=== PATIENT | male | born 1935 | race Caucasian/White ===

== ENCOUNTER 2017-04-17 09:54 | Inpatient (IN) | payer OTHER ==
[~2017-04-17] VITALS: Ht 157.5 cm; Wt 69.4 kg
[2017-04-17] MEDS ORDERED: NITROGLYCERIN 0.4 MG SL TAB SL ONE (10:30)
[2017-04-17] MEDS ORDERED: ASPirin 325 MG TAB PO ONE (10:30)
[2017-04-17 10:55] LABS: Basophils # (auto) 0.1 uL; Eosinophils # (auto) 0.2 uL; Eosinophils % (auto) 3.6 % (0.0-7.0); Hematocrit 38.3 % (41.0-53.0); Lymphocytes # (auto) 1.5 uL; Lymphocytes % (auto) 24.6 % (10.0-50.0); Mean Corpuscular Hemoglobin 32.9 pg (28.0-32.0); Mean Corpuscular Hgb Conc. 33.9 g/dL (32.0-36.0); Mean Corpuscular Volume 96.8 fL (80.0-100.0); Monocytes # (auto) 0.7 uL; Monocytes % (auto) 11.3 % (0.0-12.0); Neutrophils # (auto) 3.6 uL; Neutrophils % (auto) 59.5 % (37.0-80.0); Nucleated Red Blood Cells % 0.1 %; Platelet Count (auto) 158 10^3/uL (140-450); Red Blood Cells 3.96 10^6/uL (4.5-5.90); Red Cell Distribution Width 14.2 % (11.8-14.3)
[2017-04-17 11:11] LABS: Partial Thromboplastin Time 26.8 sec (22.64-33.71); Prothrombin Time 10.9 sec (9.37-12.3)
[2017-04-17 11:23] LABS: Alanine Aminotransferase 22 U/L (16-61); Albumin 3.4 g/dL (3.4-5.0); Alkaline Phosphatase 108 U/L (45-117); Anion Gap 7 (5-15); Aspartate Aminotransferase 21 U/L (15-37); BUN/Creatinine Ratio 22.4; Bilirubin, Total 0.5 mg/dL (0.2-1.0); Blood Urea Nitrogen 26 mg/dL (7-18); Calcium 8.3 mg/dL (8.5-10.1); Carbon Dioxide 26 mmol/L (21-32); Chloride 107 mmol/L (98-107); GFR African American 78 mL/min; GFR Non-African American 64 mL/min; Glucose 70 mg/dL (74-106); Potassium 4.1 mmol/L (3.5-5.1); Sodium 140 mmol/L (136-145); Total Protein 6.5 g/dL (6.4-8.2)
[2017-04-17 11:32] LABS: Urine Bacteria NONE SEEN /hpf (None Seen); Urine Blood Negative /uL (Negative); Urine Specific Gravity 1.023 (1.001-1.035); Urine WBC <1 /hpf (0 - 3)
[2017-04-17] MEDS ORDERED: ACETAMINOPHEN 500 MG TAB PO PRN (12:00)
[2017-04-17] MEDS ORDERED: TEMAZEPAM 15 MG CAP PO PRN (12:00)
[2017-04-17] MEDS ORDERED: LACTULOSE 20Gm/30ML SOLN PO PRN (12:00)
[2017-04-17] MEDS ORDERED: LORazepam 0.5 MG TAB PO PRN (12:00)
[2017-04-17] MEDS ORDERED: NITROGLYCERIN 0.4 MG SL TAB SL PRN (12:00)
[2017-04-17] MEDS ORDERED: HYDROcodone-ACET 5/325MG TAB PO PRN (12:00)
[2017-04-17] MEDS ORDERED: PROMETHAZINE HCL 25 MG/ML 1ML IV PRN (12:00)
[2017-04-17] MEDS ORDERED: MORPHINE SULF INJ 2 MG/ML SYRINGE 1ML IV PRN ×2 (12:15)
[2017-04-17] MEDS: SODIUM CHLORIDE 0.9% 1,000 ML IV SCH (12:24)
[2017-04-17] MEDS: NITROGLYCERIN 0.2MG/HR TOPICAL PATCH TD SCH (12:25)
[2017-04-17] MEDS: ENOXAPARIN SOD 40 MG/0.4 ML SYRINGE SC SCH (12:25)
[2017-04-17] MEDS: FAMOTIDINE 20 MG TAB PO SCH ×2 (12:25→21:58)
[2017-04-17 12:50] LABS: CRP High Sensitivity 0.38 mg/dL (< 0.3)
[2017-04-17] MEDS ORDERED: ENOXAPARIN SOD 80 MG/0.8ML SYRINGE SC ONE (13:15)
[2017-04-17] MEDS ORDERED: IOHEXOL 350 MG/ML 100ML IJ ONE (13:22)
[2017-04-17] MEDS ORDERED: RANOLAZINE ER 500 MG TAB PO ONE (14:00)
[2017-04-17 14:18] VITALS: BP 153/77
[2017-04-17] MEDS ORDERED: ATOR40TA52 PO (16:11)
[2017-04-17] MEDS ORDERED: LEVO25TA6 PO (16:11)
[2017-04-17] MEDS ORDERED: OMEP20CA74 PO (16:11)
[2017-04-17] MEDS ORDERED: RANO500T PO (16:11)
[2017-04-17] MEDS ORDERED: ASPI81TA27 PO (16:11)
[2017-04-17] MEDS ORDERED: TERA2CAP45 PO (16:11)
[2017-04-17] MEDS ORDERED: LATA0.0015 EACHEYE (16:11)
[2017-04-17] MEDS ORDERED: CAR125T PO (16:11)
[2017-04-17] MEDS ORDERED: NITR0.4S29 SL (16:12)
[2017-04-17] MEDS ORDERED: BUDE0.5S IN (16:12)
[2017-04-17 17:01] VITALS: BP 130/73
[2017-04-17 20:00] VITALS: BP 131/83
[2017-04-17] MEDS: RANOLAZINE ER 500 MG TAB PO SCH (21:58)
[2017-04-17] MEDS ORDERED: ATORVASTATIN 20 MG TAB PO SCH (22:00)
[2017-04-17 22:33] VITALS: BP 131/83
[2017-04-18] MEDS: SODIUM CHLORIDE 0.9% 1,000 ML IV SCH (01:29)
[2017-04-18 05:46] VITALS: BP 121/69
[2017-04-18 07:03] LABS: Albumin 3.1 g/dL (3.4-5.0); Bilirubin, Total 0.6 mg/dL (0.2-1.0); Calcium 8.2 mg/dL (8.5-10.1); Potassium 3.7 mmol/L (3.5-5.1); Total Protein 6.1 g/dL (6.4-8.2)
[2017-04-18 08:52] VITALS: BP 149/78
[2017-04-18] MEDS ORDERED: ASPirin 81 mg TAB PO SCH (10:00)
[2017-04-18] MEDS: FAMOTIDINE 20 MG TAB PO SCH (10:26)
[2017-04-18] MEDS: ENOXAPARIN SOD 40 MG/0.4 ML SYRINGE SC SCH (10:27)
[2017-04-18] MEDS: NITROGLYCERIN 0.2MG/HR TOPICAL PATCH TD SCH (10:29)
[2017-04-18] MEDS: RANOLAZINE ER 500 MG TAB PO SCH (10:39)
[2017-04-18 15:37] VITALS: BP 149/78
== END 2017-04-18 16:00 | disposition home or self-care (01) | DRG 309 ==
LOC: ER 09:54 → TELE 09:55 → TELE-WESTW 12:43
PROVIDERS: ADMIT Internal Medicine; ATTEND Internal Medicine
DX: R00.1 Bradycardia, unspecified (principal); I24.9 Acute ischemic heart disease, unspecified; E11.9 Type 2 diabetes mellitus without complications; J98.11 Atelectasis; R07.9 Chest pain, unspecified; J44.9 Chronic obstructive pulmonary disease, unspecified; I25.10 Atherosclerotic heart disease of native coronary artery without angina pectoris; I10 Essential (primary) hypertension; E78.5 Hyperlipidemia, unspecified; I70.0 Atherosclerosis of aorta; R91.1 Solitary pulmonary nodule; Z79.82 Long term (current) use of aspirin; Z79.899 Other long term (current) drug therapy; Z79.02 Long term (current) use of antithrombotics/antiplatelets; Z95.5 Presence of coronary angioplasty implant and graft; Z95.1 Presence of aortocoronary bypass graft; Z85.46 Personal history of malignant neoplasm of prostate
CPT/HCPCS: 36415; 71045; 71275; 80053; 80061; 81001; 82550; 83880; 84443; 84484; 85025; 85379; 85610; 85652; 85730; 86141; 93005; 93306

== ENCOUNTER 2024-03-25 09:27 | Inpatient (IN) | payer OTHER ==
[~2024-03-25] VITALS: Ht 157.5 cm; Wt 77.5 kg
[~2024-03-25 09:27] MED LIST: AMLO1TAB22 PO; APIX2.5T PO; ASPI-543 PO; ATOR40TA52 PO; BICA50TA42 PO; BRIM0.2S17 LEFTEYE; BUDE0.5S IN; CAR125T PO; CARB200T4 PO; EZET10TA22 PO; FERR325T20 PO; FLUT50SP NAS; FURO20TA3 PO; KETO2CRE4 TOP; LATA0.008 EACHEYE; LEVO25TA6 PO; LEVO75TA6 PO; LOS25T PO; MET25T PO; NITR0.4S29 SL; OMEP20CA74 PO; RANO500T PO; ROSU40TA47 PO; TERA2CAP79 PO
--- NOTE | 2024-03-25 10:23 | ED.PDOC ---
SOB-HPI HPI Comments Initial Vital Signs: Temp :99.6 BP:100/67 HR:142 RR:16 SpO2: 94 Past Medical History: Denies Past Surgical History: Denies Social History: Denies smoking, ETOH, or drug use. Medications: No medications. Allergies: NKDA HPI: Poor Historian. 88-year-old male brought in by ambulance from home for evaluation of I can not really tell you why I am here however patient states he has been having some chills that goes away and he takes Tylenol at home. He also states having decreased p.o. intake unknown reason. Denies any pain anywhere in his body. Patient has history of hemorrhoids and he stopped taking his blood thinners which has not know exactly the name of for few days. He is not clear whether he resumed it or not. Patient was found with hypoxemia at home was placed on supplemental oxygen. Past Medcial History: Past Surgical History: REVIEW OF SYSTEMS: CONSTITUTIONAL: Denies acute: fever, diaphoresis, HEAD: Denies acute: headache, photophobia Eyes: Denies acute: Double vision, vision loss, eye pain, eye discharge. EARS: Denies acute: tinnitus, hearing loss, ear discharge, ear pain, THROAT: Denies acute: sore throat, swelling, difficulty swallowing , pain with swallowing, change in voice. NECK: Denies acute: neck pain, neck swelling, stiff neck. HEART: Denies acute : chest pain, palpitations, LUNGS: Denies acute: SOB, wheezing, cough, hemoptysis ABDOMEN: Denies acute: abdominal pain, Nausea, Vomiting, diarrhea, melena , hematemesis, hematochezia SKIN: Denies acute: rash, redness, lesions, itchiness. EXTREMITIES: Denies acute: calf pain, numbness, tingling, weakness, denies pain in extremity. Denies acute: Low back pain. Neuro: Denies acute: focal neurological deficit, motor or sensory focal neurological deficit, tremors, seizure like activity, confusion, dizziness, change in mental status, loss of bowel or bladder function, cauda equina like symptoms. : Denies acute: dysuria, hematuria, flank pain, increase in urinary frequency. PSYCH: Denies acute: hallucination, suicidal ideation, homicidal ideation. PHYSICAL EXAM: General: no acute distress, awake and alert. Head: normocephalic, atraumatic. Neck: supple, trachea is midline, no swelling. Throat: Normal phonation. Eyes:, no erythema, no purulent discharge, no proptosis, no icterus. Heart: regular rate, regular rhythm, no significant murmur appreciated. Lungs: no apparent respiratory distress, Able to speak in full sentences. No wheezing, no rhonchi, no crackles. No stridors Clear to auscultation bilaterally. Abdomen: non tender to palpation, non distended, soft, no guarding, no rebound, + bowel sounds. Neuro: Awake, Alert, oriented to name, self, situation, follows commands GCS=15. Speech is normal. Skin: no petechia, no purpura, no cyanosis, non-pale, not jaundice. Lower extremities: --no - Pitting edema no deformity, no focal swelling, no calf TTP. Makes eye contact. moves all four extremities. Face: no apparent facial droop. ED COURSE: @11:46 am Chief Complaint: Shortness of Breath Time Seen by MD: 10:14 Primary Care Provider: ASHLEY Vergara notes: Nurses Notes, Allergies Information Source: Patient Mode of Arrival: EMS Past Medical History PAST MEDICAL HISTORY: CAD, COPD, HTN Surgical History: CABG, PTCA Family History Family History: Unknown Social History Smoker: Non-Smoker Alcohol: Denies ETOH Use Drugs: Denies Drug Use Lives In: Home Physical Exam General Appearance: Other (a) HEENT: Other (a) Neck: Other (a) Respiratory: Other (a) Cardiovascular: Other (a) Breast Exam: Other (a) Gastrointestinal: Other (a) Genitalia: Other (a) Pelvic: Other (a) Rectal: Other (a) Extremities: Other (a) Neurologic: Other (a) Cerebellar Function: Other (a) Reflexes: Other (a) Skin: Other (a) Lymphatic: Other (a) Was a procedure done? Was a procedure done?: No Differential Dx Differential Diagnosis: Other (DDx include ACS, unstable angina, anxiety, PE, pneumothroax, neoplasm, cardiac ischemia, COPD, asthma, CHF, pleural effusion, tobacco abuse, pneumonia, hypoxia, hypercapnia, anemia., infection/sepsis., pulmonary edema. Asthma, Cardiac tamponade, infection.) X-Ray, Labs, Meds, VS Vital Signs Date Time Temp Pulse Resp B/P (MAP) Pulse Ox O2 Delivery O2 Flow Rate FiO2 03/25/24 12:48 97.7 100 16 95/49 (64) 95 97.7 03/25/24 12:46 100 16 95 Nasal Cannula 4.0 03/25/24 09:47 99.6 142 16 100/67 (78) 94 03/25/24 09:31 131 Lab Test 03/25/24 13:12 03/25/24 11:56 03/25/24 11:54 03/25/24 10:43 Range/Units Troponin I High Sensitivity 6 6 6 </=54 ng/L Thyroid Stimulating Hormone (TSH) 0.79 0.55-4.78 uIU/mL Influenza Type A Antigen Negative Negative Influenza Type B Antigen Negative Negative SARS-CoV-2 Antigen (Rapid) Negative NEGATIVE White Blood Count 13.8 H 4.4-10.8 10^3/uL Red Blood Count 3.43 L 4.5-5.90 10^6/uL Hemoglobin 11.0 L 13.5-17.5 g/dL Hematocrit 32.7 L 41.0-53.0 % Mean Corpuscular Volume 95.4 80.0-100.0 fL Mean Corpuscular Hemoglobin 32.2 H 28.0-32.0 pg Mean Corpuscular Hemoglobin Concent 33.7 32.0-36.0 g/dL Red Cell Distribution Width 15.2 H 11.8-14.3 % Platelet Count 271 140-450 10^3/uL Mean Platelet Volume 8.6 6.9-10.8 fL Neutrophils (%) (Auto) 83.7 H 37.0-80.0 % Lymphocytes (%) (Auto) 4.7 L 10.0-50.0 % Monocytes (%) (Auto) 11.1 0.0-12.0 % Eosinophils (%) (Auto) 0.3 0.0-7.0 % Basophils (%) (Auto) 0.2 0.0-2.0 % Neutrophils # (Auto) 11.5 H 1.6-8.6 10 ^3/uL Lymphocytes # (Auto) 0.7 0.4-5.4 10 ^3/uL Monocytes # (Auto) 1.5 H 0-1.3 10 ^3/uL Eosinophils # (Auto) 0 0-0.8 10 ^3/uL Basophils # (Auto) 0 0-0.2 10 ^3/uL Nucleated Red Blood Cells 0.0 % Sodium Level 139 136-145 mmol/L Potassium Level 3.8 3.5-5.1 mmol/L Chloride Level 107 98-107 mmol/L Carbon Dioxide Level 27 20-31 mmol/L Anion Gap 5 5-15 Blood Urea Nitrogen 20 9-23 mg/dL Creatinine 1.33 H 0.700-1.30 mg/dL Glomerular Filtration Rate Calc 51 >90 mL/min BUN/Creatinine Ratio 15.0 10.0-20.0 Serum Glucose 104 74-106 mg/dL Lactic Acid Level 1.2 0.4-2.0 mmol/L Calcium Level 8.3 L 8.7-10.4 mg/dL Magnesium Level 2.0 1.6-2.6 mg/dL Total Bilirubin 0.5 0.2-1.0 mg/dL Aspartate Amino Transferase (AST) 262 H 13-40 U/L Alanine Aminotransferase (ALT) 196 H 7-40 U/L Alkaline Phosphatase 93 46-116 U/L B-Type Natriuretic Peptide 288.25 0-100 pg/mL Total Protein 5.4 L 5.7-8.2 g/dL Albumin 3.1 L 3.2-4.8 g/dL Microbiology Date/Time Source Procedure Growth Status 03/25/24 12:15 Blood Blood Culture - Final NO GROWTH AFTER 5 DAYS OF INCUBATION. Complete 03/25/24 11:54 Blood Blood Culture - Final NO GROWTH AFTER 5 DAYS OF INCUBATION. Complete [place] [id number] Ph: [phone] DIAGNOSTIC IMAGING Diagnostic Imaging Report : [id number] Signed PATIENT: ZANDER UMANZOR PACCT: [id number] UNIT: [id number] : 1935 LOC: ER ROOM / BED: / AGE / SEX: 88 / M ADM STATUS: REG ER SERVICE 1022 ORDERING PHYSICIAN: BOOM HART DO PROCEDURE(s): CXRP - CHEST PORTABLE REASON: chills, hypoxemia ORDER NUMBER(s): [id number], ACCESSION NUMBER(s): [id number] EXAM: XY CHEST PORTABLE Indication: chills, hypoxemia Technique: Single frontal view of the chest was obtained Comparison: None FINDINGS: Lines and Tubes: None Lungs: Multifocal left lung opacities. Pleura: Small left effusion. No pneumothorax. Cardiomediastinal contours: Unremarkable. Atherosclerotic vascular calcifications of the thoracic aorta are noted. Bones: No acute osseous abnormality. IMPRESSION: Multifocal left lung opacities. Small left pleural effusion. ATED BY: VIANEY ANNA MD DICTATED DATE/TIME: 03/25/241054 SIGNED BY: VIANEY ANNA MD SIGNED DATE/TIME: 03/25/241054 CC: Time of 1ST Reevaluation: 11:16 Reevaluation 1ST: Unchanged Patient Education/Counseling: Diagnosis, Treatment Family Education/Counseling: No Family Present Comments Patient presented with 88-year-old male brought in by ambulance from home for evaluation of I can not really tell you why I am here however patient states he has been having some chills that goes away and he takes Tylenol at home. Patient was found with the above mentioned diagnosis. the following medications were ordered: METOPROL 5MG, NS1L, FUROSEMIDE 20MG the following tests were ordered: LABS, CXR, UA Patient ED course and VS have been stabilized. Patient has been reassessed in the ED and remained in a stable condition. Pertinent incidental findings were discussed with the patient and/or family. Patient/family voices understanding and is agreeable with plan. Patient has been observed in the ED adequate length of time to insure improvement/stability. Escalation of care considered: Consideration of escalation to observation or admission Patient was ADMITTED to the medicine team for further evaluation and treatment of their presentation. All the reports of any imaging studies that were ordered by myself were reviewed by myself. Departure 1 Departure Time of Disposition: 11:14 Impression: Primary Impression: Multifocal pneumonia Additional Impressions: Pleural effusion Elevated LFTs Disposition: ADMITTED INPATIENT Admit to: Tele Condition: Guarded Additional Instructions: e-Prescriptions Doxycycline Monohydrate (Doxycycline Monohydrate) 100 Mg Cap 1 CAP PO BID, #20 CAP Prov: SHANE FULTON MD 03/30/24 Methylprednisolone (Medrol Dosepak) 4 Mg Attila 4 MG PO UD, #21 TAB UAD Prov: SHANE FULTON MD 03/30/24 Discharged With: Self Critical Care Note Critical Care Time?: No Stability Stability form required: No Heart Score Heart Score: Heart Score Response (Comments) Value History Slightly Suspicious 0 EKG Normal 0 Age >65 2 Risk Factors >3 or Hx ASHD 2 Troponin Normal limit 0 Total 4 I personally scribed for TANNERBOOM OLEA DO ([email or web address]) on 03/25/24 at 10:23. Electronically submitted by Erika Anguiano ([email or web address]). I personally scribed for BOOM HART J DO ([email or web address]) on 03/25/24 at 10:24. Electronically submitted by Erika Anguiano ([email or web address]). I personally scribed for TANNERBI OLEAE J DO ([email or web address]) on 03/25/24 at 10:27. Electronically submitted by Erika Anguiano ([email or web address]). I personally scribed for BOOM HART J DO ([email or web address]) on 03/25/24 at 10:59. Electronically submitted by Erika Anguiano ([email or web address]). I personally scribed for BOOM HART J DO ([email or web address]) on 03/25/24 at 11:45. Elec tronically submitted by Erika Anguiano ([email or web address]). I personally scribed for BI HARTE J DO ([email or web address]) on 03/25/24 at 22:34. Electronically submitted by Erika Anguiano ([email or web address]). BI HARTE J DO Mar 25, 2024 10:23
--- NOTE | 2024-03-25 10:56 | DVH ---
EXAM: XY CHEST PORTABLE Indication: chills, hypoxemia Technique: Single frontal view of the chest was obtained Comparison: None FINDINGS: Lines and Tubes: None Lungs: Multifocal left lung opacities. Pleura: Small left effusion. No pneumothorax. Cardiomediastinal contours: Unremarkable. Atherosclerotic vascular calcifications of the thoracic ao rta are noted. Bones: No acute osseous abnormality. IMPRESSION: Multifocal left lung opacities. Small left pleural effusion.
[2024-03-25 11:34] LABS: Alkaline Phosphatase 93 U/L (46-116); Anion Gap 5 (5-15); Blood Urea Nitrogen 20 mg/dL (9-23); Carbon Dioxide 27 mmol/L (20-31); Glucose 104 mg/dL (74-106); Potassium 3.8 mmol/L (3.5-5.1); Sodium 139 mmol/L (136-145)
[2024-03-25 11:35] LABS: Bilirubin, Total 0.5 mg/dL (0.2-1.0)
[2024-03-25 11:39] LABS: Alanine Aminotransferase 196 U/L (7-40); Albumin 3.1 g/dL (3.2-4.8); Aspartate Aminotransferase 262 U/L (13-40); Calcium 8.3 mg/dL (8.7-10.4); Chloride 107 mmol/L (98-107); Total Protein 5.4 g/dL (5.7-8.2)
[2024-03-25 11:48] LABS: Basophils # (auto) 0 10 ^3/uL (0-0.2); Basophils % (auto) 0.2 % (0.0-2.0); Eosinophils # (auto) 0 10 ^3/uL (0-0.8); Eosinophils % (auto) 0.3 % (0.0-7.0); Hematocrit 32.7 % (41.0-53.0); Lymphocytes # (auto) 0.7 10 ^3/uL (0.4-5.4); Lymphocytes % (auto) 4.7 % (10.0-50.0); Mean Corpuscular Hemoglobin 32.2 pg (28.0-32.0); Mean Corpuscular Hgb Conc. 33.7 g/dL (32.0-36.0); Mean Corpuscular Volume 95.4 fL (80.0-100.0); Monocytes # (auto) 1.5 10 ^3/uL (0-1.3); Monocytes % (auto) 11.1 % (0.0-12.0); Neutrophils # (auto) 11.5 10 ^3/uL (1.6-8.6); Neutrophils % (auto) 83.7 % (37.0-80.0); Platelet Count (auto) 271 10^3/uL (140-450); Red Blood Cells 3.43 10^6/uL (4.5-5.90); Red Cell Distribution Width 15.2 % (11.8-14.3); White Blood Cell 13.8 10^3/uL (4.4-10.8)
[2024-03-25] MEDS: PIPERACILLIN-TAZOB 3.375GM 100 ML IV ONE (12:35)
[2024-03-25] MEDS: SODIUM CHLORIDE 0.9% 1,000 ML IV ONE ×2 (12:45→20:21)
[2024-03-25 13:25] LABS: COVID19 ANTIGEN SOFIA FIA NEGATIVE (NEGATIVE)
[2024-03-25 13:27] LABS: Rapid Influenza A Negative (Negative); Rapid Influenza B Negative (Negative)
[2024-03-25] MEDS ORDERED: ACETAMINOPHEN 325 MG TAB PO PRN (16:00)
[2024-03-25] MEDS ORDERED: LEVOTHYROXINE SODIUM 25 MCG TAB PO ONE (17:00)
[2024-03-25] MEDS: IPRATROPIUM BROM 0.5 MG/2.5ML INH SOL NEB SCH (18:02)
[2024-03-25] MEDS: ALBUTEROL SULF 2.5 MG/0.5ML(0.5%) NEB SOLN NEB SCH ×2 (18:02→20:00)
[2024-03-25 18:07] LABS: INR 1.35 (0.9-1.15)
--- NOTE | 2024-03-25 18:56 | DVHHPRES ---
History of Present Illness Resident Creating Document: VALENTIN VALLE RESIDENT Reason for Visit: acute hypoxic respiratory failure History of Present Illness 88-year-old male patient with past medical history of coronary artery disease status post CABG, COPD, hypertension, hypothyroidism, obesity, atrial fibrillation, BPH, nicotine dependency 40 years ago,, who was brought to the emergency department with a chief complaint of productive cough (bright red blood streaks) and shortness of breaths . The patient reports these symptoms have been going on for awhile, he reports he has to sleep on a 45 degree position to avoid the shortness of breath, and he gets tired easily when he walk in his house, he also mentioned bilateral lower extremities swelling episodes happen frequently. (Per daughter) he was treated on [facility] recently, medical records from that facility were ordered. Patient was examined at bedside, he is still complaining of productive cough and shortness of breaths. On admission vital signs showed elevated temperature, heart rate, low blood pressure and increased white blood cell counts with a possible source of infection being the lungs as recent chest x-rays showed Multifocal left lung opacities and Small left pleural effusion. Laboratory showed transaminitis,(per paramedics) patient had a episode of atrial fibrillation with RVR on the way to the hospital. Recent creatinine levels slightly elevated with a GFR of 51. Patient was started on empiric antibiotic for community-acquired pneumonia, CT angiogram chest was ordered to rule out pulmonary embolism, patient was started on med neb and prednisone and medical records were requested from [facility]. Cardiovascular: AFIB, CAD, CHF, HTN Pulmonary: COPD, Pneumonia GI: GERD Past Surgical History: Total hip replacement Smoke: Quit ALCOHOL: none Drugs: None Domestic Violence: Neg Review of Systems Review of Systems Review of systems Constitutional: No: Fever, Chills, Sweats, Weakness, Malaise, Other Eyes: No: Pain, Vision change, Conjunctivae inflammation, Eyelid inflammation, Other, Redness ENT: No: Ear pain, Ear discharge, Nose pain, Nose discharge, Nose congestion, Mouth pain, Mouth swelling, Throat pain, Throat swelling, Other Respiratory: Cough present, Shortness of breath, hemoptysis Saqib Wheezing,Other Cardiovascular: No: Chest Pain, Palpitations, Orthopnea, Paroxysmal Noc. Dyspnea, Edema, Lt Headedness, Other Gastrointestinal: No: Nausea, Vomiting, Abdominal Pain, Diarrhea, Constipation, Melena, Hematochezia, Other Musculoskeletal: No: other, neck pain, shoulder pain, arm pain, back pain, hand pain, leg pain, foot pain Neurological:; No: Weakness, Numbness, Incoordination, Change in speech, Confusion, Seizures Allergies: Coded Allergies: NO KNOWN ALLERGIES (Unverified , 04/17/17) Medications Current Medications Medications Dose Ordered Sig/Renan Route Start Time Stop Time Status Last Admin Dose Admin Acetaminophen 325 mg Q4HP PRN PO 03/25/24 16:00 Ceftriaxone Sodium 50 ml @ 100 mls/hr DAILY@09 IV 03/26/24 09:00 Azithromycin 250 ml @ 125 mls/hr DAILY IV 03/26/24 10:00 Prednisone 30 mg DAILY PO 03/26/24 10:00 Ipratropium [place] 0.5 mg Q6HWA [facility] 03/25/24 18:00 03/25/24 18:02 0.5 MG Albuterol 2.5 mg Q6HWA [facility] 03/25/24 18:00 03/25/24 18:02 2.5 MG Levothyroxine Sodium 25 mcg QAM@0600 PO 03/26/24 06:00 Enoxaparin Sodium 40 mg DAILY SC 03/26/24 10:00 Exam Vital Signs Vital Signs Date Time Temp Pulse Resp B/P (MAP) Pulse Ox O2 Delivery O2 Flow Rate FiO2 03/25/24 12:48 97.7 100 16 95/49 (64) 95 97.7 03/25/24 12:46 Nasal Cannula 4.0 Exam Examination General Appearance: Alert, Oriented X3, Cooperative, No acute distress HEENT: EOMI Respiratory: Some crackles bilaterally, Normal air movement Cardiovascular: Irregular rate and rhythm Normal S1, Normal S2 Abdominal: Normal bowel sounds Extremities: No cyanosis, No edema, Normal pulses, No tenderness/swelling Skin: No rashes, No breakdown Neuro: Normal speech, Strength at 5/5 X4 ext, Normal tone, Sensation intact, Cranial nerves 3-12 NL, Reflexes 2+ Psych/Mental Status: Mental status NL, Mood NL Labs/Xrays Labs Test 03/25/24 17:06 03/25/24 13:12 03/25/24 11:56 03/25/24 10:43 Range/Units Prothrombin Time 14.0 H 9.3-11.8 sec Prothrombin Time INR 1.35 H 0.9-1.15 Troponin I High Sensitivity 6 </=54 ng/L Thyroid Stimulating Hormone (TSH) 0.79 0.55-4.78 uIU/mL Influenza Type A Antigen Negative Negative Influenza Type B Antigen Negative Negative SARS-CoV-2 Antigen (Rapid) Negative NEGATIVE White Blood Count 13.8 H 4.4-10.8 10^3/uL Red Blood Count 3.43 L 4.5-5.90 10^6/uL Hemoglobin 11.0 L 13.5-17.5 g/dL Hematocrit 32.7 L 41.0-53.0 % Mean Corpuscular Volume 95.4 80.0-100.0 fL Mean Corpuscular Hemoglobin 32.2 H 28.0-32.0 pg Mean Corpuscular Hemoglobin Concent 33.7 32.0-36.0 g/dL Red Cell Distribution Width 15.2 H 11.8-14.3 % Platelet Count 271 140-450 10^3/uL Mean Platelet Volume 8.6 6.9-10.8 fL Neutrophils (%) (Auto) 83.7 H 37.0-80.0 % Lymphocytes (%) (Auto) 4.7 L 10.0-50.0 % Monocytes (%) (Auto) 11.1 0.0-12.0 % Eosinophils (%) (Auto) 0.3 0.0-7.0 % Basophils (%) (Auto) 0.2 0.0-2.0 % Neutrophils # (Auto) 11.5 H 1.6-8.6 10 ^3/uL Lymphocytes # (Auto) 0.7 0.4-5.4 10 ^3/uL Monocytes # (Auto) 1.5 H 0-1.3 10 ^3/uL Eosinophils # (Auto) 0 0-0.8 10 ^3/uL Basophils # (Auto) 0 0-0.2 10 ^3/uL Nucleated Red Blood Cells 0.0 % Sodium Level 139 136-145 mmol/L Potassium Level 3.8 3.5-5.1 mmol/L Chloride Level 107 98-107 mmol/L Carbon Dioxide Level 27 20-31 mmol/L Anion Gap 5 5-15 Blood Urea Nitrogen 20 9-23 mg/dL Creatinine 1.33 H 0.700-1.30 mg/dL Glomerular Filtration Rate Calc 51 >90 mL/min BUN/Creatinine Ratio 15.0 10.0-20.0 Serum Glucose 104 74-106 mg/dL Lactic Acid Level 1.2 0.4-2.0 mmol/L Calcium Level 8.3 L 8.7-10.4 mg/dL Magnesium Level 2.0 1.6-2.6 mg/dL Total Bilirubin 0.5 0.2-1.0 mg/dL Aspartate Amino Transferase (AST) 262 H 13-40 U/L Alanine Aminotransferase (ALT) 196 H 7-40 U/L Alkaline Phosphatase 93 46-116 U/L B-Type Natriuretic Peptide 288.25 0-100 pg/mL Total Protein 5.4 L 5.7-8.2 g/dL Albumin 3.1 L 3.2-4.8 g/dL Assessment/Plan Assessment/Plan #Acute hypoxemic respiratory failure likely multifactorial due to systolic/diastolic heart failure exacerbation, COPD exacerbation, multifocal pneumonia, pulmonary embolism -obtain medical records from previous facility -patient admitted to telemetry. 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 Case discussed with Dr. Hernandez Goals of care discussed with the patient for 32 minutes Code status: Full code Plan discussed with: Patient, Daughter My Orders Orders - VALENTIN VALLE RESIDENT Procedure Category Date Status Time Admit ADMIT 03/25/24 Transmitted 15:50 Code Status CODE 03/25/24 Transmitted 15:50 Oxygen Per Hour RT 03/25/24 Transmitted 15:50 Acetaminophen Tablet PHA 03/25/24 In Process (Tylenol Tablet) 16:00 Complete Blood Count LAB 03/26/24 Verified 04:00 Comprehensive LAB 03/26/24 Verified Metabolic Panel 04:00 Npo (Nothing By DIET 03/25/24 Transmitted Mouth) Diet Dinner Echo 2d Mode Cardiac US 03/25/24 Logged DOP 15:50 Oxygen By Nasal RT 03/25/24 Transmitted Cannula 15:50 Stat Ekg For Chest CORY 03/25/24 In Process Pain 15:50 Notify Of Changes CORY 03/25/24 In Process From Base 15:50 Auditing Manager For CORY 03/25/24 In Process 24 Hours 15:50 Emergency Dysrhythmia CORY 03/25/24 In Process Protocol 15:50 Rhythm Strips Once CORY 03/25/24 In Process Every Shift 15:50 Sodium Chloride 0.9% PHA 03/25/24 In Process 16:00 Urine Sodium LAB 03/25/24 Logged 16:01 Osmolality Urine LAB 03/25/24 Logged 16:01 Respiratory Culture BABAK 03/25/24 Logged W/ Gs 16:01 Strict I & O CORY 03/25/24 In Process 16:01 Urinalysis LAB 03/25/24 Logged 16:06 Abdomen Complete US 03/25/24 Logged Sonogram 16:[address] 03/25/24 Logged Contrast 16:47 Ceftriaxone 1gm/50ml PHA 03/26/24 In Process D5w (Rocephin) 09:00 Azithromycin 500mg/ PHA 03/26/24 In Process 250ml (Zithromax 50 10:00 Azithromycin 500mg/ PHA 03/25/24 In Process 250ml (Zithromax 50 17:00 Prednisone Tablet PHA 03/26/24 In Process 10:00 Ipratropium Medneb PHA 03/25/24 In Process (Atrovent Medneb) 18:00 Albuterol Medneb PHA 03/25/24 In Process (Ventolin Medneb) 18:00 Levothyroxine Tablet PHA 03/26/24 In Process (Synthroid Tablet) 06:00 Enoxaparin Sodium PHA 03/26/24 In Process (Lovenox) 10:00 Date of Service: Mar 25, 2024 Billing Provider: ALICIA MURPHY MD Common Visit Codes: [id number] INP/OBS CARE (HIGH) VALENTIN VALLE RESIDENT Mar 25, 2024 18:56 ALICIA MURPHY MD Mar 29, 2024 20:44
[2024-03-25 19:00] VITALS: BP 95/49; PULSE 100; RESP 18; TEMP 97.7; O2SAT 95
--- NOTE | 2024-03-25 19:12 | DVH ---
INDICATION: TRANSAMINITIS,CKD TECHNIQUE: Multiple real-time sonographic images of the abdomen were obtained. COMPARISON: None FINDINGS: The liver is heterogeneous in echogenicity. The liver measures 14cm. No intrahepatic bilia ry ductal dilatation is noted. The gallbladder wall measures 0.3 cm and is unremarkable. Questionable gallstones within a contract ed gallbladder. Negative sonographic pennington's sign. The common duct measures 0.6 cm and is unremark able. No pericholecystic fluid is noted. The right kidney measures 9.6 cm. No hydronephrosis. The left kidney measures 9.7 cm. No hydronephr osis. The spleen measures 4 cm, within normal limits. The echogenicity is within normal limits. The pancreas is not well visualized due to obscuration from bowel gas. The visualized portions of the IVC and aorta are grossly unremarkable. IMPRESSION: Questionable cholelithiasis within a contracted gallbladder. No sonographic evidence of acute cholecy stitis. Hepatic steatosis versus medical liver disease.
[2024-03-25 20:00] VITALS: PULSE 135; RESP 30; O2SAT 98
[2024-03-25] MEDS: FUROSEMIDE 20 MG/2 ML VIAL IV ONE (20:10)
[2024-03-25] MEDS: predniSONE 20 MG TAB PO ONE (20:10)
[2024-03-25] MEDS: cefTRIAXone 1GM/50ML D5W 50 ML IV ONE (20:16)
[2024-03-25] MEDS: AZITHROMYCIN 500MG/ 250ML 250 ML IV ONE (20:35)
--- NOTE | 2024-03-25 20:47 | ECG ---
[facility] Test Date: 2024-03-25 Test Time: 20:45:52 Pat Name: ZANDER UMANZOR Department: er Room: [address] [place] [address] Gender: M Environmental Field Team Member: [email or web address] : 1935 Requested By: EITAN BUNCH Order Number: [id number] Reading MD: Measurements Intervals [place] Rate: 142 P: 0 NM: 0 QRS: 27 QRSD: 82 T: 77 QT: 304 QTc: 467 Interpretive Statements Atrial fibrillation with rapid V-rate Low voltage, extremity leads Anteroseptal infarct, old Please click the below link to view image of tracing.
[2024-03-25] MEDS ORDERED: VANCOMYCIN PER PHARMACY 0 MG IV SCH (21:15)
[2024-03-25] MEDS ORDERED: IOHEXOL 350 MG/ML 100ML IJ ONE (22:07)
[2024-03-25] MEDS: ACETAMINOPHEN 325 MG TAB PO PRN (22:09)
[2024-03-25 22:49] LABS: Urine Bacteria None Seen /hpf (None Seen)
[2024-03-25] MEDS: METOPROLOL TARTRATE 1MG/1ML-5ML VIAL IV ONE (23:04)
[2024-03-25] MEDS: MAGNESIUM SULFATE 1GM/100ML 100 ML IV ONE (23:05)
[2024-03-25] MEDS: DIGOXIN (250MCG/ML) 2 ML AMPULE IV ONE (23:05)
[2024-03-25 23:11] LABS: Urine Blood TRACE /uL (Negative); Urine Clarity Clear (Clear); Urine Color Yellow (Yellow); Urine Mucus FEW (None Seen); Urine Protein, UAD TRACE (Negative); Urine Specific Gravity 1.022 (1.001-1.035); Urine Squamous Epithelial Cell FEW /hpf (<5); Urine Urobilinogen Normal (Negative); Urine WBC 2 /hpf (0 - 3); Urine pH 5.5 (5.0-9.0)
[2024-03-25] MEDS: POTASSIUM EFFERVESENT TAB 25 MEQ PO ONE (23:40)
[2024-03-26] VITALS (11 sets, daily range): BP systolic 103–113; BP diastolic 62; PULSE 78–105; RESP 16–22; TEMP 97.1–97.4; O2SAT 84–99
[2024-03-26] MEDS: CEFEPIME 2GM/50ML NS 50 ML IV ONE (00:31)
[2024-03-26] MEDS: VANCOMYCIN 1GM/250mL NS or D5W KIT IV SCH (02:05)
[2024-03-26 05:47] LABS: Basophils # (auto) 0 10 ^3/uL (0-0.2); Basophils % (auto) 0.1 % (0.0-2.0); Eosinophils # (auto) 0 10 ^3/uL (0-0.8); Hematocrit 34.2 % (41.0-53.0); Hemoglobin 11.4 g/dL (13.5-17.5); Lymphocytes # (auto) 0.6 10 ^3/uL (0.4-5.4); Lymphocytes % (auto) 4.1 % (10.0-50.0); Mean Corpuscular Hemoglobin 32.2 pg (28.0-32.0); Mean Corpuscular Hgb Conc. 33.3 g/dL (32.0-36.0); Mean Corpuscular Volume 96.6 fL (80.0-100.0); Monocytes # (auto) 0.3 10 ^3/uL (0-1.3); Monocytes % (auto) 2.3 % (0.0-12.0); Neutrophils # (auto) 13.4 10 ^3/uL (1.6-8.6); Neutrophils % (auto) 93.5 % (37.0-80.0); Nucleated Red Blood Cells % 0.1 %; Platelet Count (auto) 270 10^3/uL (140-450); Red Blood Cells 3.55 10^6/uL (4.5-5.90); Red Cell Distribution Width 15.4 % (11.8-14.3); White Blood Cell 14.4 10^3/uL (4.4-10.8)
[2024-03-26] MEDS: LEVOTHYROXINE SODIUM 25 MCG TAB PO SCH (06:08)
[2024-03-26 06:38] LABS: Albumin 3.2 g/dL (3.2-4.8); Alkaline Phosphatase 109 U/L (46-116); Anion Gap 10 (5-15); BUN/Creatinine Ratio 14.9 (10.0-20.0); Bilirubin, Total 0.4 mg/dL (0.2-1.0); Blood Urea Nitrogen 18 mg/dL (9-23); Carbon Dioxide 20 mmol/L (20-31); Potassium 4.5 mmol/L (3.5-5.1); Sodium 139 mmol/L (136-145); Total Protein 5.8 g/dL (5.7-8.2)
[2024-03-26 06:43] LABS: Alanine Aminotransferase 324 U/L (7-40); Aspartate Aminotransferase 420 U/L (13-40); Calcium 8.3 mg/dL (8.7-10.4); Chloride 109 mmol/L (98-107); Glucose 129 mg/dL (74-106)
[2024-03-26] MEDS ORDERED: cefTRIAXone 1GM/50ML D5W 50 ML IV SCH (09:00)
--- NOTE | 2024-03-26 09:41 | DVHINCON2 ---
Date Seen: Mar 26, 2024 Referring Physician MD Lucio resident Reason for Consultation Afib RVR/ CHF exacerbation History of Present Illness This is an 88-year-old male patient who presents to the emergency room with chief complaint of decreased appetite, generalized weakness, and shortness of breath on and off for one week. The patient reports that his called EMS and he was brought to the emergency room for further evaluation. Initial twelve lead electrocardiogram reveals atrial fibrillation with rapid ventricular response. The patient denies any chest pain or palpitations. Initial and serial troponin levels have been negative. Initial BNP level of 288.25pg/mL. Significant past medical history includes severe coronary artery disease status post triple-vessel CABG in 1992, multiple PTCAs x3 POLY (on ASA), atrial fibrillation (on Eliquis), hypertension, hyperlipidemia, COPD without home O2, thyroid disease, TIA x3, Wilhelm's palsy, prostate cancer status post radiation, hard of hearing, and obesity. 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 Past Medical History Past medical history reviewed. No other significant than mentioned above. Past Surgical History Triple-vessel CABG in 1992 Bilateral hip replacement Multiple bladder surgeries Bilateral cataract removal Left carpal tunnel surgery Skin cancer removal on forehead Family History: Patient reports no known family medical history. Family History Family history reviewed. Social History Patient has a 16 pack-year history, quit smoking in 1976 Patient denies any illicit drug use Patient denies any alcohol use Allergies: Coded Allergies: NO KNOWN ALLERGIES (Unverified , 04/17/17) Home Meds Reported Medications Budesonide (Inhalation) (Budesonide) 0.5 Mg/2 Ml Viviana, 0.5 MG IN BID 04/17/17 Nitroglycerin (NTROSTAT SUBLINGUAL) 0.4 Mg Sl, 0.4 MG SL PRN *MAY REPEAT EVERY 5 MINUTES X 3 TOTAL IF NO RELIEF, INITIATE ANALGESIC THERAPY. NOTIFY PHYSICIAN *Do not crush. 04/17/17 Latanoprost (LATANOPROST) 0.005 % Delaney, 1 DROP EACHEYE BID, #2.5 ML 3 Refills 04/17/17 Terazosin Hcl (Terazosin Hcl) 2 Mg Cap, 2 MG PO HS for 30 Days, MG 04/17/17 Atorvastatin Calcium (ATORVASTATIN CALCIUM) 40 Mg Tab, 1 TAB PO QPM, #90 TAB 3 Refills 04/17/17 Carvedilol (Coreg) 12.5 Mg Tab, 1 TAB PO BID, #180 TAB 1 Refill 04/17/17 Ranolazine (Ranexa) 500 Mg Tab, 500 MG PO, TAB 04/17/17 Omeprazole (PRILOSEC) 20 Mg Cap, 1 CAP PO DAILY, #90 CAP 1 Refill 04/17/17 Levothyroxine Sodium (Levothyroxine Sodium) 25 Mcg Tab, 1 TAB PO DAILY, #30 TAB 5 Refills 04/17/17 Aspirin (Aspir-Low) 81 Mg Tab, 81 MG PO DAILY for 30 Days, MG 04/17/17 Home Meds Home medications reviewed. Current Medications Current Medications Medications (Trade) Dose Ordered Sig/Renan Route PRN Reason Start Time Stop Time Status Last Admin Acetaminophen (Tylenol Tablet) 325 mg Q4HP PRN PO MILD PAIN (1-3 PAIN SCALE) 03/25/24 16:00 Enoxaparin Sodium (Lovenox) 30 mg DAILY SC 03/26/24 10:00 03/25/24 16:52 DC Ceftriaxone Sodium 50 ml @ 100 mls/hr DAILY@09 IV 03/26/24 09:00 03/25/24 21:11 DC Azithromycin 250 ml @ 125 mls/hr DAILY IV 03/26/24 10:00 03/25/24 21:11 DC Prednisone 30 mg DAILY PO 03/26/24 10:00 Ipratropium [place] (Atrovent Medneb) 0.5 mg Q6HWA NEB 03/25/24 18:00 03/26/24 05:59 Albuterol (Ventolin Medneb) 2.5 mg Q6HWA NEB 03/25/24 18:00 03/25/24 18:41 DC 03/25/24 18:02 Levothyroxine Sodium (Synthroid Tablet) 25 mcg QAM@0600 PO 03/26/24 06:00 03/26/24 06:08 Enoxaparin Sodium (Lovenox) 40 mg DAILY SC 03/26/24 10:00 Albuterol (Ventolin Medneb) 2.5 mg Q2HPRN NEB 03/25/24 18:45 03/26/24 05:59 Vancomycin HCl 0 ml @ 0 mls/hr UD IV 03/25/24 21:15 Cefepime HCl 50 ml @ 12.5 mls/hr DAILY IV 03/26/24 10:00 Acetaminophen (Tylenol Tablet) 650 mg PRN PRN PO PAIN SCALE 1-3 OR TEMP>100.4 03/25/24 21:30 03/25/24 23:21 Digoxin (Lanoxin Tablet) 0.125 mg DAILY PO 03/26/24 10:00 Vancomycin HCl 250 ml @ 250 mls/hr Q1H IV 03/25/24 22:15 03/26/24 00:14 DC 03/26/24 04:30 Review of Systems Constitutional: Generalized weakness, decreased appetite Ears, Nose, & Throat: No symptom reported Eyes: No symptom reported Neurological: No symptoms reported Pulmonary/Respiratory: Shortness of breath Cardiovascular: No symptom reported Gastrointestinal: No symptom reported Genitourinary: No symptom reported Musculoskeletal: No symptom reported Skin: No symptom reported Psychiatric: No symptom reported Endocrine: No symptom reported Hematologic/Lymphatic: No symptom reported Vital Signs Vital Signs Date Time Temp Pulse Resp B/P (MAP) Pulse Ox O2 Delivery O2 Flow Rate FiO2 03/26/24 07:00 98 22 93/58 (70) 94 03/26/24 05:59 Mask 7.0 03/26/24 05:59 60 03/26/24 01:00 97.6 97.6 Physical Exam General Appearance: Cooperative. Obese Pulmonary/Respiratory: Coarse throughout Cardiovascular/Chest: Irregular rate and rhythm. Peripheral Pulses: 2+ Radial (R). 2+ Radial (L). 2+ Pedal (R). 2+ Pedal (L) Abdominal Exam: Normal bowel sounds. Ankle Exam: Negative ankle edema Lower extremities: Negative lower extremity edema Neuro/Mental Status: A/OX4, coherent. Thoughts/Psych: Normal thought pattern. Appropriate mood and affect. Good judgment and insight. Appearance: No acute distress. Skin Exam: Normal inspection. Normal color. Warm and dry. Labs/Diagnostic Data Labs Test 03/26/24 05:15 03/25/24 22:40 03/25/24 17:06 03/25/24 13:12 Range/Units White Blood Count 14.4 H 4.4-10.8 10^3/uL Red Blood Count 3.55 L 4.5-5.90 10^6/uL Hemoglobin 11.4 L 13.5-17.5 g/dL Hematocrit 34.2 L 41.0-53.0 % Mean Corpuscular Volume 96.6 80.0-100.0 fL Mean Corpuscular Hemoglobin 32.2 H 28.0-32.0 pg Mean Corpuscular Hemoglobin Concent 33.3 32.0-36.0 g/dL Red Cell Distribution Width 15.4 H 11.8-14.3 % Platelet Count 270 140-450 10^3/uL Mean Platelet Volume 8.5 6.9-10.8 fL Neutrophils (%) (Auto) 93.5 H 37.0-80.0 % Lymphocytes (%) (Auto) 4.1 L 10.0-50.0 % Monocytes (%) (Auto) 2.3 0.0-12.0 % Eosinophils (%) (Auto) 0.0 0.0-7.0 % Basophils (%) (Auto) 0.1 0.0-2.0 % Neutrophils # (Auto) 13.4 H 1.6-8.6 10 ^3/uL Lymphocytes # (Auto) 0.6 0.4-5.4 10 ^3/uL Monocytes # (Auto) 0.3 0-1.3 10 ^3/uL Eosinophils # (Auto) 0 0-0.8 10 ^3/uL Basophils # (Auto) 0 0-0.2 10 ^3/uL Nucleated Red Blood Cells 0.1 % Sodium Level 139 136-145 mmol/L Potassium Level 4.5 3.5-5.1 mmol/L Chloride Level 109 H 98-107 mmol/L Carbon Dioxide Level 20 20-31 mmol/L Anion Gap 10 5-15 Blood Urea Nitrogen 18 9-23 mg/dL Creatinine 1.21 0.700-1.30 mg/dL Glomerular Filtration Rate Calc 58 >90 mL/min BUN/Creatinine Ratio 14.9 10.0-20.0 Serum Glucose 129 H 74-106 mg/dL Calcium Level 8.3 L 8.7-10.4 mg/dL Total Bilirubin 0.4 0.2-1.0 mg/dL Aspartate Amino Transferase (AST) 420 H 13-40 U/L Alanine Aminotransferase (ALT) 324 H 7-40 U/L Alkaline Phosphatase 109 46-116 U/L Total Protein 5.8 5.7-8.2 g/dL Albumin 3.2 3.2-4.8 g/dL Urine Color Yellow Yellow Urine Clarity Clear Clear Urine pH 5.5 5.0-9.0 Urine Specific [place] 1.022 1.001-1.035 Urine Protein Trace H Negative Urine Ketones Negative Negative Urine Blood Trace H Negative /uL Urine Nitrite Negative Negative Urine Bilirubin Negative Negative Urine Urobilinogen Normal Negative mg/dL Urine Leukocyte Esterase 2+ Negative /uL Urine RBC 1 0 - 3 /hpf Urine WBC 2 0 - 3 /hpf Urine Squamous Epithelial Cells Few <5 /hpf Urine Bacteria None seen None Seen /hpf Urine Mucus Few None Seen Urine Osmolality 458 mOsm/kg Urine Sodium 92 40-220 mmol/L Urine Glucose Normal Normal mg/dL Prothrombin Time 14.0 H 9.3-11.8 sec Prothrombin Time INR 1.35 H 0.9-1.15 Troponin I High Sensitivity 6 </=54 ng/L Thyroid Stimulating Hormone (TSH) 0.79 0.55-4.78 uIU/mL Test 03/25/24 11:56 03/25/24 10:43 Range/Units Influenza Type A Antigen Negative Negative Influenza Type B Antigen Negative Negative SARS-CoV-2 Antigen (Rapid) Negative NEGATIVE Lactic Acid Level 1.2 0.4-2.0 mmol/L Magnesium Level 2.0 1.6-2.6 mg/dL B-Type Natriuretic Peptide 288.25 0-100 pg/mL Assessment Atrial fibrillation with rapid ventricular response (on Eliquis) Severe coronary artery disease status post triple-vessel CABG Multiple PTCAs x3 POLY (on ASA) Hypertension Hyperlipidemia Rule out structural heart disease Pneumonia COPD Thyroid disease Transaminitis History of Wlihelm's palsy Hard of hearing Morbidly obese Plan/Recommendation We will continue with the following plan/recommendations (Dr. Romero): * Transthoracic echocardiogram to evaluate cardiac function * [id number] VASc score: 6 points, HAS-BLED score: 2 points * Therapeutic Lovenox while inpatient, transition back to Eliquis when appropriate * Beta-michelle for rate control if tolerated by BP * Avoid antiarrhythmic agent at this time given unknown duration of AFib * Single antiplatelet therapy and lipid-lowering agent * Monitor and replete electrolytes as needed, keep potassium greater than four and magnesium greater than two * Antibiotics per primary care team Seen and examined at bedside with . Thank you for allowing us to care for this patient. Please call with any questions or concerns. Critical care time spent: 42 minutes This medical document was created using an electronic medical record system with voice recognition software and computerized dictation system. Although this document has been carefully reviewed, there might still be some phonetic and typographical errors. Occasional wrong-word or ``sound-alike substitutions may have occurred due to the inherent limitations of voice recognition software. These areas are purely typographical due to imperfections of the software programs and do not reflect any compromise in the patient's medical care. Please read the chart carefully and recognize, using context, where these substitutions have occurred. Plan discussed with: Patient Date of Service: Mar 26, 2024 Billing Provider: LIBERTAD WHITMAN Cardiology Common Codes: [id number] INP/OBS CARE (High) Cardiology Consultation Codes: [id number] CONSULT <45MIN LIBERTAD WHITMAN Mar 26, 2024 09:41
[2024-03-26] MEDS ORDERED: ENOXAPARIN SOD 40 MG/0.4 ML SYRINGE SC SCH (10:00)
[2024-03-26] MEDS ORDERED: ENOXAPARIN SOD 30 MG/0.3 ML SYRINGE SC SCH (10:00)
[2024-03-26] MEDS ORDERED: AZITHROMYCIN 500MG/ 250ML 250 ML IV SCH (10:00)
[2024-03-26 10:33] LABS: Triglycerides 67 mg/dL (< 150)
[2024-03-26 10:34] LABS: LDL Cholesterol 22 mg/dL (< 100)
[2024-03-26 10:35] LABS: Cholesterol < 50.0 mg/dL (< 200)
[2024-03-26 10:58] LABS: HDL Cholesterol 15 mg/dL (40-59)
[2024-03-26] MEDS: CEFEPIME 2GM/50ML NS 50 ML IV SCH (11:06)
[2024-03-26] MEDS: predniSONE 20 MG TAB PO SCH (11:07)
[2024-03-26] MEDS: DIGOXIN 0.125 MG TAB PO SCH (11:07)
[2024-03-26] MEDS: METOPROLOL TARTRATE 25 MG TAB PO SCH (11:08)
[2024-03-26] MEDS: ENOXAPARIN SOD 40 MG/0.4 ML SYRINGE SC ONE (11:08)
[2024-03-26] MEDS: ASPirin 81 mg TAB PO SCH (11:09)
[2024-03-26] MEDS: ENOXAPARIN SOD 80 MG/0.8ML SYRINGE SC ONE (15:48)
--- NOTE | 2024-03-26 21:21 | DVHSR ---
APPROVED REPORT EXAM: Two-dimensional and M-mode echocardiogram with Doppler and color Doppler. Blood Pressure: 98/47 mmHg INDICATION chf RISK FACTORS Height: 5'2, Weight: 180 DIMENSIONS LVDd3.5 (3.8-5.7cm)LA (2D)3.7 (1.9-4.0cm)Aortic Root2.8 (2.0-3.7cm) LVDs2.6 (2.5-4.0cm)LA (MM) (1.9-4.0cm)Aortic Cusp Exc0.8 (1.5-2.0cm) EF (%) 50.0 (55-70%)Rt. Atrium2.9 (1.9-4.0cm)Asc. Aorta cm IVSd1.3 (0.7-1.1cm)RV (D) (1.8-2.4cm) PWd1.3 (0.7-1.1cm) Mitral Valve MitralMitral Stenosis E wave1.09m/sMV Mean GR.2mmHg A wave0.43m/sMV Peak GR.90mmHg E/A ratio2.52D MVAcm2 DECEL [id number] 1/2 [place] Aortic Valve Aortic ValveAortic Stenosis V11.19m/Tiera Mean GR.6mmHg V21.76m/Tiera Peak GR.12mmHg LVOT Diameter1.9 (1.8-2.4cm)Doppler AVA1.92cm2 Pulmonic Valve V21.13m/s Tricuspid Valve TR Velocity2.28m/s [id number] LEFT VENTRICLE The left ventricle is normal size. There is mild concentric left ventricular hypertrophy. The left ventricle is normal in function, LVEF is 55-60%. Grade 2 diastolic dysfunction. Grossly normal wall motion. RIGHT VENTRICLE The right ventricle is normal size. The right ventricular systolic function is normal. ATRIA The left atrial size is normal. The right atrium size is normal. MITRAL VALVE The mitral valve is grossly normal. Mitral regurgitation is trace. PULMONIC VALVE The pulmonic valve is not well visualized. TRICUSPID VALVE The tricuspid valve is not well visualized. There is trace tricuspid regurgitation. AORTIC VALVE The aortic valve is not well visualized. There is trace to mild aortic regurgitation. GREAT VESSELS The aortic root is normal size. PERICARDIAL EFFUSION No evidence of pericardial effusion. Conclusion The left ventricle is normal size. There is mild concentric left ventricular hypertrophy. The left ve ntricle is normal in function, LVEF is 55-60%. Grade 2 diastolic dysfunction. Grossly normal wall mot ion. The right ventricle is normal size. The right ventricular systolic function is normal. The left and right atrial size is normal. No significant valvular abnormalities. No evidence of pericardial effusion.
[2024-03-26] MEDS: ATORVASTATIN 20 MG TAB PO SCH (21:43)
--- NOTE | 2024-03-26 21:52 | DVHPNRES ---
Progress Note Date Seen: Mar 26, 2024 Resident Creating Document: SHRUTHI PAZ RESIDENT Medical Necessity Reason Pt with a Central, PICC or Fol: No Subjective Review of Systems Patient seen and examined at bedside. Currently on 4 L of oxygen through nasal cannula, Currently AFib with controlled rate on telemetry No new symptoms Objective vital signs Vital Sign Date Time Temp Pulse Resp B/P (MAP) Pulse Ox O2 Delivery O2 Flow Rate FiO2 03/26/24 18:20 85 20 99 03/26/24 18:10 Nasal Cannula* 4 36 03/26/24 17:38 03/26/24 17:00 97.4 97.4 medications Current Medications Medications Dose Ordered Sig/Renan Route Start Time Stop Time Status Last Admin Dose Admin Acetaminophen 325 mg Q4HP PRN PO 03/25/24 16:00 Prednisone 30 mg DAILY PO 03/26/24 10:00 03/26/24 11:07 30 MG Ipratropium [place] 0.5 mg Q6HWA NEB 03/25/24 18:00 03/26/24 18:10 0.5 MG Levothyroxine Sodium 25 mcg QAM@0600 PO 03/26/24 06:00 03/26/24 06:08 25 MCG Vancomycin HCl 0 ml @ 0 mls/hr UD IV 03/25/24 21:15 Cefepime HCl 50 ml @ 12.5 mls/hr DAILY IV 03/26/24 10:00 03/26/24 11:06 12.5 MLS/HR Metoprolol Tartrate 12.5 mg BID PO 03/26/24 10:00 03/26/24 11:08 12.5 MG Aspirin 81 mg DAILY PO 03/26/24 10:00 03/26/24 11:09 81 MG Atorvastatin Calcium 40 mg HS PO 03/26/24 22:00 Enoxaparin Sodium 80 mg Q12H SC 03/27/24 02:00 Albuterol 2.5 mg Q4HPRN PRN NEB 03/26/24 20:15 Examination Examination General Appearance: Alert, Oriented X3, Cooperative, No acute distress HEENT: EOMI Respiratory: Scattered crackles bilateral lungs Cardiovascular: Regular rate, Normal S1, Normal S2 Abdominal: Normal bowel sounds Extremities: No cyanosis, No edema, Normal pulses, No tenderness/swelling Skin: No rashes, No breakdown Neuro: Normal speech and tone laboratory and microbiology Laboratory Tests 03/26/24 05:15 Test 03/26/24 05:15 Range/Units Serum Glucose 129 H 74-106 mg/dL Microbiology Date/Time Source Procedure Growth Status 03/25/24 12:15 Blood Blood Culture - Preliminary NO GROWTH AFTER 24 HOURS OF INCUBATION. Resulted Labs and/or images reviewed: Labs reviewed by me, Image(s) reviewed by me Problem List/Assessment/Plan Problem List/Assessment/Plan Assessment #Acute hypoxic resp failure due to systolic/diastolic heart failure exacerbation, COPD exacerbation, multifocal pneumonia -currently on 4l o2 through nasal canula -neb with ipratropium and albuterol #Sepsis due to pneumonia -IV fluids -IV antibiotics -panculture #Right sided pleural effusion>>left -pulm consulted for thoracentesis #?COPD exacerbation -currently on 4l o2 through nasal canula -neb with ipratropium and albuterol -prednisone #Community acquired pneumonia, gram positive/negative -IV antibiotics -sputum culture -CT angiogram #Atrial fibrillation with rapid ventricular response (on Eliquis) -currently on therapeutic lovenox -Monitor CMP -Transthoracic echocardiogram to evaluate cardiac function [id number] VASc score: 6 points, HAS-BLED score: 2 points Beta-michelle for rate control if tolerated by BP Avoid antiarrhythmic agent at this time given unknown duration of AFib #Severe coronary artery disease status post triple-vessel CABG #Multiple PTCAs x3 POLY (on ASA) -continue aspirin and statin #Hypertension -currently low normal BP #Hyperlipidemia -continue statins #hypothyroidism continue home Meds #DVT prophylaxis -currently on therapeutic Lovenox Family at bedside updated about the patient condition Discussed goals of care for 20 minutes: Code status, FULL CODE Case discussion with Dr Loza Plan discussed with: Patient, Other (RN) My Orders My Orders Orders - SHRUTHI PAZ RESIDENT Procedure Category Date Status Time Transfer Orders XFER 03/26/24 Transmitted 10:56 *Consult CONS 03/26/24 Transmitted / 15:08 Cardiac DIET 03/26/24 Transmitted Diet-2gna,Lofat,Lochol Dinner Addendum Addendum Addendum I was physically present for the [place] portions of the service provided to patient by THE RESIDENT. I have reviewed the documentation, discussed the case with resident and agree with the resident's documentation except as noted. Also the patient's clinical case was discussed with the patient's nurse. This medical document was created using an electronic medical record system with computerized dictation system. Although this document has been carefully reviewed, there might still be some phonetic and typographical errors. These areas are purely typographical due to imperfections of the software programs, and do not reflect any compromise in the patient's medical care. Late signature. Date of Service: Mar 26, 2024 Billing Provider: GABRIEL LOZA MD Common Visit Codes: [id number] INP/OBS CARE(HIGH) Secondary Visit Codes: [id number] CARE PLAN 30 MINUTES (20 minutes) SHRUTHI PAZ RESIDENT Mar 26, 2024 21:52 GABRIEL LOZA MD Mar 27, 2024 19:34
--- NOTE | 2024-03-26 23:15 | DVH ---
CTA Chest with intravenous contrast INDICATION: RULE OUT PE Comparison Study: None available at time of dictation. TECHNIQUE: Multidetector spiral CTA of the chest was performed of the chest with intravenous contrast . PULMONARY ANGIOGRAPHY PROTOCOL was utilized using a bolus-tracking technique centered on the main p ulmonary artery. Axial, coronal and sagittal multiplanar and MIP reformats were performed. Radiation Dose : 1. Chest: CTDI volume is 25 mGy. Dose-length product is 1961 mGy*cm The dose indicators for CT are the volume Computed Tomography (CT) Dose Index (CTDIvol) and the Dose Length Product (DLP), and are measured in units of mGy and mGy-cm, respectively. These indicators are not patient dose, but values generated from the CT scanner acquisition factors. The report includes radiation exposure data for exposures received during this examination. Findings: Pulmonary artery: No evidence of pulmonary embolism seen to the segmental arteries. Lower neck: Within normal limits. Lungs: Large right-sided atelectasis. Heart/Vascular Structures: Mild calcification of the coronary vessels.. Lymph Nodes: No adenopathy Pleura: Large right-sided pleural effusion with adjacent compressive atelectasis.. Musculoskeletal: Within normal limits. Body wall: Within normal limits. Upper abdomen: Cholelithiasis. Subcentimeter left renal hypodensities. Limited evaluation of the abd ominal aorta however there appears to be potential infrarenal aneurysm. IMPRESSION: No pulmonary embolism. Limited evaluation of the abdominal aorta demonstrates potential aneurysm. Recommend further evaluat ion with CTA abdomen. Large right-sided pleural effusion with adjacent large atelectasis.
--- NOTE | 2024-03-26 23:50 | DVHINCON2 ---
Date of service: Mar 26, [address] Gomez Reason for Consultation Right pleural effusion, COPD History of Present Illness 80-year-old man history of CAD status post CABG, COPD, hypertension, hypothyroidism, obesity with a BMI of 31.7 , BPH, nicotine dependence who was brought into the emergency department due to productive cough and shortness of breath. Also complaint of hemoptysis. Patient was initiated on antibiotics for pneumonia. CT of the chest was ordered to rule out pulmonary embolism. Received bronchodilators and steroids. Pulmonary consultation is called for COPD and pleural effusion. Review of systems: 14 point review of systems is negative unless otherwise noted above. Past medical history: Atrial fibrillation, CAD, CHF, hypertension, COPD, GERD, Past surgical history: Total hip replacement Medications: Reviewed Allergies: No known drug allergies. Family history: No family history of premature CAD. No family history of lung disease Social history: Ex-smoker. No alcohol or illicit drug use. Lives with family. Family History: FH: myocardial infarction FATHER Family member MOTHER FATHER Glaucoma Allergies: Coded Allergies: NO KNOWN ALLERGIES (Unverified , 04/17/17) Home Meds Reported Medications Carbamazepine (Carbamazepine) 200 Mg Tab, 1 TAB PO BID 03/26/24 Bicalutamide (Bicalutamide) 50 Mg Tab, 1 TAB PO DAILY 03/26/24 Fluticasone Propionate (Nasal) (Fluticasone Propionate) 50 Mcg/Act Spr, 1 SPRAY NATALIA DAILY 03/26/24 Metoprolol Tartrate (Lopressor) 25 Mg Tb, 0.5 TAB PO DAILY 03/26/24 Terazosin Hcl (Terazosin Hcl) 2 Mg Cap, 1 CAP PO 03/26/24 Ketoconazole (Ketoconazole) 2 % Cre, 1 TOP DAILY 03/26/24 Losartan Potassium (Losartan Potassium) 25 Mg Tab, 1 TAB PO DAILY 03/26/24 Apixaban Base (ELIQUIS) 2.5 Mg Tab, 1 TAB PO BID 03/26/24 Brimonidine Tartrate (Brimonidine Tartrate) 0.2 % Delaney, 1 DROP LEFTEYE BID 03/26/24 Rosuvastatin Calcium (Rosuvastatin Calcium) 40 Mg Tab, 1 TAB PO 03/26/24 Ferrous Sulfate (Ferosul) 325 Mg Tab, 1 TAB PO 03/26/24 Levothyroxine Sodium (Levothyroxine Sodium) 75 Mcg Tab, 1 TAB PO DAILY 03/26/24 Budesonide (Inhalation) (Budesonide) 0.5 Mg/2 Ml Viviana, 0.5 MG IN BID 04/17/17 Nitroglycerin (NTROSTAT SUBLINGUAL) 0.4 Mg Sl, 0.4 MG SL PRN *MAY REPEAT EVERY 5 MINUTES X 3 TOTAL IF NO RELIEF, INITIATE ANALGESIC THERAPY. NOTIFY PHYSICIAN *Do not crush. 04/17/17 Latanoprost (LATANOPROST) 0.005 % Delaney, 1 DROP EACHEYE BID, #2.5 ML 3 Refills 04/17/17 Current Medications Current Medications Medications (Trade) Dose Ordered Sig/Renan Route PRN Reason Start Time Stop Time Status Last Admin Enoxaparin Sodium (Lovenox) 30 mg DAILY SC 03/26/24 10:00 03/25/24 16:52 DC Ceftriaxone Sodium 50 ml @ 100 mls/hr DAILY@09 IV 03/26/24 09:00 03/25/24 21:11 DC Azithromycin 250 ml @ 125 mls/hr DAILY IV 03/26/24 10:00 03/25/24 21:11 DC Prednisone 30 mg DAILY PO 03/26/24 10:00 03/26/24 21:37 DC 03/26/24 11:07 Levothyroxine Sodium (Synthroid Tablet) 25 mcg QAM@0600 PO 03/26/24 06:00 03/26/24 06:08 Enoxaparin Sodium (Lovenox) 40 mg DAILY SC 03/26/24 10:00 03/26/24 09:57 DC Cefepime HCl 50 ml @ 12.5 mls/hr DAILY IV 03/26/24 10:00 03/26/24 11:06 Digoxin (Lanoxin Tablet) 0.125 mg DAILY PO 03/26/24 10:00 03/26/24 15:23 DC 03/26/24 11:07 Enoxaparin Sodium (Lovenox) 40 mg DAILY SC 03/27/24 10:00 03/26/24 15:22 DC Metoprolol Tartrate (Lopressor Tablet) 12.5 mg BID PO 03/26/24 10:00 03/26/24 21:46 Aspirin 81 mg DAILY PO 03/26/24 10:00 03/26/24 11:09 Atorvastatin Calcium (Lipitor) 40 mg HS PO 03/26/24 22:00 03/26/24 21:43 Enoxaparin Sodium (Lovenox) 80 mg Q12H SC 03/27/24 02:00 Albuterol (Ventolin Medneb) 2.5 mg Q4HPRN PRN NEB SHORTNESS OF BREATH 03/26/24 20:15 Azithromycin 250 ml @ 125 mls/hr DAILY@2200 IV 03/27/24 22:00 Prednisone 40 mg DAILY PO 03/27/24 10:00 Vital Signs Vital Signs Date Time Temp Pulse Resp B/P (MAP) Pulse Ox O2 Delivery O2 Flow Rate FiO2 03/26/24 21:46 91 113/62 03/26/24 21:00 97.1 18 96 97.1 03/26/24 18:10 Nasal Cannula* 4 36 Physical Exam Gen.: Patient lying in bed in no apparent distress. On supplemental oxygen. Head: Normocephalic, atraumatic Eyes: EOMI/PERRLA. Ears: Normal hearing. Normal anatomy. Neck/trachea: Trachea midline, supple. Nose: Normal external anatomy. Mouth: Moist mucous membranes. Chest: Decreased air entry bilaterally. No wheezing or rhonchi. Dullness to percussion in right lower lung marsh. Cardio vascular: Positive S1, positive S2. Regular rate and rhythm. Abdomen: Positive bowel sounds in all 4 quadrants. Soft, non-tender, non- distended. : Deferred. Rectal: Deferred Skin: Warm, dry. Extremities: 2+ radial pulses bilaterally. No lower extremity edema. Neuro: Awake, alert, oriented x3. No gross motor or sensory deficits. Cranial nerves II through XII intact. Gait not assessed. Labs/Diagnostic Data Labs Test 03/26/24 05:15 03/25/24 22:40 03/25/24 17:06 03/25/24 13:12 Range/Units White Blood Count 14.4 H 4.4-10.8 10^3/uL Red Blood Count 3.55 L 4.5-5.90 10^6/uL Hemoglobin 11.4 L 13.5-17.5 g/dL Hematocrit 34.2 L 41.0-53.0 % Mean Corpuscular Volume 96.6 80.0-100.0 fL Mean Corpuscular Hemoglobin 32.2 H 28.0-32.0 pg Mean Corpuscular Hemoglobin Concent 33.3 32.0-36.0 g/dL Red Cell Distribution Width 15.4 H 11.8-14.3 % Platelet Count 270 140-450 10^3/uL Mean Platelet Volume 8.5 6.9-10.8 fL Neutrophils (%) (Auto) 93.5 H 37.0-80.0 % Lymphocytes (%) (Auto) 4.1 L 10.0-50.0 % Monocytes (%) (Auto) 2.3 0.0-12.0 % Eosinophils (%) (Auto) 0.0 0.0-7.0 % Basophils (%) (Auto) 0.1 0.0-2.0 % Neutrophils # (Auto) 13.4 H 1.6-8.6 10 ^3/uL Lymphocytes # (Auto) 0.6 0.4-5.4 10 ^3/uL Monocytes # (Auto) 0.3 0-1.3 10 ^3/uL Eosinophils # (Auto) 0 0-0.8 10 ^3/uL Basophils # (Auto) 0 0-0.2 10 ^3/uL Nucleated Red Blood Cells 0.1 % Sodium Level 139 136-145 mmol/L Potassium Level 4.5 3.5-5.1 mmol/L Chloride Level 109 H 98-107 mmol/L Carbon Dioxide Level 20 20-31 mmol/L Anion Gap 10 5-15 Blood Urea Nitrogen 18 9-23 mg/dL Creatinine 1.21 0.700-1.30 mg/dL Glomerular Filtration Rate Calc 58 >90 mL/min BUN/Creatinine Ratio 14.9 10.0-20.0 Serum Glucose 129 H 74-106 mg/dL Hemoglobin A1c 5.7 <5.7 % A1C Calcium Level 8.3 L 8.7-10.4 mg/dL Total Bilirubin 0.4 0.2-1.0 mg/dL Aspartate Amino Transferase (AST) 420 H 13-40 U/L Alanine Aminotransferase (ALT) 324 H 7-40 U/L Alkaline Phosphatase 109 46-116 U/L Total Protein 5.8 5.7-8.2 g/dL Albumin 3.2 3.2-4.8 g/dL Triglycerides Level 67 < 150 mg/dL Cholesterol Level < 50.0 < 200 mg/dL LDL Cholesterol 22 < 100 mg/dL HDL Cholesterol 15 L 40-59 mg/dL Urine Color Yellow Yellow Urine Clarity Clear Clear Urine pH 5.5 5.0-9.0 Urine Specific [place] 1.022 1.001-1.035 Urine Protein Trace H Negative Urine Ketones Negative Negative Urine Blood Trace H Negative /uL Urine Nitrite Negative Negative Urine Bilirubin Negative Negative Urine Urobilinogen Normal Negative mg/dL Urine Leukocyte Esterase 2+ Negative /uL Urine RBC 1 0 - 3 /hpf Urine WBC 2 0 - 3 /hpf Urine Squamous Epithelial Cells Few <5 /hpf Urine Bacteria None seen None Seen /hpf Urine Mucus Few None Seen Urine Osmolality 458 mOsm/kg Urine Sodium 92 40-220 mmol/L Urine Glucose Normal Normal mg/dL Prothrombin Time 14.0 H 9.3-11.8 sec Prothrombin Time INR 1.35 H 0.9-1.15 Troponin I High Sensitivity 6 </=54 ng/L Thyroid Stimulating Hormone (TSH) 0.79 0.55-4.78 uIU/mL Test 03/25/24 11:56 03/25/24 10:43 Range/Units Influenza Type A Antigen Negative Negative Influenza Type B Antigen Negative Negative SARS-CoV-2 Antigen (Rapid) Negative NEGATIVE Lactic Acid Level 1.2 0.4-2.0 mmol/L Magnesium Level 2.0 1.6-2.6 mg/dL B-Type Natriuretic Peptide 288.25 0-100 pg/mL Microbiology Date/Time Source Procedure Growth Status 03/25/24 12:15 Blood Blood Culture - Preliminary NO GROWTH AFTER 24 HOURS OF INCUBATION. Resulted Assessment Impression: Acute hypoxic respiratory failure Systolic last diastolic heart failure exacerbation Acute exacerbation of COPD Multifocal pneumonia Pulmonary embolism Acute on chronic kidney injury Atrial fibrillation with RVR Obesity with a BMI of 31.7 Plan: Supplemental oxygen Keep O2 saturation above 92%. Continue antibiotics Follow up cultures Continue bronchodilators Follow up CTA of the chest. Diuresis euvolemia. Monitor ins and outs. Monitor renal function. Monitor electrolytes. Supplement as necessary. Follow up Cardiology recommendations. Plan for limited chest US to evaluate if pleural effusion amenable for thoracentesis. Obtain consent for right thoracentesis. DVT prophylaxis Prognosis: Poor given multiple comorbidities. Rest of plan per hospitalist and other consultants. Thank you Dr. Valdes for allowing me to participate in this patient's care. Further recommendations will depend on patient's clinical course. Please do not hesitate to contact me if you have any questions or concerns. This medical document was created using an electronic medical record system with Final[employer] dictation system. Although this document has been carefully reviewed, there may still be some phonetic and typographical errors. These areas are purely typographical due to imperfections of the software programs, and do not reflect any compromise in the patient's medical care. Plan discussed with: Patient, Other (RN, MD) ANGELA THURSTON MD Mar 26, 2024 23:50
[2024-03-27] VITALS (15 sets, daily range): BP systolic 105–129; BP diastolic 55–72; PULSE 69–91; RESP 17–20; TEMP 97–98.3; O2SAT 90–97
[2024-03-27] MEDS: ENOXAPARIN SOD 80 MG/0.8ML SYRINGE SC SCH (02:00)
[2024-03-27] MEDS: AZITHROMYCIN 500MG/ 250ML 250 ML IV ONE (04:14)
--- NOTE | 2024-03-27 06:09 | DVH ---
CHEST RADIOGRAPH Indication: shortness of breath Technique: Single frontal view of the chest was obtained Comparison: XY CHEST PORTABLE on DOS: 03/25/24 IMPRESSION: The heart is prominent size with median sternotomy wires. Left lung appears relatively clear. Airspa ce opacity in the right lower lung has increased in density with possible small right pleural effusio n.
[2024-03-27 06:54] LABS: Basophils # (auto) 0 10 ^3/uL (0-0.2); Basophils % (auto) 0.2 % (0.0-2.0); Eosinophils # (auto) 0 10 ^3/uL (0-0.8); Hematocrit 34.9 % (41.0-53.0); Hemoglobin 11.9 g/dL (13.5-17.5); Lymphocytes # (auto) 0.9 10 ^3/uL (0.4-5.4); Lymphocytes % (auto) 5.7 % (10.0-50.0); Mean Corpuscular Hemoglobin 32.2 pg (28.0-32.0); Mean Corpuscular Hgb Conc. 34.2 g/dL (32.0-36.0); Mean Corpuscular Volume 94.3 fL (80.0-100.0); Monocytes # (auto) 0.5 10 ^3/uL (0-1.3); Monocytes % (auto) 3.2 % (0.0-12.0); Neutrophils # (auto) 13.8 10 ^3/uL (1.6-8.6); Neutrophils % (auto) 90.9 % (37.0-80.0); Platelet Count (auto) 348 10^3/uL (140-450); Red Cell Distribution Width 15.4 % (11.8-14.3); White Blood Cell 15.1 10^3/uL (4.4-10.8)
[2024-03-27 07:34] LABS: Alkaline Phosphatase 107 U/L (46-116); Anion Gap 7 (5-15); BUN/Creatinine Ratio 23.1 (10.0-20.0); Carbon Dioxide 25 mmol/L (20-31); Magnesium 2.5 mg/dL (1.6-2.6); Potassium 4.2 mmol/L (3.5-5.1); Sodium 140 mmol/L (136-145)
[2024-03-27 07:36] LABS: Alanine Aminotransferase 263 U/L (7-40); Albumin 3.1 g/dL (3.2-4.8); Aspartate Aminotransferase 275 U/L (13-40); Bilirubin, Total 0.4 mg/dL (0.2-1.0); Blood Urea Nitrogen 31 mg/dL (9-23); Calcium 8.6 mg/dL (8.7-10.4); Chloride 108 mmol/L (98-107); Glucose 169 mg/dL (74-106); Total Protein 5.7 g/dL (5.7-8.2)
[2024-03-27] MEDS ORDERED: ENOXAPARIN SOD 40 MG/0.4 ML SYRINGE SC SCH (10:00)
[2024-03-27] MEDS: predniSONE 20 MG TAB PO SCH (10:21)
--- NOTE | 2024-03-27 13:06 | DVH ---
EXAM: US BILAT LOW EXT ART DUPLEX HISTORY: dec pedal pulses COMPARISON: None TECHNIQUE: Real-time grayscale and color Doppler images of the bilateral lower extremities were obta ined with spectral waveform analysis. Findings: Arterial peak systolic velocities reported in units of centimeters per second (cm/sec): Right side: Common femoral - 97.2 Profunda femoris - 56.3 Proximal SFA - 50.1 Mid SFA - 56.1 Distal SFA - 57.0 Popliteal - 26.1 Posterior tibial - 40.6 Dorsalis pedis - 36.5 Triphasic waveforms except fot the posterior tibial and dorsalis pedis arteries which are monophasic. Left side: Common femoral - 176.8 Profunda femoris - 47.2 Proximal SFA - 77.6 Mid SFA - 43.5 Distal SFA - 74.6 Popliteal - 48.2 Posterior tibial - 91.1 Dorsalis pedis - 55.6 Triphasic waveforms except fot the posterior tibial and dorsalis pedis arteries which are monophasic. IMPRESSION: No evidence of hemodynamically significant stenosis throughout the bilateral lower extremity arterial systems.
[2024-03-27] MEDS ORDERED: IOHEXOL 350 MG/ML 100ML IJ ONE (13:16)
--- NOTE | 2024-03-27 14:08 | DVHPNRES ---
Progress Note Date Seen: Mar 27, 2024 Resident Creating Document: PAUL SHARIF RESIDENT Medical Necessity Reason Pt with a Central, PICC or Fol: No Subjective Review of Systems 88-year-old male patient with past medical history of coronary artery disease status post CABG, COPD, hypertension, hypothyroidism, obesity, atrial fibrillation, BPH, nicotine dependency 40 years ago,, who was brought to the emergency department with a chief complaint of productive cough (bright red blood streaks) and shortness of breaths . The patient reports these symptoms have been going on for awhile, he reports he has to sleep on a 45 degree position to avoid the shortness of breath, and he gets tired easily when he walk in his house, he also mentioned bilateral lower extremities swelling episodes happen frequently. (Per daughter) he was treated on [facility] recently, medical records from that facility were ordered. Patient was examined at bedside, he is still complaining of productive cough and shortness of breaths. On admission vital signs showed elevated temperature, heart rate, low blood pressure and increased white blood cell counts with a possible source of infection being the lungs as recent chest x-rays showed Multifocal left lung opacities and Small left pleural effusion. Laboratory showed transaminitis,(per paramedics) patient had a episode of atrial fibrillation with RVR on the way to the hospital. Recent creatinine levels slightly elevated with a GFR of 51. Patient was started on empiric antibiotic for community-acquired pneumonia, CT angiogram chest was ordered to rule out pulmonary embolism, patient was started on med neb and prednisone and medical records were requested from [facility] facility. Patient seen and examined at bedside today: AO x4. Notes dyspnea and shortness of breaths. Scheduled to undergo thoracentesis of the large right pleural effusion today on 03/27/2024. Echocardiogram shows mild concentric left ventricular hypertrophy, LVEF 55-60%. Grade 2 diastolic dysfunction. Objective vital signs Vital Sign Date Time Temp Pulse Resp B/P (MAP) Pulse Ox O2 Delivery O2 Flow Rate FiO2 03/27/24 13:23 84 20 03/27/24 13:22 94 03/27/24 13:00 97.4 113/55 (74) 97.4 03/27/24 08:20 Nasal Cannula* 4 36 Total Intake and Output 03/26/24 03/26/24 03/27/24 15:00 23:00 07:00 Intake Total 50 ml 0 ml 200 ml Output Total 0 ml Balance 50 ml 0 ml 200 ml medications Current Medications Medications Dose Ordered Sig/Renan Route Start Time Stop Time Status Last Admin Dose Admin Acetaminophen 325 mg Q4HP PRN PO 03/25/24 16:00 Ipratropium [place] 0.5 mg Q6HWA NEB 03/25/24 18:00 03/27/24 13:21 0.5 MG Levothyroxine Sodium 25 mcg QAM@0600 PO 03/26/24 06:00 03/27/24 05:12 25 MCG Vancomycin HCl 0 ml @ 0 mls/hr UD IV 03/25/24 21:15 Cefepime HCl 50 ml @ 12.5 mls/hr DAILY IV 03/26/24 10:00 03/27/24 10:17 12.5 MLS/HR Metoprolol Tartrate 12.5 mg BID PO 03/26/24 10:00 03/27/24 10:33 12.5 MG Aspirin 81 mg DAILY PO 03/26/24 10:00 03/27/24 10:22 81 MG Atorvastatin Calcium 40 mg HS PO 03/26/24 22:00 03/26/24 21:43 40 MG Enoxaparin Sodium 80 mg Q12H SC 03/27/24 02:00 Albuterol 2.5 mg Q4HPRN PRN NEB 03/26/24 20:15 Azithromycin 250 ml @ 125 mls/hr DAILY@2200 IV 03/27/24 22:00 Prednisone 40 mg DAILY PO 03/27/24 10:00 03/27/24 10:21 40 MG Examination General Appearance: Cooperative. Well developed. Well nourished. NAD Head Exam: Normal inspection Neck Exam: Normal inspection. Non-tender. Normal alignment Pulmonary/Respiratory: Chest non-tender. bilateral breath sounds, no crackles, wheezing. Cardiovascular/Chest: Regular rate and rhythm. No murmurs. No JVD. Peripheral Pulses: 2+ Radial (R). 2+ Radial (L). 1+ Pedal (R). 1+ Pedal (L) Abdominal Exam: Normal bowel sounds. Distended but soft abdomen, no visible veins, Nontender. No hepatospenomegaly. No masses Ankle Exam: Negative ankle edema Lower extremities: Negative lower extremity edema Neuro/Mental Status: A&O x4. Coherent. Thoughts/Psych: Normal thought pattern. Appropriate mood and affect. Good judgement and insight Skin Exam: Normal inspection. Normal color. Warm. Dry laboratory and microbiology Laboratory Tests 03/27/24 06:34 Test 03/27/24 06:34 Range/Units Serum Glucose 169 H 74-106 mg/dL Microbiology Date/Time Source Procedure Growth Status 03/25/24 12:15 Blood Blood Culture - Preliminary NO GROWTH AFTER 48 HOURS OF INCUBATION. Resulted Labs and/or images reviewed: Labs reviewed by me, Image(s) reviewed by me Problem List/Assessment/Plan Problem List/Assessment/Plan #Acute hypoxic resp failure due to systolic/diastolic heart failure exacerbation, COPD exacerbation, multifocal pneumonia -currently on 4l o2 through nasal canula -neb with ipratropium and albuterol #Sepsis due to pneumonia -IV fluids -IV antibiotics -panculture #Right sided pleural effusion>>left -pulm consulted for thoracentesis - scheduled to undergo thoracentesis today on 03/27/2024 #?COPD exacerbation -currently on 4l o2 through nasal canula -neb with ipratropium and albuterol -prednisone #Community acquired pneumonia, gram positive/negative -IV antibiotics -sputum culture -CT angiogram: No pulmonary embolism. 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 Recommend further evaluation with CT abdomen. Large right-sided pleural effusion with adjacent large atelectasis. - ordered CT angiography abdomen #Atrial fibrillation with rapid ventricular response (on Eliquis) -currently on therapeutic Lovenox -Monitor CMP -Transthoracic echocardiogram to evaluate cardiac function [id number] VASc score: 6 points, HAS-BLED score: 2 points Beta-michelle for rate control if tolerated by BP Avoid antiarrhythmic agent at this time given unknown duration of AFib HENOK, likely hemodynamically mediated/VMN - monitor #Severe coronary artery disease status post triple-vessel CABG #Multiple PTCAs x3 POLY (on ASA) -continue aspirin and statin #Hypertension -currently low normal BP #Hyperlipidemia -continue statins #hypothyroidism continue home Meds #DVT prophylaxis -currently on therapeutic Lovenox Family at bedside updated about the patient condition Case discussion with Dr Loza Plan discussed with: Patient, Other (RN) My Orders My Orders Orders - PAUL SHARIF RESIDENT Procedure Category Date Status Time Bilat Low Ext Art US 03/27/24 Resulted Duplex 11:[address] 03/27/24 Logged 11:35 Addendum Addendum Addendum I was physically present for the al[place] portions of the service provided to patient by THE RESIDENT. I have reviewed the documentation, discussed the case with resident and agree with the resident's documentation except as noted. Also the patient's clinical case was discussed with the patient's nurse. This medical document was created using an electronic medical record system with computerized dictation system. Although this document has been carefully reviewed, there might still be some phonetic and typographical errors. These areas are purely typographical due to imperfections of the software programs, and do not reflect any compromise in the patient's medical care. Late signature. Date of Service: Mar 27, 2024 Billing Provider: GABRIEL LOZA MD Common Visit Codes: [id number] INP/OBS CARE(HIGH) PAUL SHARIF RESIDENT Mar 27, 2024 14:07 GABRIEL LOZA MD Mar 27, 2024 19:37
--- NOTE | 2024-03-27 14:39 | DVHPN2 ---
Consult Progress Note Date Seen: Mar 27, 2024 Subjective Review of Systems: CVS:Normal, RESPIRATORY:Abnormal Other Systems: C/o mild SOB Objective vital signs Vital Sign Date Time Temp Pulse Resp B/P (MAP) Pulse Ox O2 Delivery O2 Flow Rate FiO2 03/27/24 13:23 84 20 03/27/24 13:22 94 03/27/24 13:00 97.4 113/55 (74) 97.4 03/27/24 08:20 Nasal Cannula* 4 36 Total Intake and Output 03/26/24 03/26/24 03/27/24 15:00 23:00 07:00 Intake Total 50 ml 0 ml 200 ml Output Total 0 ml Balance 50 ml 0 ml 200 ml medications Current Medications Medications Dose Ordered Sig/Renan Route Start Time Stop Time Status Last Admin Dose Admin Acetaminophen 325 mg Q4HP PRN PO 03/25/24 16:00 Ipratropium [place] 0.5 mg Q6HWA NEB 03/25/24 18:00 03/27/24 13:21 0.5 MG Levothyroxine Sodium 25 mcg QAM@0600 PO 03/26/24 06:00 03/27/24 05:12 25 MCG Vancomycin HCl 0 ml @ 0 mls/hr UD IV 03/25/24 21:15 Cefepime HCl 50 ml @ 12.5 mls/hr DAILY IV 03/26/24 10:00 03/27/24 10:17 12.5 MLS/HR Metoprolol Tartrate 12.5 mg BID PO 03/26/24 10:00 03/27/24 10:33 12.5 MG Aspirin 81 mg DAILY PO 03/26/24 10:00 03/27/24 10:22 81 MG Atorvastatin Calcium 40 mg HS PO 03/26/24 22:00 03/26/24 21:43 40 MG Enoxaparin Sodium 80 mg Q12H SC 03/27/24 02:00 Albuterol 2.5 mg Q4HPRN PRN NEB 03/26/24 20:15 Azithromycin 250 ml @ 125 mls/hr DAILY@2200 IV 03/27/24 22:00 Prednisone 40 mg DAILY PO 03/27/24 10:00 03/27/24 10:21 40 MG Examination: LUNGS:Abnormal (O2 via NC, diminished bilaterally), CVS:Normal (A- fib controlled rate), NEURO:Normal laboratory and microbiology Laboratory Tests 03/27/24 06:34 Test 03/27/24 06:34 Range/Units Serum Glucose 169 H 74-106 mg/dL Problem List/Assessment/Plan Problem List/Assessment/Plan Sepsis with multifocal PNA Atrial fibrillation with rapid ventricular response (on Eliquis), now controlled rate Severe coronary artery disease status post triple-vessel CABG & multiple PTCAs x3 POLY (on ASA) Chronic compensated HFpEF 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 Pickard) * Transthoracic echocardiogram revealed EF 55-60% with grade II diastolic dysfunction * Rate control, metoprolol BID. Up-titrate as tolerated * Therapeutic Lovenox while inpatient, transition back to Eliquis when appropriate * [id number] VASc score: 6 points, HAS-BLED score: 2 points * Avoid antiarrhythmic agent at this time given unknown duration of AFib * Single-antiplatelet therapy and lipid-lowering agent * Monitor and replete electrolytes as needed, K>4 and Mg>2 * Outpatient infrarenal AAA surveillance * Antibiotics per primary care team Seen and examined at bedside with . There is no further cardiac workup indicated at this time. Kindly call if in need to re-consult. Thank you for allowing us to care for this patient. This medical document was created using an electronic medical record system with voice recognition software and computerized dictation system. Although this document has been carefully reviewed, there might still be some phonetic and typographical errors. Occasional wrong-word or ``sound-alike substitutions may have occurred due to the inherent limitations of voice recognition software. These areas are purely typographical due to imperfections of the software programs and do not reflect any compromise in the patient's medical care. Please read the chart carefully and recognize, using context, where these substitutions have occurred. Plan discussed with: Patient, Spouse, Other Date of Service: Mar 27, 2024 Billing Provider: ANDRY PICKARD MD Cardiology Common Codes: [id number] HOSP CARE(PINO Langston [facility] Mar 27, 2024 14:39
--- NOTE | 2024-03-27 14:53 | DVH ---
Exam: CT ANGIO AORTIC ABDOMINAL History: possible abdominal aortic aneurysm Comparison Study: None available TECHNIQUE: A digital it sales executive image was obtained. During the uneventful, intravenous administration of c ontrast material, multislice data acquisition was obtained through the abdomen and pelvis. The data s et was subsequently reconstructed into axial images. Images reviewed on a wrist examination is an exa mination of axial and multiplanar reformations using a variety of window levels and settings. 3D MIP images are available for review. RADIATION DOSE: DLP 764.95 mGy.cm; CTDI vol 17.14 mGy. Findings: Lungs: Moderate right pleural effusion with near complete atelectasis of the right lower lobe. Trace left pleural effusion. Heart: No pericardial effusion. Cardiomegaly. Liver: Unremarkable. Gallbladder: Unremarkable. Spleen: Unremarkable Pancreas: Unremarkable Adrenals: Unremarkable Kidneys: Unremarkable GI tract: Diverticulosis without evidence of acute diverticulitis. : Unremarkable. Vasculature: Moderate aortoiliac atherosclerosis. No abdominal aortic aneurysm. Ectatic infrarenal ab dominal aorta measuring 2.9 cm in diameter. Lymphadenopathy: Absent Peritoneum: No ascites Musculoskeletal: Mild multilevel degenerative changes of the thoracolumbar spine. Bilateral total hip arthroplasties. Soft tissues: Unremarkable Impression: 1. No acute abdominopelvic abnormalities. 2. No abdominal aortic aneurysm. 3. Ectatic infrarenal abdominal aorta measuring 2.9 cm in diameter. 4. Diverticulosis without evidence of acute diverticulitis. 5. Moderate right pleural effusion with near complete atelectasis of the right lower lobe. 6. Trace left pleural effusion.
--- NOTE | 2024-03-27 18:41 | DVHNC2 ---
Procedure - Ultrasound-guided right thoracentesis procedure note: Physician: Dr Cuate Mckeon Time out time: 1824 Patient medications and allergies reviewed. The risks and benefits of the procedure and the sedation options and risk were discussed with the patient's healthcare proxy. All questions were answered and informed consent was obtained. Patient identification and proposed procedure were verified prior to the procedure by the physician, and a nurse in the patient's room. The heart rate, respiratory rate, oxygen saturations, blood pressure, adequacy of pulmonary ventilation, and response to care were monitored throughout the procedure. The physical status of the patient was reassessed after the procedure. Date: Consent: Consent was obtained from patient's healthcare proxy prior to procedure. Indication, risks, and benefits were explained at length. Procedure summary: A time out was performed and a chest x-ray was reviewed prior to procedure. The appropriate site was confirmed and marked. My hands were washed immediately prior to the procedure, I wore a surgical cap, mask with protective eyewear, sterile gown and sterile gloves throughout the procedure. The patient was prepped and draped in a sterile manner using chlorhexidine scrub after the appropriate level was percussed and confirmed by ultrasound. 1% lidocaine was used to anesthetize the skin, subcutaneous tissue, superior aspect of the rib periosteum and parietal pleura. A finder needle was then introduced over the superior aspect of the rib to locate the pleural fluid; nohelia fluid was aspirated. 5 [place] Thoracentesis needle was then introduced through the skin incision into the pleural space using negative aspiration pressure. The thoracentesis catheter was then threaded without difficulty. 1000 mL's of colored fluid were removed without difficulty. The catheter was then removed. No immediate complications were noted during the procedure. A postprocedure chest x-ray is pending at the time of this note. The pleural fluid will be sent for cultures and cytology. Estimated blood loss is less than 5 mL's. CPT: 21307 ANGELA MCKEON MD Mar 27, 2024 18:40
--- NOTE | 2024-03-27 19:05 | DVH ---
EXAM: XY CHEST XRAY 1 VIEW TECHNIQUE: Single frontal chest radiograph CLINICAL HISTORY: s/p right thoracentesis r/o pneumothorax COMPARISON: XY CHEST PORTABLE on DOS: 03/27/24, XY CHEST PORTABLE on DOS: 03/25/24 Findings/Impression: Frontal chest radiograph demonstrates no acute osseous or superficial soft tissue abnormalities. The trachea is midline. Cardiomegaly. Bibasilar atelectasis and small right pleural effusion. No definite pneumothorax.
[2024-03-27] MEDS: VANCOMYCIN 750MG VIAL 750 MG in D5W 5% 100 ML IV ONE (19:32)
[2024-03-27] MEDS: AZITHROMYCIN 500MG/ 250ML 250 ML IV SCH (21:45)
[2024-03-27 21:51] LABS: Body Fluid Polymorphonuclear 20 % (0-25); Body Fluid Red Blood Cells 2502 CUMM (0-2000); Body Fluid White Blood Cells 647 CUMM (0-200)
--- NOTE | 2024-03-27 23:33 | DVHPN2 ---
Progress Note - Dictate Date Seen: Mar 27, 2024 Medical Necessity Reason Pt with a Central, PICC or Fol: No Subjective Patient seen and examined at bedside. Remains on supplemental oxygen Overnight events reviewed. vital signs Vital Sign Date Time Temp Pulse Resp B/P (MAP) Pulse Ox O2 Delivery O2 Flow Rate FiO2 03/27/24 21:44 91 129/64 03/27/24 21:00 98.3 18 92 98.3 03/27/24 17:40 Nasal Cannula* 4 36 Total Intake and Output 03/26/24 03/26/24 03/27/24 15:00 23:00 07:00 Intake Total 50 ml 0 ml 200 ml Output Total 0 ml Balance 50 ml 0 ml 200 ml medications Current Medications Medications Dose Ordered Sig/Renan Route Start Time Stop Time Status Last Admin Dose Admin Acetaminophen 325 mg Q4HP PRN PO 03/25/24 16:00 Ipratropium [place] 0.5 mg Q6HWA NEB 03/25/24 18:00 03/27/24 20:56 0.5 MG Levothyroxine Sodium 25 mcg QAM@0600 PO 03/26/24 06:00 03/27/24 05:12 25 MCG Vancomycin HCl 0 ml @ 0 mls/hr UD IV 03/25/24 21:15 Cefepime HCl 50 ml @ 12.5 mls/hr DAILY IV 03/26/24 10:00 03/27/24 10:17 12.5 MLS/HR Metoprolol Tartrate 12.5 mg BID PO 03/26/24 10:00 03/27/24 21:44 12.5 MG Aspirin 81 mg DAILY PO 03/26/24 10:00 03/27/24 10:22 81 MG Atorvastatin Calcium 40 mg HS PO 03/26/24 22:00 03/27/24 21:43 40 MG Enoxaparin Sodium 80 mg Q12H SC 03/27/24 02:00 Albuterol 2.5 mg Q4HPRN PRN NEB 03/26/24 20:15 Azithromycin 250 ml @ 125 mls/hr DAILY@2200 IV 03/27/24 22:00 03/27/24 21:45 125 MLS/HR Prednisone 40 mg DAILY PO 03/27/24 10:00 03/27/24 10:21 40 MG objective Gen.: Patient lying in bed in no apparent distress. On supplemental oxygen. Head: Normocephalic, atraumatic. Eyes: EOMI/PERRLA. Ears: Normal hearing. Normal anatomy. Neck/trachea: Trachea midline, supple. Nose: Normal external anatomy. Mouth: Moist mucous membranes. Chest: Decreased air entry bilaterally. No wheezing or rhonchi. Cardiovascular: Positive S1, positive S2. Regular rate and rhythm. Abdomen: Positive bowel sounds in all 4 quadrants. Soft, non-tender, non- distended. : Deferred. Rectal: Deferred. Skin: Warm, dry. Intact. Extremities: 2+ radial pulses bilaterally. No lower extremity edema. Neuro: Awake, alert, oriented x3. No gross motor or sensory deficits. Cranial nerves II through XII intact. Gait not assessed. laboratory and microbiology Laboratory Tests 03/27/24 06:34 Test 03/27/24 06:34 Range/Units Serum Glucose 169 H 74-106 mg/dL Assessment/Plan Impression: Acute hypoxic respiratory failure Systolic/diastolic heart failure exacerbation Acute exacerbation of COPD Multifocal pneumonia Pulmonary embolism Acute on chronic kidney injury Atrial fibrillation with RVR Obesity with a BMI of 31.7 Events: Remains on supplemental oxygen, 4 LPM NC Taper O2 as tolerated S/p right thoracentesis w/ 1 liter fluid removed from right pleural space. See separate procedure note for details. Will obtain post procedure CXR. Continue bronchodilators Continue steroids Continue antibiotics Incentive spirometry Continue diuretics Monitor renal function Monitor ins and outs Labs and imaging reviewed. Rest of plan as noted below. Plan: Supplemental oxygen Keep O2 saturation above 92%. Continue antibiotics Follow up cultures Continue bronchodilators CTA of the chest showed no e/o pulmonary embolism. Diurese to euvolemia. Monitor ins and outs. Monitor renal function. Monitor electrolytes. Supplement as necessary. Cardiology recommendations appreciated. S/p right thoracentesis w/ 1 liter fluid removed from right pleural space. DVT prophylaxis Prognosis: Poor given multiple comorbidities. Rest of plan per hospitalist and other consultants. Thank you Dr. Valdes for allowing me to participate in this patient's care. Further recommendations will depend on patient's clinical course. Please do not hesitate to contact me if you have any questions or concerns. This medical document was created using an electronic medical record system with [employer] system. Although this document has been carefully reviewed, there may still be some phonetic and typographical errors. These areas are purely typographical due to imperfections of the software programs, and do not reflect any compromise in the patient's medical care. Plan discussed with: Patient, Other (KIYA Limon) ANGELA THURSTON MD Mar 27, 2024 23:33
[2024-03-28] VITALS (17 sets, daily range): BP systolic 103–146; BP diastolic 58–80; PULSE 60–91; RESP 16–22; TEMP 96.5–98.2; O2SAT 91–99
[2024-03-28 07:25] LABS: Anion Gap 9 (5-15); Carbon Dioxide 23 mmol/L (20-31); Potassium 4.6 mmol/L (3.5-5.1); Sodium 141 mmol/L (136-145)
[2024-03-28 07:31] LABS: BUN/Creatinine Ratio 29.4 (10.0-20.0)
[2024-03-28 07:35] LABS: Blood Urea Nitrogen 37 mg/dL (9-23); Calcium 8.5 mg/dL (8.7-10.4); Chloride 109 mmol/L (98-107); Glucose 116 mg/dL (74-106)
[2024-03-28 07:41] LABS: Basophils # (auto) 0 10 ^3/uL (0-0.2); Basophils % (auto) 0.3 % (0.0-2.0); Eosinophils # (auto) 0 10 ^3/uL (0-0.8); Hematocrit 35.9 % (41.0-53.0); Lymphocytes # (auto) 1.1 10 ^3/uL (0.4-5.4); Lymphocytes % (auto) 7.4 % (10.0-50.0); Mean Corpuscular Hemoglobin 32.2 pg (28.0-32.0); Mean Corpuscular Hgb Conc. 33.6 g/dL (32.0-36.0); Mean Corpuscular Volume 96.1 fL (80.0-100.0); Monocytes # (auto) 0.5 10 ^3/uL (0-1.3); Monocytes % (auto) 3.5 % (0.0-12.0); Neutrophils # (auto) 13.5 10 ^3/uL (1.6-8.6); Neutrophils % (auto) 88.8 % (37.0-80.0); Nucleated Red Blood Cells % 0.1 %; Platelet Count (auto) 343 10^3/uL (140-450); Red Blood Cells 3.73 10^6/uL (4.5-5.90); Red Cell Distribution Width 15.4 % (11.8-14.3); White Blood Cell 15.2 10^3/uL (4.4-10.8)
[2024-03-28 09:23] LABS: Hepatitis B Core Total AB Negative (Negative)
--- NOTE | 2024-03-28 10:10 | DVHPN2 ---
Subjective He says he is feeling better after he had a thoracentesis yesterday He is still on 3 L nasal cannula He complains of generalized weakness Changes from previous H/P or p: Changes Objective Vitals Vital Signs Date Time Temp Pulse Resp B/P (MAP) Pulse Ox O2 Delivery O2 Flow Rate FiO2 03/28/24 08:36 97.3 82 16 111/63 (79) 98 97.3 03/28/24 06:25 Nasal Cannula* 3 32 Intake/Output Intake and Output 03/28/24 07:00 Intake Total 790 ml Output Total 600 ml Balance 190 ml Intake Oral 240 ml IV Total 550 ml Output Urine Total 600 ml # Voids 2 # Bowel Movements 1 General Appearance: Alert, Oriented X3, mild distress Lungs: Other (Bilateral rhonchi at the bases) Cardiovascular: Regular rate, Normal S1, Normal S2 Abdomen: Normal bowel sounds, Soft, No tenderness Extremities: No edema Medications Current Medications Medications Dose Ordered Sig/Renan Route Start Time Stop Time Status Last Admin Dose Admin Acetaminophen 325 mg Q4HP PRN PO 03/25/24 16:00 Ipratropium [place] 0.5 mg Q6HWA NEB 03/25/24 18:00 03/28/24 06:25 0.5 MG Levothyroxine Sodium 25 mcg QAM@0600 PO 03/26/24 06:00 03/28/24 05:25 25 MCG Vancomycin HCl 0 ml @ 0 mls/hr UD IV 03/25/24 21:15 Cefepime HCl 50 ml @ 12.5 mls/hr DAILY IV 03/26/24 10:00 03/27/24 10:17 12.5 MLS/HR Metoprolol Tartrate 12.5 mg BID PO 03/26/24 10:00 03/27/24 21:44 12.5 MG Aspirin 81 mg DAILY PO 03/26/24 10:00 03/27/24 10:22 81 MG Atorvastatin Calcium 40 mg HS PO 03/26/24 22:00 03/27/24 21:43 40 MG Enoxaparin Sodium 80 mg Q12H SC 03/27/24 02:00 03/28/24 01:59 80 MG Albuterol 2.5 mg Q4HPRN PRN NEB 03/26/24 20:15 Azithromycin 250 ml @ 125 mls/hr DAILY@2200 IV 03/27/24 22:00 03/27/24 21:45 125 MLS/HR Prednisone 40 mg DAILY PO 03/27/24 10:00 03/27/24 10:21 40 MG Laboratory Results Laboratory Tests 03/28/24 06:01 Chemistry Test 03/28/24 06:01 Calcium Level 8.5 mg/dL (8.7-10.4) L Urinalysis Test 03/25/24 22:40 Urine Color Yellow (Yellow) Urine Clarity Clear (Clear) Urine pH 5.5 (5.0-9.0) Urine Specific [place] 1.022 (1.001-1.035) Urine Protein Trace (Negative) H Urine Ketones Negative (Negative) Urine Blood Trace /uL (Negative) H Urine Nitrite Negative (Negative) Urine Bilirubin Negative (Negative) Urine Urobilinogen Normal mg/dL (Negative) Urine Leukocyte Esterase 2+ /uL (Negative) Urine RBC 1 /hpf (0 - 3) Urine WBC 2 /hpf (0 - 3) Urine Squamous Epithelial Cells Few /hpf (<5) Urine Bacteria None seen /hpf (None Seen) Urine Mucus Few (None Seen) Urine Osmolality 458 mOsm/kg Urine Sodium 92 mmol/L (40-220) Urine Glucose Normal mg/dL (Normal) Microbiology Microbiology Date/Time Source Procedure Growth Status 03/25/24 12:15 Blood Blood Culture - Preliminary NO GROWTH AFTER 48 HOURS OF INCUBATION. Resulted Assessment/Plan Assessment/Plan Acute hypoxic respiratory failure Multifocal pneumonia Right pleural effusion status post thoracentesis Atrial fibrillation with rapid ventricular response Coronary artery disease History of CABG Diastolic heart failure, chronic compensated COPD Mixed hyperlipidemia Transaminitis History of Wilhelm's palsy Hard of hearing Morbid obesity Infrarenal AAA measuring 2.9 cm Hypothyroidism Plan Continue IV antibiotics with cefepime and Zithromax Continue vancomycin Lovenox Prednisone Metoprolol Levothyroxine Aspirin Oxygen as needed Med neb treatments as needed Order physical therapy and out of bed as tolerated Tapered down the oxygen as needed to get him ready to go home soon The rest of the management will depend on the hospital course Full code Plan discussed with: Patient Date of Service: Mar 28, 2024 Billing Provider: SHANE FULTON MD Common Visit Codes: NOT BILLABLE SHANE FULTON MD Mar 28, 2024 10:10
[2024-03-28 12:41] LABS: Hepatitis A Total Antibody Positive (Negative); Hepatitis B Surface Antibody Negative (Negative); Hepatitis B Surface Antigen Negative (Negative); Hepatitis C Antibody Negative (Negative)
[2024-03-28] MEDS: VANCOMYCIN 500mg/100mL PREMIX or KIT IV ONE (17:43)
[2024-03-28] MEDS: ALBUTEROL SULF 2.5 MG/0.5ML(0.5%) NEB SOLN NEB PRN (18:58)
--- NOTE | 2024-03-28 23:11 | DVHPN2 ---
Progress Note - Dictate Date Seen: Mar 28, 2024 Medical Necessity Reason Pt with a Central, PICC or Fol: No Subjective Patient seen and examined at bedside. Remains on supplemental oxygen Overnight events reviewed. vital signs Vital Sign Date Time Temp Pulse Resp B/P (MAP) Pulse Ox O2 Delivery O2 Flow Rate FiO2 03/28/24 22:31 81 18 94 03/28/24 21:20 115/72 03/28/24 21:00 96.5 96.5 03/28/24 19:10 4.0 36 03/28/24 18:58 Nasal Cannula* Total Intake and Output 03/27/24 03/27/24 03/28/24 15:00 23:00 07:00 Intake Total 250 ml 175 ml 365 ml Output Total 600 ml Balance 250 ml -425 ml 365 ml medications Current Medications Medications Dose Ordered Sig/Renan Route Start Time Stop Time Status Last Admin Dose Admin Acetaminophen 325 mg Q4HP PRN PO 03/25/24 16:00 Ipratropium [place] 0.5 mg Q6HWA NEB 03/25/24 18:00 03/28/24 22:31 0.5 MG Levothyroxine Sodium 25 mcg QAM@0600 PO 03/26/24 06:00 03/28/24 05:25 25 MCG Vancomycin HCl 0 ml @ 0 mls/hr UD IV 03/25/24 21:15 Cefepime HCl 50 ml @ 12.5 mls/hr DAILY IV 03/26/24 10:00 03/28/24 10:42 12.5 MLS/HR Metoprolol Tartrate 12.5 mg BID PO 03/26/24 10:00 03/28/24 21:20 12.5 MG Aspirin 81 mg DAILY PO 03/26/24 10:00 03/28/24 10:37 81 MG Atorvastatin Calcium 40 mg HS PO 03/26/24 22:00 03/28/24 21:20 40 MG Enoxaparin Sodium 80 mg Q12H SC 03/27/24 02:00 03/28/24 15:35 80 MG Albuterol 2.5 mg Q4HPRN PRN NEB 03/26/24 20:15 03/28/24 22:31 2.5 MG Azithromycin 250 ml @ 125 mls/hr DAILY@2200 IV 03/27/24 22:00 03/28/24 21:28 125 MLS/HR Prednisone 40 mg DAILY PO 03/27/24 10:00 03/28/24 10:37 40 MG objective Gen.: Patient lying in bed in no apparent distress. On supplemental oxygen. Head: Normocephalic, atraumatic. Eyes: EOMI/PERRLA. Ears: Normal hearing. Normal anatomy. Neck/trachea: Trachea midline, supple. Nose: Normal external anatomy. Mouth: Moist mucous membranes. Chest: Decreased air entry bilaterally. No wheezing or rhonchi. Cardiovascular: Positive S1, positive S2. Regular rate and rhythm. Abdomen: Positive bowel sounds in all 4 quadrants. Soft, non-tender, non- distended. : Deferred. Rectal: Deferred. Skin: Warm, dry. Intact. Extremities: 2+ radial pulses bilaterally. No lower extremity edema. Neuro: Awake, alert, oriented x3. No gross motor or sensory deficits. Cranial nerves II through XII intact. Gait not assessed. laboratory and microbiology Laboratory Tests 03/28/24 06:01 Test 03/28/24 06:01 Range/Units Serum Glucose 116 H 74-106 mg/dL Assessment/Plan Impression: Acute hypoxic respiratory failure Systolic/diastolic heart failure exacerbation Acute exacerbation of COPD Multifocal pneumonia Pulmonary embolism Acute on chronic kidney injury Atrial fibrillation with RVR Obesity with a BMI of 31.7 Events: Remains on supplemental oxygen, 3 LPM NC Taper O2 as tolerated Improving O2 requirements Continue bronchodilators Continue steroids - PO prednisone Continue antibiotics Incentive spirometry Patient is out of bed to chair. Labs and imaging reviewed. Rest of plan as noted below. Plan: Supplemental oxygen Keep O2 saturation above 92%. 03/27/24 - S/p right thoracentesis w/ 1 liter fluid removed from right pleural space. See separate procedure note for details. Continue antibiotics Follow up cultures Continue bronchodilators CTA of the chest showed no e/o pulmonary embolism. Maintain euvolemia Monitor ins and outs. Monitor renal function. Monitor electrolytes. Supplement as necessary. Cardiology recommendations appreciated. DVT prophylaxis Prognosis: Poor given multiple comorbidities. Rest of plan per hospitalist and other consultants. Thank you Dr. Valdes for allowing me to participate in this patient's care. Further recommendations will depend on patient's clinical course. Please do not hesitate to contact me if you have any questions or concerns. This medical document was created using an electronic medical record system with Dragon computerized dictation system. Although this document has been carefully reviewed, there may still be some phonetic and typographical errors. These areas are purely typographical due to imperfections of the software programs, and do not reflect any compromise in the patient's medical care. Plan discussed with: Patient, Other (KIYA Limon) ANGELA THURSTON MD Mar 28, 2024 23:11
[2024-03-29] VITALS (15 sets, daily range): BP systolic 115–146; BP diastolic 62–89; PULSE 63–94; RESP 18–24; TEMP 97.1–98.4; O2SAT 90–99
[2024-03-29 09:09] LABS: Basophils # (auto) 0.1 10 ^3/uL (0-0.2); Basophils % (auto) 0.8 % (0.0-2.0); Eosinophils # (auto) 0 10 ^3/uL (0-0.8); Eosinophils % (auto) 0.1 % (0.0-7.0); Hematocrit 36.8 % (41.0-53.0); Hemoglobin 12.4 g/dL (13.5-17.5); Lymphocytes # (auto) 1.3 10 ^3/uL (0.4-5.4); Lymphocytes % (auto) 9.7 % (10.0-50.0); Mean Corpuscular Hemoglobin 32.2 pg (28.0-32.0); Mean Corpuscular Hgb Conc. 33.7 g/dL (32.0-36.0); Mean Corpuscular Volume 95.7 fL (80.0-100.0); Monocytes # (auto) 0.8 10 ^3/uL (0-1.3); Neutrophils # (auto) 10.7 10 ^3/uL (1.6-8.6); Neutrophils % (auto) 83.4 % (37.0-80.0); Nucleated Red Blood Cells % 0.1 %; Platelet Count (auto) 347 10^3/uL (140-450); Red Blood Cells 3.85 10^6/uL (4.5-5.90); Red Cell Distribution Width 15.6 % (11.8-14.3); White Blood Cell 12.9 10^3/uL (4.4-10.8)
[2024-03-29 09:28] LABS: Anion Gap 9 (5-15); BUN/Creatinine Ratio 21.7 (10.0-20.0); Calcium 9.1 mg/dL (8.7-10.4); Carbon Dioxide 23 mmol/L (20-31); Sodium 142 mmol/L (136-145)
[2024-03-29 09:29] LABS: Magnesium 2.6 mg/dL (1.6-2.6)
[2024-03-29 09:30] LABS: Albumin 3.3 g/dL (3.2-4.8); Bilirubin, Total 0.5 mg/dL (0.2-1.0)
--- NOTE | 2024-03-29 09:33 | DVHPN2 ---
Subjective Still on 3 liters O2 c/o weakness Changes from previous H/P or p: Changes Objective Vitals Vital Signs Date Time Temp Pulse Resp B/P (MAP) Pulse Ox O2 Delivery O2 Flow Rate FiO2 03/29/24 06:35 69 18 97 03/29/24 06:29 Nasal Cannula 3.0 03/29/24 06:29 32 03/29/24 05:00 97.6 146/89 (108) 97.6 Intake/Output Intake and Output 03/29/24 07:00 Intake Total 1215 ml Balance 1215 ml Intake Oral 940 ml IV Total 275 ml # Voids 1 # Bowel Movements 1 General Appearance: Alert, Oriented X3, mild distress Lungs: Other (Bilateral rhonchi at the bases) Cardiovascular: Regular rate, Normal S1, Normal S2 Abdomen: Normal bowel sounds, Soft, No tenderness Extremities: No edema Medications Current Medications Medications Dose Ordered Sig/Renan Route Start Time Stop Time Status Last Admin Dose Admin Acetaminophen 325 mg Q4HP PRN PO 03/25/24 16:00 Ipratropium [place] 0.5 mg Q6HWA NEB 03/25/24 18:00 03/29/24 06:29 0.5 MG Levothyroxine Sodium 25 mcg QAM@0600 PO 03/26/24 06:00 03/29/24 05:19 25 MCG Vancomycin HCl 0 ml @ 0 mls/hr UD IV 03/25/24 21:15 Cefepime HCl 50 ml @ 12.5 mls/hr DAILY IV 03/26/24 10:00 03/28/24 10:42 12.5 MLS/HR Metoprolol Tartrate 12.5 mg BID PO 03/26/24 10:00 03/28/24 21:20 12.5 MG Aspirin 81 mg DAILY PO 03/26/24 10:00 03/28/24 10:37 81 MG Atorvastatin Calcium 40 mg HS PO 03/26/24 22:00 03/28/24 21:20 40 MG Enoxaparin Sodium 80 mg Q12H SC 03/27/24 02:00 03/29/24 02:13 80 MG Albuterol 2.5 mg Q4HPRN PRN NEB 03/26/24 20:15 03/28/24 22:31 2.5 MG Azithromycin 250 ml @ 125 mls/hr DAILY@2200 IV 03/27/24 22:00 03/28/24 21:28 125 MLS/HR Prednisone 40 mg DAILY PO 03/27/24 10:00 03/28/24 10:37 40 MG Laboratory Results Laboratory Tests 03/29/24 08:19 Chemistry Test 03/29/24 08:19 Albumin Pending Calcium Level Pending Magnesium Level Pending Total Protein Pending LFT Test 03/29/24 08:19 Alanine Aminotransferase (ALT) Pending Alkaline Phosphatase Pending Aspartate Amino Transferase (AST) Pending Total Bilirubin Pending Urinalysis Test 03/25/24 22:40 Urine Color Yellow (Yellow) Urine Clarity Clear (Clear) Urine pH 5.5 (5.0-9.0) Urine Specific [place] 1.022 (1.001-1.035) Urine Protein Trace (Negative) H Urine Ketones Negative (Negative) Urine Blood Trace /uL (Negative) H Urine Nitrite Negative (Negative) Urine Bilirubin Negative (Negative) Urine Urobilinogen Normal mg/dL (Negative) Urine Leukocyte Esterase 2+ /uL (Negative) Urine RBC 1 /hpf (0 - 3) Urine WBC 2 /hpf (0 - 3) Urine Squamous Epithelial Cells Few /hpf (<5) Urine Bacteria None seen /hpf (None Seen) Urine Mucus Few (None Seen) Urine Osmolality 458 mOsm/kg Urine Sodium 92 mmol/L (40-220) Urine Glucose Normal mg/dL (Normal) Microbiology Microbiology Date/Time Source Procedure Growth Status 03/27/24 18:42 Pleural Fluid Gram Stain - Final Resulted 03/27/24 18:42 Pleural Fluid Body Fluid Culture - Preliminary Resulted 03/27/24 16:28 Nose MRSA Screen - Final Complete 03/25/24 12:15 Blood Blood Culture - Preliminary NO GROWTH AFTER 72 HOURS OF INCUBATION. Resulted Assessment/Plan Assessment/Plan Acute hypoxic respiratory failure Multifocal pneumonia Right pleural effusion status post thoracentesis Atrial fibrillation with rapid ventricular response Coronary artery disease History of CABG Diastolic heart failure, chronic compensated COPD Mixed hyperlipidemia Transaminitis History of Wilhelm's palsy Hard of hearing Morbid obesity Infrarenal AAA measuring 2.9 cm Hypothyroidism Plan 03/28/24: Continue IV antibiotics with cefepime and Zithromax Continue vancomycin Lovenox Prednisone Metoprolol Levothyroxine Aspirin Oxygen as needed Med neb treatments as needed Order physical therapy and out of bed as tolerated Tapered down the oxygen as needed to get him ready to go home soon The rest of the management will depend on the hospital course Full code 03/29/24: Physical therapy IV antibiotics Steroids Lovenox Aspirin Taper O2 down as tolerated Plan discussed with: Patient My Orders Orders - SHANE FULTON MD Procedure Category Date Status Time Pt Request For Service PT 03/28/24 Logged 10:02 Comprehensive LAB 03/29/24 In Process Metabolic Panel 04:00 Magnesium LAB 03/29/24 In Process 04:00 Date of Service: Mar 29, 2024 Billing Provider: SHANE FULTON MD Common Visit Codes: NOT BILLABLE SHANE FULTON MD Mar 29, 2024 09:33
[2024-03-29 09:43] LABS: Alanine Aminotransferase 313 U/L (7-40); Alkaline Phosphatase 119 U/L (46-116); Aspartate Aminotransferase 238 U/L (13-40); Blood Urea Nitrogen 25 mg/dL (9-23); Chloride 110 mmol/L (98-107); Glucose 107 mg/dL (74-106)
[2024-03-29] MEDS: VANCOMYCIN 750MG VIAL 750 MG in D5W 5% 100 ML IV ONE (12:15)
[2024-03-29 19:06] LABS: Protein, Body Fluid 2.7 g/dL (.)
--- NOTE | 2024-03-29 23:47 | DVHPN2 ---
Progress Note - Dictate Date Seen: Mar 29, 2024 Medical Necessity Reason Pt with a Central, PICC or Fol: No Subjective Patient seen and examined at bedside. Remains on supplemental oxygen Overnight events reviewed. vital signs Vital Sign Date Time Temp Pulse Resp B/P (MAP) Pulse Ox O2 Delivery O2 Flow Rate FiO2 03/29/24 22:21 75 126/73 03/29/24 21:00 98.1 20 95 98.1 03/29/24 20:00 Nasal Cannula* 3 32 Total Intake and Output 03/28/24 03/28/24 03/29/24 15:00 23:00 07:00 Intake Total 240 ml 875 ml 100 ml Balance 240 ml 875 ml 100 ml medications Current Medications Medications Dose Ordered Sig/Renan Route Start Time Stop Time Status Last Admin Dose Admin Acetaminophen 325 mg Q4HP PRN PO 03/25/24 16:00 Ipratropium [place] 0.5 mg Q6HWA NEB 03/25/24 18:00 03/29/24 19:16 0.5 MG Levothyroxine Sodium 25 mcg QAM@0600 PO 03/26/24 06:00 03/29/24 05:19 25 MCG Vancomycin HCl 0 ml @ 0 mls/hr UD IV 03/25/24 21:15 Cefepime HCl 50 ml @ 12.5 mls/hr DAILY IV 03/26/24 10:00 03/29/24 10:13 12.5 MLS/HR Metoprolol Tartrate 12.5 mg BID PO 03/26/24 10:00 03/29/24 21:21 12.5 MG Aspirin 81 mg DAILY PO 03/26/24 10:00 03/29/24 10:12 81 MG Atorvastatin Calcium 40 mg HS PO 03/26/24 22:00 03/29/24 21:21 40 MG Enoxaparin Sodium 80 mg Q12H SC 03/27/24 02:00 03/29/24 21:20 80 MG Albuterol 2.5 mg Q4HPRN PRN NEB 03/26/24 20:15 03/29/24 19:16 2.5 MG Azithromycin 250 ml @ 125 mls/hr DAILY@2200 IV 03/27/24 22:00 03/29/24 21:22 125 MLS/HR Prednisone 40 mg DAILY PO 03/27/24 10:00 03/29/24 10:12 40 MG objective Gen.: Patient lying in bed in no apparent distress. On supplemental oxygen. Head: Normocephalic, atraumatic. Eyes: EOMI/PERRLA. Ears: Normal hearing. Normal anatomy. Neck/trachea: Trachea midline, supple. Nose: Normal external anatomy. Mouth: Moist mucous membranes. Chest: Decreased air entry bilaterally. No wheezing or rhonchi. Cardiovascular: Positive S1, positive S2. Regular rate and rhythm. Abdomen: Positive bowel sounds in all 4 quadrants. Soft, non-tender, non- distended. : Deferred. Rectal: Deferred. Skin: Warm, dry. Intact. Extremities: 2+ radial pulses bilaterally. No lower extremity edema. Neuro: Awake, alert, oriented x3. No gross motor or sensory deficits. Cranial nerves II through XII intact. Gait not assessed. laboratory and microbiology Laboratory Tests 03/29/24 08:19 Test 03/29/24 08:19 Range/Units Serum Glucose 107 H 74-106 mg/dL Assessment/Plan Impression: Acute hypoxic respiratory failure Systolic/diastolic heart failure exacerbation Acute exacerbation of COPD Multifocal pneumonia Pulmonary embolism Acute on chronic kidney injury Atrial fibrillation with RVR Obesity with a BMI of 31.7 Events: Remains on supplemental oxygen, 2 LPM NC Taper O2 as tolerated Improving O2 requirements Continue bronchodilators Continue steroids - PO prednisone Continue antibiotics Incentive spirometry Therapeutic Lovenox Labs and imaging reviewed. Rest of plan as noted below. Plan: Supplemental oxygen Keep O2 saturation above 92%. 03/27/24 - S/p right thoracentesis w/ 1 liter fluid removed from right pleural space. See separate procedure note for details. Continue antibiotics Follow up cultures Continue bronchodilators CTA of the chest showed no e/o pulmonary embolism. Maintain euvolemia Monitor ins and outs. Monitor renal function. Monitor electrolytes. Supplement as necessary. Cardiology recommendations appreciated. DVT prophylaxis Prognosis: Poor given multiple comorbidities. Rest of plan per hospitalist and other consultants. Thank you Dr. Valdes for allowing me to participate in this patient's care. Further recommendations will depend on patient's clinical course. Please do not hesitate to contact me if you have any questions or concerns. This medical document was created using an electronic medical record system with [employer] system. Although this document has been carefully reviewed, there may still be some phonetic and typographical errors. These areas are purely typographical due to imperfections of the software programs, and do not reflect any compromise in the patient's medical care. Plan discussed with: Patient, Other (KIYA Malik) ANGELA THURSTON MD Mar 29, 2024 23:47
[2024-03-30] VITALS (9 sets, daily range): BP systolic 120–140; BP diastolic 63–87; PULSE 58–92; RESP 18–20; TEMP 97.4–97.9; O2SAT 92–100
[2024-03-30 07:46] LABS: Anion Gap 7 (5-15); Calcium 8.9 mg/dL (8.7-10.4); Carbon Dioxide 26 mmol/L (20-31); Potassium 4.3 mmol/L (3.5-5.1); Sodium 141 mmol/L (136-145)
[2024-03-30 07:48] LABS: Chloride 108 mmol/L (98-107)
[2024-03-30 07:52] LABS: BUN/Creatinine Ratio 27.5 (10.0-20.0); Glucose 100 mg/dL (74-106)
[2024-03-30 08:02] LABS: Blood Urea Nitrogen 30 mg/dL (9-23)
--- NOTE | 2024-03-30 09:24 | ECG ---
[facility] Test Date: 2024-03-25 Test Time: 09:31:44 Pat Name: ZANDER UMANZOR Department: er Room: [facility]8T A Gender: M Nurse Transition: arlette : 1935 Requested By: BOOM HART Order Number: [id number] Reading MD: Kleber Griffin Measurements Intervals [place] Rate: 131 P: 0 ME: 0 QRS: -82 QRSD: 78 T: 85 QT: 368 QTc: 544 Interpretive Statements Atrial fibrillation Left anterior fascicular block Anteroseptal infarct, age indeterminate Prolonged QT interval Electronically Signed On 03-31-2024 9:41:03 PST by Kleber Griffin Please click the below link to view image of tracing.
[2024-03-30] MEDS ORDERED: METH4PAK PO ×2 (11:39)
[2024-03-30] MEDS ORDERED: DOXY1CAP57 PO ×2 (11:39)
--- NOTE | 2024-03-30 11:43 | DVHDS2 ---
Discharge Summary Date of Admission Mar 25, 2024 at 15:50 Date of Discharge: Mar 30, 2024 Labs/Diagnostic Data: Laboratory Results Test 03/30/24 06:37 03/29/24 08:19 03/27/24 18:42 03/27/24 06:34 Sodium Level 141 mmol/L (136-145) Potassium Level 4.3 mmol/L (3.5-5.1) Chloride Level 108 mmol/L (98-107) Carbon Dioxide Level 26 mmol/L (20-31) Anion Gap 7 (5-15) Blood Urea Nitrogen 30 mg/dL (9-23) Creatinine 1.09 mg/dL (0.700-1.30) Glomerular Filtration Rate Calc 65 mL/min (>90) BUN/Creatinine Ratio 27.5 (10.0-20.0) Serum Glucose 100 mg/dL (74-106) Calcium Level 8.9 mg/dL (8.7-10.4) Random Vancomycin Level 14.2 ug/mL (5-10) White Blood Count 12.9 10^3/uL (4.4-10.8) Red Blood Count 3.85 10^6/uL (4.5-5.90) Hemoglobin 12.4 g/dL (13.5-17.5) Hematocrit 36.8 % (41.0-53.0) Mean Corpuscular Volume 95.7 fL (80.0-100.0) Mean Corpuscular Hemoglobin 32.2 pg (28.0-32.0) Mean Corpuscular Hemoglobin Concent 33.7 g/dL (32.0-36.0) Red Cell Distribution Width 15.6 % (11.8-14.3) Platelet Count 347 10^3/uL (140-450) Mean Platelet Volume 9.1 fL (6.9-10.8) Neutrophils (%) (Auto) 83.4 % (37.0-80.0) Lymphocytes (%) (Auto) 9.7 % (10.0-50.0) Monocytes (%) (Auto) 6.0 % (0.0-12.0) Eosinophils (%) (Auto) 0.1 % (0.0-7.0) Basophils (%) (Auto) 0.8 % (0.0-2.0) Neutrophils # (Auto) 10.7 10 ^3/uL (1.6-8.6) Lymphocytes # (Auto) 1.3 10 ^3/uL (0.4-5.4) Monocytes # (Auto) 0.8 10 ^3/uL (0-1.3) Eosinophils # (Auto) 0 10 ^3/uL (0-0.8) Basophils # (Auto) 0.1 10 ^3/uL (0-0.2) Nucleated Red Blood Cells 0.1 % Magnesium Level 2.6 mg/dL (1.6-2.6) Total Bilirubin 0.5 mg/dL (0.2-1.0) Aspartate Amino Transferase (AST) 238 U/L (13-40) Alanine Aminotransferase (ALT) 313 U/L (7-40) Alkaline Phosphatase 119 U/L (46-116) Total Protein 6.0 g/dL (5.7-8.2) Albumin 3.3 g/dL (3.2-4.8) Body Fluid Source Pleural fluid Body Fluid pH 8.0 Body Fluid WBC (Manual) 647 CUMM (0-200) Body Fluid RBC (Manual) 2502 CUMM (0-2000) Body Fluid Mononuclear Cells 80 % Body Fluid Polymorphonuclear Cells 20 % (0-25) Body Fluid Glucose 146 mg/dL (.) Body Fluid Total Protein 2.7 g/dL (.) Body Fluid Lactate Dehydrogenase 284 IU/L (.) Hepatitis A Antibody Total Positive (Negative) Hepatitis B Surface Antigen Negative (Negative) Hepatitis B Surface Antibody Negative (Negative) Hepatitis B Core Total Antibody Negative (Negative) Hepatitis C Antibody Negative (Negative) Test 03/26/24 05:15 03/25/24 22:40 03/25/24 17:06 03/25/24 13:12 Hemoglobin A1c 5.7 % A1C (<5.7) Triglycerides Level 67 mg/dL (< 150) Cholesterol Level < 50.0 mg/dL (< 200) LDL Cholesterol 22 mg/dL (< 100) HDL Cholesterol 15 mg/dL (40-59) Urine Color Yellow (Yellow) Urine Clarity Clear (Clear) Urine pH 5.5 (5.0-9.0) Urine Specific [place] 1.022 (1.001-1.035) Urine Protein Trace (Negative) Urine Ketones Negative (Negative) Urine Blood Trace /uL (Negative) Urine Nitrite Negative (Negative) Urine Bilirubin Negative (Negative) Urine Urobilinogen Normal mg/dL (Negative) Urine Leukocyte Esterase 2+ /uL (Negative) Urine RBC 1 /hpf (0 - 3) Urine WBC 2 /hpf (0 - 3) Urine Squamous Epithelial Cells Few /hpf (<5) Urine Bacteria None seen /hpf (None Seen) Urine Mucus Few (None Seen) Urine Osmolality 458 mOsm/kg Urine Sodium 92 mmol/L (40-220) Urine Glucose Normal mg/dL (Normal) Prothrombin Time 14.0 sec (9.3-11.8) Prothrombin Time INR 1.35 (0.9-1.15) Troponin I High Sensitivity 6 ng/L (</=54) Thyroid Stimulating Hormone (TSH) 0.79 uIU/mL (0.55-4.78) Test 03/25/24 11:56 03/25/24 10:43 Influenza Type A Antigen Negative (Negative) Influenza Type B Antigen Negative (Negative) SARS-CoV-2 Antigen (Rapid) Negative (NEGATIVE) Lactic Acid Level 1.2 mmol/L (0.4-2.0) B-Type Natriuretic Peptide 288.25 pg/mL (0-100) Other Laboratory Tests 03/30/24 06:37 03/29/24 08:19 Brief Hx & Hospital Course: Final diagnoses: Acute hypoxic respiratory failure Multifocal pneumonia Right pleural effusion status post thoracentesis Atrial fibrillation with rapid ventricular response Coronary artery disease History of CABG Diastolic heart failure, chronic compensated COPD Mixed hyperlipidemia Transaminitis History of Wilhelm's palsy Hard of hearing Morbid obesity Infrarenal AAA measuring 2.9 cm Hypothyroidism 88-year-old male who was admitted for acute upper respiratory failure with pneumonia and right pleural effusion He was given IV antibiotics Pleural effusion was drained with a thoracentesis He was hypoxic initially but with the treatment he improved Oxygen saturation today is good on room air He is asymptomatic Physical therapy saw him and ambulated well He can be discharged home today on p.o. doxycycline for 10 days and a steroid tapered dose and to resume home medications and follow up with his PCP as soon as possible Condition at Discharge: Stable Final Diagnosis/Problems List Acute hypoxic respiratory failure Multifocal pneumonia Right pleural effusion status post thoracentesis Atrial fibrillation with rapid ventricular response Coronary artery disease History of CABG Diastolic heart failure, chronic compensated COPD Mixed hyperlipidemia Transaminitis History of Wilhelm's palsy Hard of hearing Morbid obesity Infrarenal AAA measuring 2.9 cm Hypothyroidism Discharge Disposition: Home SNF Discharge Will this Physician continue t: No Discharge Instruct/Medications Diet: Consistent carbohydrate, Cardiac 2g Na,low cholest Activity: No Restrictions, As Tolerated Follow Up/Referral: PCP soon as possible Medications: Medrol Dosepak Doxycycline for 10 days Resume home medications Discharge Statement: "Patient was advised to return to the ER or call 911 if any headaches, dizziness, shortness of breath, chest pain, abdominal pain, bleeding, fevers, or worsening of medical condition. Patient was counseled about treatment plan, medications, possible side effects, patientverbalized understanding. All questions were answered to the best of my ability. This discharge took greater then 30 minutes in planning, reviewing documentation, counseling the patient, and discussing with other team members." ASSESSMENT ASSESSMENT Assessment Acute hypoxic respiratory failure Multifocal pneumonia Right pleural effusion status post thoracentesis Atrial fibrillation with rapid ventricular response Coronary artery disease History of CABG Diastolic heart failure, chronic compensated COPD Mixed hyperlipidemia Transaminitis History of Wilhelm's palsy Hard of hearing Morbid obesity Infrarenal AAA measuring 2.9 cm Hypothyroidism Date of Service: Mar 30, 2024 Billing Provider: SHANE FULTON MD Common Visit Codes: NOT BILLABLE SHANE FULTON MD Mar 30, 2024 11:43
[2024-03-30] MEDS: VANCOMYCIN 750MG VIAL 750 MG in D5W 5% 100 ML IV SCH (14:20)
--- NOTE | 2024-03-30 15:11 | ECG ---
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
--- NOTE | 2024-03-30 22:14 | DVHPN2 ---
Progress Note - Dictate Date Seen: Mar 30, 2024 Medical Necessity Reason Pt with a Central, PICC or Fol: No Subjective Patient seen and examined at bedside. Remains on supplemental oxygen Overnight events reviewed. vital signs Vital Sign Date Time Temp Pulse Resp B/P (MAP) Pulse Ox O2 Delivery O2 Flow Rate FiO2 03/30/24 11:52 97.4 87 18 140/87 (104) 93 97.4 03/30/24 11:38 Room Air 0.0 03/30/24 11:38 21 Total Intake and Output 03/29/24 03/29/24 03/30/24 15:00 23:00 07:00 Intake Total 650 ml 600 ml 845 ml Output Total 450 ml Balance 650 ml 600 ml 395 ml objective Gen.: Patient lying in bed in no apparent distress. On supplemental oxygen. Head: Normocephalic, atraumatic. Eyes: EOMI/PERRLA. Ears: Normal hearing. Normal anatomy. Neck/trachea: Trachea midline, supple. Nose: Normal external anatomy. Mouth: Moist mucous membranes. Chest: Decreased air entry bilaterally. No wheezing or rhonchi. Cardiovascular: Positive S1, positive S2. Regular rate and rhythm. Abdomen: Positive bowel sounds in all 4 quadrants. Soft, non-tender, non- distended. : Deferred. Rectal: Deferred. Skin: Warm, dry. Intact. Extremities: 2+ radial pulses bilaterally. No lower extremity edema. Neuro: Awake, alert, oriented x3. No gross motor or sensory deficits. Cranial nerves II through XII intact. Gait not assessed. laboratory and microbiology Laboratory Tests 03/30/24 06:37 03/29/24 08:19 Test 03/30/24 06:37 Range/Units Serum Glucose 100 74-106 mg/dL Assessment/Plan Impression: Acute hypoxic respiratory failure Systolic/diastolic heart failure exacerbation Acute exacerbation of COPD Multifocal pneumonia Pulmonary embolism Acute on chronic kidney injury Atrial fibrillation with RVR Obesity with a BMI of 31.7 Events: Remains on supplemental oxygen, 2 LPM NC Taper O2 as tolerated Improving O2 requirements Continue bronchodilators Continue steroids - PO prednisone Continue antibiotics Incentive spirometry Therapeutic Lovenox Patient is stable for discharge from the pulmonary standpoint. Follow up in 1-2 weeks in Pulmonary Clinic to assess for recurrence of pleural effusion. Labs and imaging reviewed. Rest of plan as noted below. Plan: Supplemental oxygen Keep O2 saturation above 92%. 03/27/24 - S/p right thoracentesis w/ 1 liter fluid removed from right pleural space. See separate procedure note for details. Continue antibiotics Follow up cultures Continue bronchodilators CTA of the chest showed no e/o pulmonary embolism. Maintain euvolemia Monitor ins and outs. Monitor renal function. Monitor electrolytes. Supplement as necessary. Cardiology recommendations appreciated. DVT prophylaxis Prognosis: Poor given multiple comorbidities. Rest of plan per hospitalist and other consultants. Thank you Dr. Valdes for allowing me to participate in this patient's care. Further recommendations will depend on patient's clinical course. Please do not hesitate to contact me if you have any questions or concerns. This medical document was created using an electronic medical record system with [employer] dictation system. Although this document has been carefully reviewed, there may still be some phonetic and typographical errors. These areas are purely typographical due to imperfections of the software programs, and do not reflect any compromise in the patient's medical care. Plan discussed with: Patient, Other (RN) ANGELA THURSTON MD Mar 30, 2024 22:14
== END 2024-03-30 14:45 | disposition home or self-care (01) | DRG 871 ==
LOC: EDBD 09:27 → ER 09:49 → TELE 15:50 → TELE-WESTW 03-26 16:56
PROVIDERS: ATTEND Internal Medicine Geriatric Medicine
PROC: 0W993ZZ Drainage of Right Pleural Cavity, Percutaneous Approach (ICD-10-PCS; principal; 2024-03-27)
DX: A41.50 Gram-negative sepsis, unspecified (principal); I26.99 Other pulmonary embolism without acute cor pulmonale; J96.01 Acute respiratory failure with hypoxia; I50.43 Acute on chronic combined systolic (congestive) and diastolic (congestive) heart failure; J18.9 Pneumonia, unspecified organism; J44.0 Chronic obstructive pulmonary disease with (acute) lower respiratory infection; J44.1 Chronic obstructive pulmonary disease with (acute) exacerbation; R04.2 Hemoptysis; I13.0 Hypertensive heart and chronic kidney disease with heart failure and stage 1 through stage 4 chronic kidney disease, or unspecified chronic kidney disease; Z20.822 Contact with and (suspected) exposure to COVID-19; I25.10 Atherosclerotic heart disease of native coronary artery without angina pectoris; I48.91 Unspecified atrial fibrillation; N40.0 Benign prostatic hyperplasia without lower urinary tract symptoms; Z96.643 Presence of artificial hip joint, bilateral; R74.01 Elevation of levels of liver transaminase levels; E03.9 Hypothyroidism, unspecified; F17.200 Nicotine dependence, unspecified, uncomplicated; E66.01 Morbid (severe) obesity due to excess calories; N18.9 Chronic kidney disease, unspecified; K21.9 Gastro-esophageal reflux disease without esophagitis; E78.2 Mixed hyperlipidemia; I71.43 Infrarenal abdominal aortic aneurysm, without rupture; Z95.1 Presence of aortocoronary bypass graft; Z68.31 Body mass index [BMI] 31.0-31.9, adult; Z85.828 Personal history of other malignant neoplasm of skin; Z79.01 Long term (current) use of anticoagulants; Z82.49 Family history of ischemic heart disease and other diseases of the circulatory system
CPT/HCPCS: 32555; 36415; 71045; 71275; 74175; 76700; 80048; 80053; 80061; 80202; 81001; 83036; 83605; 83735; 83880; 83935; 83986; 84300; 84443; 84484; 85025; 85610; 86704; 86706; 86708; 86803; 86850; 86900; 86901; 87040; 87070; 87077; 87081; 87205; 87340; 87426; 87804; 89051; 93005; 93306; 93925; 94640; 97110; 97116; 97163; 97530; G0378; J0692; J2543; J7060

== ENCOUNTER 2024-03-31 14:22 | Inpatient (IN) | payer OTHER ==
[~2024-03-31] VITALS: Ht 167.6 cm; Wt 74.3 kg
[~2024-03-31 14:22] MED LIST changes: +DOXY1CAP57 PO; +METH4PAK PO
--- NOTE | 2024-03-31 14:45 | ED.PDOC ---
Musculoskeletal HPI Comments 88 Y M BIBA with PMHX of HTN, DM, COPD, and HLD presents to the ED with CC of lower extremity. Patient states, that he is experiencing spontaneous right leg pain since yesterday night and is unable to bear weight since leaving the hospital on (03/30/24). Patient was D/C from [facility] with DX Afib/Pneumonia. Patient denies tobacco usage, ETOH consumption, or illicit drug use. Patient denies chest pain, nausea, vomiting, or diarrhea. Chief Complaint: Lower Extremity Time Seen by MD: 14:40 Primary Care Provider: ASHLEY Reviewed Notes: Nurses Notes, Wall Scraper Notes, Medications, Allergies Allergies: Coded Allergies: NO KNOWN ALLERGIES (Unverified , 04/17/17) Home Meds Active Scripts Doxycycline Monohydrate (Doxycycline Monohydrate) 100 Mg Cap, 1 CAP PO BID, #20 CAP Prov:SHANE FULTON MD 03/30/24 Methylprednisolone (Medrol Dosepak) 4 Mg Attila, 4 MG PO UD, #21 TAB UAD Prov:SHANE FULTON MD 03/30/24 Reported Medications Ezetimibe (Zetia) 10 Mg Tab, 1 TAB PO DAILY for 90 Days, #90 03/28/24 Furosemide (Furosemide) 20 Mg Tab, 1 TAB PO 3XW for 84 Days, #36 TAKE 1 TABLET BY MOUTH 3 TIMES A WEEK. 03/28/24 Amlodipine Besylate (Amlodipine Besylate) 5 Mg Tab, 1 TAB PO DAILY for 90 Days, #90 03/28/24 Carbamazepine (Carbamazepine) 200 Mg Tab, 1 TAB PO BID for 30 Days, #60 03/26/24 Bicalutamide (Bicalutamide) 50 Mg Tab, 1 TAB PO DAILY for 90 Days, #90 03/26/24 Fluticasone Propionate (Nasal) (Fluticasone Propionate) 50 Mcg/Act Spr, 1 SPRAY NATALIA DAILY for 60 Days, #16 03/26/24 Metoprolol Tartrate (Lopressor) 25 Mg Tb, 0.5 TAB PO DAILY for 90 Days, #45 03/26/24 Terazosin Hcl (Terazosin Hcl) 2 Mg Cap, 1 CAP PO HS for 90 Days, #90 03/26/24 Ketoconazole (Ketoconazole) 2 % Cre, 1 TOP DAILY for 30 Days, #30 03/26/24 Losartan Potassium (Losartan Potassium) 25 Mg Tab, 1 TAB PO DAILY for 90 Days, #90 03/26/24 Apixaban Base (ELIQUIS) 2.5 Mg Tab, 1 TAB PO BID for 30 Days, #60 03/26/24 Brimonidine Tartrate (Brimonidine Tartrate) 0.2 % Delaney, 1 DROP LEFTEYE BID for 75 Days, #10 03/26/24 Rosuvastatin Calcium (Rosuvastatin Calcium) 40 Mg Tab, 1 TAB PO HS for 90 Days, #90 03/26/24 Ferrous Sulfate (Ferosul) 325 Mg Tab, 1 TAB PO 3XW for 91 Days, #39 TAKE 1 TABLET BY MOUTH 3 TIMES A WEEK. 03/26/24 Levothyroxine Sodium (Levothyroxine Sodium) 75 Mcg Tab, 1 TAB PO DAILY for 90 Days, #90 03/26/24 Budesonide (Inhalation) (Budesonide) 0.5 Mg/2 Ml Viviana, 0.5 MG IN BID 04/17/17 Nitroglycerin (NTROSTAT SUBLINGUAL) 0.4 Mg Sl, 0.4 MG SL PRN for 30 Days, #100 *MAY REPEAT EVERY 5 MINUTES X 3 TOTAL IF NO RELIEF, INITIATE ANALGESIC THERAPY. NOTIFY PHYSICIAN *Do not crush. 04/17/17 Latanoprost (LATANOPROST) 0.005 % Delaney, 1 DROP EACHEYE BID for 68 Days, #9 04/17/17 Information Source: Patient, Emergency Med Personnel Mode of Arrival: EMS Location: Right Extremity Location: Leg Timing: Hours Prehospital treatment: None Severity: Mild Able to Move Extremity: No Bear Weight: No Pain: Mild Mechanism: None Onset of Symptoms: Spontaneous Symptoms: Pain DVT Risk Factors: NONE Associated signs and symptoms: None Past Medical History PAST MEDICAL HISTORY: CAD, Cancer (PROSTATE), COPD, High Lipids, HTN Surgical History: CABG, PTCA Family History Family History: Unknown Social History Smoker: Non-Smoker Alcohol: Denies ETOH Use Drugs: Denies Drug Use Lives In: Home Constitutional: denies: chills, diaphoresis, fatigue, fever, malaise, sweats, weakness, others EENTM: denies: blurred vision, double vision, ear bleeding, ear discharge, ear drainage, ear pain, ear ringing, eye pain, eye redness, hearing loss, mouth pain, mouth swelling, nasal discharge, nose bleeding, nose congestion, nose pain, photophobia, tearing, throat pain, throat swelling, voice changes, others Respiratory: denies: cough, hemoptysis, orthopnea, SOB at rest, shortness of breath, SOB with excertion, stridor, wheezing, others Cardiovascular: denies: chest pain, dizzy spells, diaphoresis, Dyspnea on exertion, edema, irregular heart beat, left arm pain, lightheadedness, palpitations, PND, syncope, others Gastrointestinal: denies: abdomen distended, abdominal pain, blood streaked bowels, constipated, diarrhea, dysphagia, difficulty swallowing, hematemesis, melena, nausea, poor appetite, poor fluid intake, rectal bleeding, rectal pain, vomiting, others Genitourinary: denies: burning, dysuria, flank pain, frequency, hematuria, incontinence, penile discharge, penile sore, pain, testicle pain, testicle swelling, urgency, others Neurological: denies: dizziness, fainting, headache, left sided numbness, left sided weakness, numbness, paresthesia, pre-existing deficit, right sided numbness, right sided weakness, seizure, speech problems, tingling, tremors, weakness, others Musculoskeletal: reports: others (RIGHT LEG PAIN); denies: back pain, gout, joint pain, joint swelling, muscle pain, muscle stiffness, neck pain Integumetry: denies: bruises, change in color, change in hair/nails, dryness, laceration, lesions, lumps, rash, wounds, others Allergic/Immunocompromised: denies: Difficulty Healing, Frequent Infections, Hives, Itching, others Hematologic/Lymphatic: denies: anemia, blood clots, easy bleeding, easy bruising, swollen glands, others Endocrine: denies: excessive hunger, excessive sweating, excessive thirst, excessive urination, flushing, intolerance to cold, intolerance to heat, unexplained weight gain, unexplained weight loss, others Psychiatric: denies: anxiety, bipolar disorder, depression, hopeless, panic disorder, schizophrenia, sleepless, suicidal, others All Other Systems: Reviewed and Negative Physical Exam General Appearance: Mild Distress HEENT: Normal ENT Inspection, Pharynx Normal, TMs Normal Neck: Full Range of Motion, Non-Tender, Normal, Normal Inspection Respiratory: Chest Non-Tender, Lungs Clear, No Accessory Muscle Use, No Respiratory Distress, Normal Breath Sounds Cardiovascular: No Edema, No JVD, No Murmur, No Gallop, Normal Peripheral Pulses, Regular Rate/Rhythm Breast Exam: Deferred Gastrointestinal: No Organomegaly, Non Tender, No Pulsatile Mass, Normal Bowel Sounds, Soft Genitalia: Deferred Pelvic: Deferred Rectal: Deferred Extremities: No calf tenderness, Normal capillary refill, Normal inspection, Normal range of motion, Non-tender, No pedal edema Musculoskeletal : Location: Right Extremity Location: Leg (Tenderness to the right anterior femur area) Apperance: Normal Neurologic: Alert, metalsmith II-XII nml as Tested, No Motor Deficits, Normal Affect, Normal Mood, No Sensory Deficits Cerebellar Function: Normal Reflexes: Normal Skin: Dry, Normal Color, Warm Lymphatic: No Adenopathy Was a procedure done? Was a procedure done?: No Differential Diagnosis EXT Differential Diagnosis: Cellulitis X-Ray, Labs, Meds, VS Vital Signs Date Time Temp Pulse Resp B/P (MAP) Pulse Ox O2 Delivery O2 Flow Rate FiO2 03/31/24 17:02 98.1 99 17 161/99 (119) 99 98.1 03/31/24 14:33 97.2 86 16 143/77 (99) 98 Lab Test 03/31/24 15:44 Range/Units White Blood Count 13.7 H 4.4-10.8 10^3/uL Red Blood Count 3.38 L 4.5-5.90 10^6/uL Hemoglobin 10.8 L 13.5-17.5 g/dL Hematocrit 32.4 #L 41.0-53.0 % Mean Corpuscular Volume 95.8 80.0-100.0 fL Mean Corpuscular Hemoglobin 32.0 28.0-32.0 pg Mean Corpuscular Hemoglobin Concent 33.4 32.0-36.0 g/dL Red Cell Distribution Width 15.5 H 11.8-14.3 % Platelet Count 355 140-450 10^3/uL Mean Platelet Volume 9.1 6.9-10.8 fL Neutrophils (%) (Auto) 37.0-80.0 % Lymphocytes (%) (Auto) 10.0-50.0 % Monocytes (%) (Auto) 0.0-12.0 % Basophils (%) (Auto) 0.0-2.0 % Neutrophils # (Auto) 1.6-8.6 10 ^3/uL Lymphocytes # (Auto) 0.4-5.4 10 ^3/uL Monocytes # (Auto) 0-1.3 10 ^3/uL Differential Total Cells Counted 100.0 100 Neutrophils % (Manual) 89 H 37.0-80.0 Band Neutrophils % (Manual) 3 Lymphocytes % (Manual) 8 L 10.0-50.0 Monocytes % (Manual) 0 0-12 Eosinophils % (Manual) 0 0-7 Basophils % (Manual) 0 0.0-2.0 Metamyelocytes % (manual) 0 Myelocytes % (Manual) 0 Promyelocytes % (Manual) 0 Blast Cells % (Manual) 0 Reactive Lymphocytes 0 Platelet Estimate Adequate Sodium Level 136 # 136-145 mmol/L Potassium Level 4.7 3.5-5.1 mmol/L Chloride Level 106 98-107 mmol/L Carbon Dioxide Level 21 20-31 mmol/L Anion Gap 9 5-15 Blood Urea Nitrogen 33 H 9-23 mg/dL Creatinine 1.27 0.700-1.30 mg/dL Glomerular Filtration Rate Calc 54 >90 mL/min BUN/Creatinine Ratio 26.0 H 10.0-20.0 Serum Glucose 184 H 74-106 mg/dL Calcium Level 9.3 8.7-10.4 mg/dL Current Medications Medications (Trade) Dose Ordered Sig/Renan Route Start Time Stop Time Status Last Admin Acetaminophen/ Hydrocodone Bitart (Gays 5/325MG Tab) 1 tab ONCE ONCE PO 03/31/24 17:15 03/31/24 17:16 DC 03/31/24 17:07 RT LOWER DVT US: IMPRESSION: 1. No sonographic evidence of DVT in the right leg. HS:Y Patient was still having significant amount of pain so was given Gays The patient's CBC is within normal limits except for mild anemia with a hemoglobin of 10.8 The chemistry panel is within normal limits except for a BUN of 33 and a creatinine of 1.27 The patient was being admitted to the hospitalist Time of 1ST Reevaluation: 15:20 Reevaluation 1ST: Unchanged Patient Education/Counseling: Diagnosis, Treatment, Prognosis Family Education/Counseling: No Family Present Additional Information - I reviewed the following notes from patient's past medical encounters: [facility] D/C 03/30/24 Dx: Pneumonia/AFIB - The following tests were ordered, and results were reviewed by me: LABS, RT LOWER DVT US - Additional information was gathered from interviewing the following independent Historian: EMT - I reviewed and agreed with the following test results read by other provider: US Departure 1 Departure Time of Disposition: 17:50 Impression: Primary Impression: Generalized weakness Additional Impression: Right leg pain Disposition: ADMITTED INPATIENT Admit to: Med Surg Condition: Fair Critical Care Note Critical Care Time?: No Stability Stability form required: Yes Unstable for transfer: ED Physician Assesment (Clinical assesment) Heart Score Heart Score: Heart Score Response (Comments) Value History N/A 0 EKG N/A 0 Age N/A 0 Risk Factors N/A 0 Troponin N/A 0 Total 0 I personally scribed for ANNEMARIE CONCEPCION MD ([email or web address]) on 03/31/24 at 14:45. Electronically submitted by Erika Anguiano ([email or web address]). I personally scribed for ANNEMARIE CONCEPCION MD ([email or web address]) on 03/31/24 at 14:55. Electronically submitted by Erika Anguiano ([email or web address]). I personally scribed for ANNEMARIE CONCEPCION MD ([email or web address]) on 03/31/24 at 15:41. Electronically submitted by Erika Anguiano ([email or web address]). I personally scribed for ANNEMARIE CONCEPCION MD ([email or web address]) on 03/31/24 at 16:36. Electronically submitted by Erika Anguiano ([email or web address]). ANNEMARIE CONCEPCION MD Mar 31, 2024 14:45
--- NOTE | 2024-03-31 15:36 | DVH ---
RIGHT LOWER EXTREMITY VENOUS DOPPLER CLINICAL HISTORY: right leg pain TECHNIQUE: Right lower extremity venous doppler study was performed. COMPARISON: None FINDINGS: The right common femoral, superficial femoral, popliteal, posterior tibial veins appear patent with normal augmentation, phasicity, compressibility and color-flow. . IMPRESSION: 1. No sonographic evidence of DVT in the right leg. HS:Y
[2024-03-31 16:19] LABS: Hematocrit 32.4 % (41.0-53.0); Hemoglobin 10.8 g/dL (13.5-17.5); Mean Corpuscular Hgb Conc. 33.4 g/dL (32.0-36.0); Mean Corpuscular Volume 95.8 fL (80.0-100.0); Platelet Count (auto) 355 10^3/uL (140-450); Red Blood Cells 3.38 10^6/uL (4.5-5.90); Red Cell Distribution Width 15.5 % (11.8-14.3); White Blood Cell 13.7 10^3/uL (4.4-10.8)
[2024-03-31 16:26] LABS: Chloride 106 mmol/L (98-107); Potassium 4.7 mmol/L (3.5-5.1); Sodium 136 mmol/L (136-145)
[2024-03-31 16:27] LABS: Anion Gap 9 (5-15); Basophils % (manual) 0 (0.0-2.0); Blast Cells 0; Calcium 9.3 mg/dL (8.7-10.4); Carbon Dioxide 21 mmol/L (20-31); Eosinophils % (manual) 0 (0-7); Metamyelocytes % 0; Monocytes % (manual) 0 (0-12); Myelocytes % 0; Promyelocytes % 0; Reactive Lymphocytes 0
[2024-03-31 16:32] LABS: Blood Urea Nitrogen 33 mg/dL (9-23); Glucose 184 mg/dL (74-106)
[2024-03-31] MEDS: HYDROcodone-ACET 5/325MG TAB PO ONE ×2 (17:07→20:25)
[2024-03-31 17:14] LABS: Band Neutrophils % (manual) 3; Lymphocytes % (manual) 8 (10.0-50.0); Platelet Estimate Adequate
[2024-03-31 18:32] VITALS: PULSE 89; RESP 18; O2SAT 95
[2024-03-31 21:50] VITALS: PULSE 84; RESP 15; O2SAT 97
[2024-03-31] MEDS: SODIUM CHLORIDE 0.9% 1,000 ML IV ONE (23:56)
[2024-04-01] VITALS (7 sets, daily range): BP systolic 108–147; BP diastolic 53–85; PULSE 79–126; RESP 16–18; TEMP 97.2–98.8; O2SAT 93–100
[2024-04-01] MEDS ORDERED: LORazepam 2MG/ML-1ML VIAL IV ONE
[2024-04-01] MEDS: PIPERACILLIN-TAZO 4.5GM 100 ML IV ONE (00:13)
--- NOTE | 2024-04-01 00:46 | DVH ---
CHEST RADIOGRAPH Indication: tachycardia Technique: Single frontal view of the chest was obtained Comparison: XY CHEST XRAY 1 VIEW on DOS: 03/27/24, XY CHEST PORTABLE on DOS: 03/27/24, XY CHEST PORTABLE on DOS: 03/25/24 Findings/ IMPRESSION: Small right-sided pleural effusion and/or atelectasis. Superimposed infection not excluded.
[2024-04-01] MEDS ORDERED: ACETAMINOPHEN 325 MG TAB PO PRN (02:00)
[2024-04-01] MEDS ORDERED: DOCUSATE SOD 100 MG CAP PO PRN (02:00)
[2024-04-01] MEDS ORDERED: ONDANSETRON HCL 4 MG/2 ML VIAL IV PRN (02:00)
[2024-04-01] MEDS: SODIUM CHLORIDE 0.9% 1,000 ML IV SCH (02:15)
[2024-04-01 02:20] LABS: Lactic Acid w/Reflex 5.8 mmol/L (0.4-2.0)
--- NOTE | 2024-04-01 03:12 | DVHHP2 ---
History of Present Illness Reason for Visit: Generalized weakness History of Present Illness The patient is a 88-year-old male with past medical history prostate cancer, Coronary artery disease, COPD, hypertension, and hyperlipidemia who presented to [facility] ED with complaint of right lower extremity pain and s welling. Patient reports pain progressively get worse, unable to bear weight on his right foot, getting worse that prompted this visit. Patient was recently discharged from this hospital with diagnosis of AFib and pneumonia. Patient was seen and evaluated in the ED, laboratory data shows WBC 13.7, hemoglobin 10.8, hematocrit 32.4, platelets 355, sodium 136, potassium 4.7, BUN 33, creatinine 1.27, GFR 54, glucose 184, troponin 5, lactic acid 5.8 trending down to 3.6, EKG showed AFib with RVR at a rate of 108, normal QRS interval, QTC 467, left axis deviation, possible old inferior or anteroseptal infarct, nonspecific T changes. Extremity venous study shows no sonographic evidence of DVT in the right leg, chest x-ray revealing small right-sided pleural effusion and/or atelectasis, superimposed infection not excluded. Patient was started on IV antibiotic regimen Zosyn, please see medication orders section in the computer. On my assessment, patient denied chest pain, no headache, no dizziness, currently on oxygen, no nausea, no vomiting, no fever, no chills. Patient was admitted for further evaluation and medical management. Past Medical History AFib, CAD, Cancer (PROSTATE), COPD, High Lipids, HTN Past Surgical History CABG, PTCA Family History Reviewed, noncontributory to the management of this case. Past Social History The patient lives at home, denies smoking, alcohol or illicit drugs abuse. Review of Systems Constitutional: Yes: Weakness; No: Fever, Chills, Sweats, Malaise, Other Eyes: No: Pain, Vision change, Conjunctivae inflammation, Eyelid inflammation, Other, Redness ENT: No: Ear pain, Ear discharge, Nose pain, Nose discharge, Nose congestion, Mouth pain, Mouth swelling, Throat pain, Throat swelling, Other Respiratory: No: Cough, Dry, Shortness of breath, SOB with excertion, Wheezing, Hemoptysis, Pleuritic Pain, Sputum, Wheezing, Other Cardiovascular: Other (Atrial fibrillation); No: Chest Pain, Palpitations, Orthopnea, Paroxysmal Noc. Dyspnea, Edema, Lt Headedness Gastrointestinal: No: Nausea, Vomiting, Abdominal Pain, Diarrhea, Constipation, Melena, Hematochezia, Other Genitourinary: No Dysuria, No Frequency, No Incontinence, No Hematuria, No Retention, No Other Musculoskeletal: other (Right leg pain); No: neck pain, shoulder pain, arm pain, back pain, hand pain, leg pain, foot pain Skin: No: Rash, Lesions, Jaundice, Bruising, Other Neurological: No: Weakness, Numbness, Incoordination, Change in speech, Co nfusion, Seizures, Other Allergies: Coded Allergies: NO KNOWN ALLERGIES (Unverified , 04/17/17) Medications Current Medications Medications Dose Ordered Sig/Renan Route Start Time Stop Time Status Last Admin Dose Admin Atorvastatin Calcium 20 mg HS PO 04/01/24 22:00 Piperacillin Sod/ Tazobactam Sod 100 ml @ 25 mls/hr Q8H IV 04/01/24 08:00 Levothyroxine Sodium 75 mcg QAM@0600 PO 04/01/24 06:00 Apixaban 2.5 mg BID PO 04/01/24 10:00 UNV Sodium Chloride 1,000 ml @ 60 mls/hr [id number] IV 04/01/24 02:00 04/01/24 02:15 60 MLS/HR Acetaminophen/ Hydrocodone Bitart 1 tab Q4HP PRN PO 04/01/24 02:00 Ondansetron HCl 4 mg Q4HP PRN IV 04/01/24 02:00 Docusate Sodium 100 mg BIDPRN PRN PO 04/01/24 02:00 Acetaminophen 650 mg Q6HP PRN PO 04/01/24 02:00 Apixaban 5 mg BID PO 04/01/24 10:00 Exam Vital Signs Vital Signs Date Time Temp Pulse Resp B/P (MAP) Pulse Ox O2 Delivery O2 Flow Rate FiO2 04/01/24 02:44 04/01/24 01:00 83 13 98 04/01/24 00:00 96.1 96.1 03/31/24 21:50 Room Air* 0 21 General Appearance: Alert, Oriented X3, Cooperative, No acute distress HEENT: Atraumatic, PERRLA, EOMI, Mucous membr. moist/pink Respiratory: Normal air movement, Other (Diminished breath sounds) Cardiovascular: Regular rate, Normal S1, Normal S2, No murmurs Abdominal: Normal bowel sounds, Soft, No tenderness, No hepatospenomegaly, No masses Extremities: No clubbing, No cyanosis, No edema, Normal pulses, No tenderness/swelling Skin: No rashes, No breakdown, No significant lesion Neuro: Normal speech, Normal tone, Sensation intact, Cranial nerves 3-12 NL, Reflexes 2+, Other (Generalized weakness) Psych/Mental Status: Mental status NL, Mood NL Labs/Xrays Labs Test 04/01/24 02:50 04/01/24 02:07 04/01/24 00:03 03/31/24 15:44 Range/Units Troponin I High Sensitivity 7 </=54 ng/L Thyroid Stimulating Hormone (TSH) 2.97 0.55-4.78 uIU/mL POC Glucose 207 H 70-106 mg/dl White Blood Count 13.7 H 4.4-10.8 10^3/uL Red Blood Count 3.38 L 4.5-5.90 10^6/uL Hemoglobin 10.8 L 13.5-17.5 g/dL Hematocrit 32.4 #L 41.0-53.0 % Mean Corpuscular Volume 95.8 80.0-100.0 fL Mean Corpuscular Hemoglobin 32.0 28.0-32.0 pg Mean Corpuscular Hemoglobin Concent 33.4 32.0-36.0 g/dL Red Cell Distribution Width 15.5 H 11.8-14.3 % Platelet Count 355 140-450 10^3/uL Mean Platelet Volume 9.1 6.9-10.8 fL Neutrophils (%) (Auto) 37.0-80.0 % Lymphocytes (%) (Auto) 10.0-50.0 % Monocytes (%) (Auto) 0.0-12.0 % Basophils (%) (Auto) 0.0-2.0 % Neutrophils # (Auto) 1.6-8.6 10 ^3/uL Lymphocytes # (Auto) 0.4-5.4 10 ^3/uL Monocytes # (Auto) 0-1.3 10 ^3/uL Differential Total Cells Counted 100.0 100 Neutrophils % (Manual) 89 H 37.0-80.0 Band Neutrophils % (Manual) 3 Lymphocytes % (Manual) 8 L 10.0-50.0 Monocytes % (Manual) 0 0-12 Eosinophils % (Manual) 0 0-7 Basophils % (Manual) 0 0.0-2.0 Metamyelocytes % (manual) 0 Myelocytes % (Manual) 0 Promyelocytes % (Manual) 0 Blast Cells % (Manual) 0 Reactive Lymphocytes 0 Platelet Estimate Adequate Sodium Level 136 # 136-145 mmol/L Potassium Level 4.7 3.5-5.1 mmol/L Chloride Level 106 98-107 mmol/L Carbon Dioxide Level 21 20-31 mmol/L Anion Gap 9 5-15 Blood Urea Nitrogen 33 H 9-23 mg/dL Creatinine 1.27 0.700-1.30 mg/dL Glomerular Filtration Rate Calc 54 >90 mL/min BUN/Creatinine Ratio 26.0 H 10.0-20.0 Serum Glucose 184 H 74-106 mg/dL Calcium Level 9.3 8.7-10.4 mg/dL B-Type Natriuretic Peptide 125.51 0-100 pg/mL PATIENT: ZANDER UMANZOR PACCT: [id number] UNIT: [id number] : 1935 LOC: ER ROOM / BED: / AGE / SEX: 88 / M ADM STATUS: REG ER SERVICE [id number] ORDERING PHYSICIAN: ANNEMARIE CONCEPCION MD PROCEDURE(s): RLDVT - RT Lower DVT REASON: right leg pain ORDER NUMBER(s): [id number], ACCESSION NUMBER(s): [id number] RIGHT LOWER EXTREMITY VENOUS DOPPLER CLINICAL HISTORY: right leg pain TECHNIQUE: Right lower extremity venous doppler study was performed. COMPARISON: None FINDINGS: The right common femoral, superficial femoral, popliteal, posterior tibial veins appear patent with normal augmentation, phasicity, compressibility and color- flow. . IMPRESSION: 1. No sonographic evidence of DVT in the right leg. ORDERING PHYSICIAN: SHERLYN LEON MD PROCEDURE(s): CXR1 - CHEST XRAY 1 VIEW REASON: tachycardia ORDER NUMBER(s): [id number], ACCESSION NUMBER(s): [id number] CHEST RADIOGRAPH Indication: tachycardia Technique: Single frontal view of the chest was obtained Comparison: XY CHEST XRAY 1 VIEW on DOS: 03/27/24, XY CHEST PORTABLE on DOS: 03/27/24, XY CHEST PORTABLE on DOS: 03/25/24 Findings/ IMPRESSION: Small right-sided pleural effusion and/or atelectasis. Superimposed infection not excluded. Assessment/Plan Assessment/Plan Generalized weakness Atrial fibrillation Right leg pain Hyperglycemia Leukocytosis, unspecified Pneumonia, unspecified organisms Plan 1. Admit to telemetry unit 2. Breathing treatment 3. Pain control management 4. IV antibiotic management 5. Management of fluids and electrolytes 6. Consultation for cardiology 7. Diagnostic test chest x-ray 8. DVT prophylaxis-on Eliquis 9. Repeat labs CBC, CMP in a.m. 10. Home medication reviewed and reconciled 11. Continue with current medical management 12. Treatment plan discussed with patient and RN. Patient verbalized understanding. Plan discussed with: Patient, Other (RN) My Orders Orders - JAMA KENDALL DNP Procedure Category Date Status Time Atorvastatin (Lipitor) PHA 04/01/24 In Process 22:00 Piperacillin-Tazob PHA 04/01/24 In Process 3.375gm (Zosyn 3.375g 08:00 Levothyroxine Tablet PHA 04/01/24 In Process (Synthroid Tablet) 06:00 Allergies CORY 04/01/24 In Process 01:48 Code Status CODE 04/01/24 Transmitted 01:48 Sodium Chloride 0.9% PHA 04/01/24 In Process 02:00 Oxygen Per Hour RT 04/01/24 Transmitted 01:48 Hydrocodone-Acet PHA 04/01/24 In Process 5/325mg Tab ([place] 02:00 Ondansetron Hcl PHA 04/01/24 In Process (Zofran) 02:00 Docusate Sodium PHA 04/01/24 In Process Capsule (Colace 02:00 Fall Risk Precautions CORY 04/01/[address] 01:48 Complete Blood Count LAB 04/02/24 Verified 04:00 Comprehensive LAB 04/02/24 Verified Metabolic Panel 04:00 Cardiac DIET 04/01/24 Transmitted Diet-2gna,Lofat,Lochol Breakfast Condition: Serious CORY 04/01/24 In Process 01:48 Acetaminophen Tablet PHA 04/01/24 In Process (Tylenol Tablet) 02:00 Sequential CORY 04/01/24 In Process Compression Device Apixaban (Eliquis) PHA 04/01/24 In Process 10:00 Problem List: (1) Generalized weakness (2) Right leg pain (3) Atrial fibrillation (4) Hyperglycemia (5) Leukocytosis, unspecified (6) Pneumonia, unspecified organism Date of Service: Apr 01, 2024 Billing Provider: JAMA KENDALL DNP Common Visit Codes: [id number] INP/OBS CARE (HIGH) JAMA KENDALL DNP Apr 01, 2024 03:12
[2024-04-01] MEDS ORDERED: MORPHINE SULFATE INJ 2 MG/ml SYRG IV PRN (03:15)
[2024-04-01] MEDS ORDERED: NITROGLYCERIN 0.4 MG SL TAB SL PRN (03:15)
[2024-04-01] MEDS: LEVOTHYROXINE SODIUM 25 MCG TAB PO SCH (06:35)
--- NOTE | 2024-04-01 07:11 | ECG ---
[facility] Test Date: 2024-04-01 Test Time: 00:10:06 Pat Name: ZANDER UMANZOR Department: ER Room: 0246T A Gender: M Buggyman: JON : 1935 Requested By: ANNEMARIE CONCEPCION Order Number: [id number] Reading MD: Kleber Griffin Measurements Intervals [place] Rate: 108 P: 0 DE: 0 QRS: 12 QRSD: 83 T: 0 QT: 348 QTc: 467 Interpretive Statements Atrial fibrillation Low voltage, extremity leads Electronically Signed On 04-01-2024 13:14:30 PST by Kleber Griffin Please click the below link to view image of tracing.
[2024-04-01] MEDS: PIPERACILLIN-TAZOB 3.375GM 100 ML IV SCH (08:36)
[2024-04-01] MEDS ORDERED: APIXABAN 2.5 MG TAB PO SCH (10:00)
--- NOTE | 2024-04-01 10:26 | DVHPN2 ---
Subjective Came for right leg pain Changes from previous H/P or p: Changes Eyes: No Pain, No Vision change, No Conjunctivae inflammation, No Eyelid inflammation, No Other, No Redness ENT: No Ear pain, No Ear discharge, No Nose pain, No Nose discharge, No Nose congestion, No Mouth pain, No Mouth swelling, No Throat pain, No Throat swelling, No Other Cardiovascular: No Chest Pain, No Palpitations, No Orthopnea, No Paroxysmal Noc. Dyspnea, No Edema, No Lt Headedness; Other (Atrial fibrillation) Respiratory: No Cough, No Dry, No Shortness of breath, No SOB with excertion, No Wheezing, No Hemoptysis, No Pleuritic Pain, No Sputum, No Other Gastrointestinal: No Nausea, No Vomiting, No Abdominal Pain, No Diarrhea, No Constipation, No Melena, No Hematochezia, No Other Genitourinary: No Dysuria, No Frequency, No Incontinence, No Hematuria, No Retention, No Other Musculoskeletal: other (Right leg pain); No neck pain, No shoulder pain, No arm pain, No back pain, No hand pain, No leg pain, No foot pain Skin: No Rash, No Lesions, No Jaundice, No Bruising, No Other Objective Vitals Vital Signs Date Time Temp Pulse Resp B/P (MAP) Pulse Ox O2 Delivery O2 Flow Rate FiO2 04/01/24 09:00 97.8 79 16 108/53 (71) 93 97.8 04/01/24 08:05 Nasal Cannula* 3 32 Intake/Output Intake and Output 04/01/24 07:00 Intake Total 1280 ml Balance 1280 ml Intake IV Total 1280 ml General Appearance: Alert, Oriented X3, Cooperative, mild distress Lungs: Clear to auscultation, Normal air movement Cardiovascular: Regular rate, Normal S1, Normal S2 Abdomen: Normal bowel sounds, Soft, No tenderness Extremities: Other (1+ edema B) Medications Current Medications Medications Dose Ordered Sig/Renan Route Start Time Stop Time Status Last Admin Dose Admin Atorvastatin Calcium 20 mg HS PO 04/01/24 22:00 Piperacillin Sod/ Tazobactam Sod 100 ml @ 25 mls/hr Q8H IV 04/01/24 08:00 04/01/24 08:36 25 MLS/HR Levothyroxine Sodium 75 mcg QAM@0600 PO 04/01/24 06:00 04/01/24 06:35 75 MCG Apixaban 2.5 mg BID PO 04/01/24 10:00 UNV Sodium Chloride 1,000 ml @ 60 mls/hr [id number] IV 04/01/24 02:00 04/01/24 02:15 60 MLS/HR Acetaminophen/ Hydrocodone Bitart 1 tab Q4HP PRN PO 04/01/24 02:00 Ondansetron HCl 4 mg Q4HP PRN IV 04/01/24 02:00 Docusate Sodium 100 mg BIDPRN PRN PO 04/01/24 02:00 Acetaminophen 650 mg Q6HP PRN PO 04/01/24 02:00 Apixaban 5 mg BID PO 04/01/24 10:00 Nitroglycerin 0.4 mg Q5MINP PRN SL 04/01/24 03:15 Morphine Sulfate 2 mg Q30M PRN IV 04/01/24 03:15 Laboratory Results Laboratory Tests 03/31/24 15:44 Chemistry Test 03/31/24 15:44 Calcium Level 9.3 mg/dL (8.7-10.4) Cardiac Markers Test 03/31/24 15:44 B-Type Natriuretic Peptide 125.51 pg/mL (0-100) HgA1c, TSH Test 04/01/24 02:07 Thyroid Stimulating Hormone (TSH) 2.97 uIU/mL (0.55-4.78) Assessment/Plan Assessment/Plan Weakness Hypothyroidism Afib Recent pneumonia COPD CAD h/o CABG Diastolic HF Mixed hyperlipidemia Obesity PLAN: Physical therapy DC IV fluids Lasix Zosyn IV Eliquis Lipitor Plan discussed with: Patient My Orders Orders - SHANE FULTON MD Procedure Category Date Status Time Pt Request For Service PT 04/01/24 Logged 09:09 Complete Blood Count LAB 04/01/24 Logged 09:09 Comprehensive LAB 04/01/24 Logged Metabolic Panel 09:09 Magnesium LAB 04/01/24 Logged 09:09 Date of Service: Apr 01, 2024 Billing Provider: SHANE FULTON MD Common Visit Codes: NOT BILLABLE SHANE FULTON MD Apr 01, 2024 10:26
[2024-04-01] MEDS: APIXABAN 2.5 MG TAB PO SCH (10:47)
[2024-04-01] MEDS: HYDROcodone-ACET 5/325MG TAB PO PRN (10:59)
[2024-04-01 11:15] LABS: Basophils # (auto) 0 10 ^3/uL (0-0.2); Basophils % (auto) 0.1 % (0.0-2.0); Eosinophils # (auto) 0 10 ^3/uL (0-0.8); Lymphocytes # (auto) 1.9 10 ^3/uL (0.4-5.4); Monocytes # (auto) 1.4 10 ^3/uL (0-1.3); White Blood Cell 19.8 10^3/uL (4.4-10.8)
[2024-04-01 11:19] LABS: Eosinophils % (auto) 0.1 % (0.0-7.0); Hematocrit 22.8 % (41.0-53.0); Hemoglobin 7.5 g/dL (13.5-17.5); Lymphocytes % (auto) 9.8 % (10.0-50.0); Mean Corpuscular Hemoglobin 31.9 pg (28.0-32.0); Mean Corpuscular Volume 96.5 fL (80.0-100.0); Monocytes % (auto) 7.2 % (0.0-12.0); Neutrophils # (auto) 16.4 10 ^3/uL (1.6-8.6); Neutrophils % (auto) 82.8 % (37.0-80.0); Nucleated Red Blood Cells % 0.1 %; Platelet Count (auto) 307 10^3/uL (140-450); Red Blood Cells 2.37 10^6/uL (4.5-5.90); Red Cell Distribution Width 15.5 % (11.8-14.3)
[2024-04-01 11:21] LABS: Alkaline Phosphatase 83 U/L (46-116); Anion Gap 9 (5-15); BUN/Creatinine Ratio 25.2 (10.0-20.0); Carbon Dioxide 21 mmol/L (20-31); Magnesium 2.1 mg/dL (1.6-2.6); Potassium 4.4 mmol/L (3.5-5.1); Sodium 140 mmol/L (136-145)
[2024-04-01 11:22] LABS: Bilirubin, Total 0.5 mg/dL (0.2-1.0)
[2024-04-01 11:24] LABS: Alanine Aminotransferase 149 U/L (7-40); Albumin 2.8 g/dL (3.2-4.8); Aspartate Aminotransferase 74 U/L (13-40); Blood Urea Nitrogen 36 mg/dL (9-23); Calcium 8.6 mg/dL (8.7-10.4); Chloride 110 mmol/L (98-107); Glucose 132 mg/dL (74-106)
[2024-04-01 11:32] LABS: Lactic Acid w/Reflex 3.2 mmol/L (0.4-2.0)
[2024-04-01 19:56] LABS: Urine Bacteria FEW /hpf (None Seen); Urine Blood Negative /uL (Negative); Urine Clarity Clear (Clear); Urine Color Yellow (Yellow); Urine Protein, UAD TRACE (Negative); Urine Specific Gravity 1.027 (1.001-1.035); Urine Squamous Epithelial Cell FEW /hpf (<5); Urine Urobilinogen Normal (Negative); Urine WBC 2 /hpf (0 - 3); Urine pH 5.5 (5.0-9.0)
[2024-04-01] MEDS: FUROSEMIDE 40 MG/4 ML VIAL IV ONE (20:04)
[2024-04-01] MEDS: ATORVASTATIN 20 MG TAB PO SCH (21:31)
[2024-04-01] MEDS: TERAZOSIN HCL 1 MG CAP PO SCH (21:31)
[2024-04-01] MEDS: CARVEDILOL 3.125 MG TAB PO SCH (21:32)
--- NOTE | 2024-04-01 23:31 | DVHINCON2 ---
Date of service: Apr 01, 2024 Referring Physician Matthew Hills MD Reason for Consultation Pneumonia, pleural effusion. History of Present Illness An 88-year-old man with past medical history of prostate cancer, Coronary artery disease, COPD, hypertension, and hyperlipidemia who presented to ED on 03/31/24 with complaint of right lower extremity pain and swelling. Patient reports pain progressively got worse, unable to bear weight on his right foot, getting worse that prompted this visit. Note, pt was recently discharged with diagnosis of AFib and pneumonia. ED workup shows WBC 13.7, hemoglobin 10.8, hematocrit 32.4, platelets 355, sodium 136, potassium 4.7, BUN 33, creatinine 1.27, GFR 54, glucose 184, troponin 5, lactic acid 5.8 trending down to 3.6. EKG showed AFib with RVR at a rate of 108, normal QRS interval, QTC 467, left axis deviation, possible old inferior or anteroseptal infarct, nonspecific T changes. Extremity venous study shows no sonographic evidence of DVT in the right leg. CXR showed small right- sided pleural effusion and/or atelectasis, superimposed infection not excluded. Patient was admitted for further care and pulmonary consultation is requested for evaluation and management of pneumonia, pleural effusion. Review of Systems: 14-point review of systems negative unless otherwise noted above. Past Medical History: AFib, CAD, Cancer (prostate), COPD, High Lipids, HTN Past Surgical History: CABG, PTCA Medications: Reviewed. Allergies: No known drug allergies. Family History: No family history of premature CAD. No family history of lung disorders. Social History: Nonsmoker. No alcohol or illicit drug use. Family History: FH: myocardial infarction FATHER Family member MOTHER FATHER Glaucoma Allergies: Coded Allergies: NO KNOWN ALLERGIES (Unverified , 04/17/17) Home Meds Active Scripts Doxycycline Monohydrate (Doxycycline Monohydrate) 100 Mg Cap, 1 CAP PO BID, #20 CAP Prov:MATTHEW HILLS MD 03/30/24 Methylprednisolone (Medrol Dosepak) 4 Mg Attila, 4 MG PO UD, #21 TAB UAD Prov:MATTHEW HILLS MD 03/30/24 Reported Medications Ezetimibe (Zetia) 10 Mg Tab, 1 TAB PO DAILY for 90 Days, #90 03/28/24 Furosemide (Furosemide) 20 Mg Tab, 1 TAB PO 3XW for 84 Days, #36 TAKE 1 TABLET BY MOUTH 3 TIMES A WEEK. 03/28/24 Amlodipine Besylate (Amlodipine Besylate) 5 Mg Tab, 1 TAB PO DAILY for 90 Days, #90 03/28/24 Carbamazepine (Carbamazepine) 200 Mg Tab, 1 TAB PO BID for 30 Days, #60 03/26/24 Bicalutamide (Bicalutamide) 50 Mg Tab, 1 TAB PO DAILY for 90 Days, #90 03/26/24 Fluticasone Propionate (Nasal) (Fluticasone Propionate) 50 Mcg/Act Spr, 1 SPRAY NATALIA DAILY for 60 Days, #16 03/26/24 Metoprolol Tartrate (Lopressor) 25 Mg Tb, 0.5 TAB PO DAILY for 90 Days, #45 03/26/24 Terazosin Hcl (Terazosin Hcl) 2 Mg Cap, 1 CAP PO HS for 90 Days, #90 03/26/24 Ketoconazole (Ketoconazole) 2 % Cre, 1 TOP DAILY for 30 Days, #30 03/26/24 Losartan Potassium (Losartan Potassium) 25 Mg Tab, 1 TAB PO DAILY for 90 Days, #90 03/26/24 Apixaban Base (ELIQUIS) 2.5 Mg Tab, 1 TAB PO BID for 30 Days, #60 03/26/24 Brimonidine Tartrate (Brimonidine Tartrate) 0.2 % Delaney, 1 DROP LEFTEYE BID for 75 Days, #10 03/26/24 Rosuvastatin Calcium (Rosuvastatin Calcium) 40 Mg Tab, 1 TAB PO HS for 90 Days, #90 03/26/24 Ferrous Sulfate (Ferosul) 325 Mg Tab, 1 TAB PO 3XW for 91 Days, #39 TAKE 1 TABLET BY MOUTH 3 TIMES A WEEK. 03/26/24 Levothyroxine Sodium (Levothyroxine Sodium) 75 Mcg Tab, 1 TAB PO DAILY for 90 Days, #90 03/26/24 Budesonide (Inhalation) (Budesonide) 0.5 Mg/2 Ml Viviana, 0.5 MG IN BID 04/17/17 Nitroglycerin (NTROSTAT SUBLINGUAL) 0.4 Mg Sl, 0.4 MG SL PRN for 30 Days, #100 *MAY REPEAT EVERY 5 MINUTES X 3 TOTAL IF NO RELIEF, INITIATE ANALGESIC THERAPY. NOTIFY PHYSICIAN *Do not crush. 04/17/17 Latanoprost (LATANOPROST) 0.005 % Delaney, 1 DROP EACHEYE BID for 68 Days, #9 04/17/17 Current Medications Current Medications Medications (Trade) Dose Ordered Sig/Renan Route PRN Reason Start Time Stop Time Status Last Admin Atorvastatin Calcium (Lipitor) 20 mg HS PO 04/01/24 22:00 04/01/24 21:31 Piperacillin Sod/ Tazobactam Sod 100 ml @ 25 mls/hr Q8H IV 04/01/24 08:00 04/01/24 20:04 Levothyroxine Sodium (Synthroid Tablet) 75 mcg QAM@0600 PO 04/01/24 06:00 04/01/24 06:35 Apixaban (Eliquis) 2.5 mg BID PO 04/01/24 10:00 UNV Sodium Chloride 1,000 ml @ 60 mls/hr [id number] IV 04/01/24 02:00 04/01/24 18:16 DC 04/01/24 02:15 Acetaminophen/ Hydrocodone Bitart ([place] 5/325MG Tab) 1 tab Q4HP PRN PO MODERATE PAIN (4-6 PAIN SCALE) 04/01/24 02:00 04/01/24 21:30 Ondansetron HCl (Zofran) 4 mg Q4HP PRN IV NAUSEA / VOMITING 04/01/24 02:00 Docusate Sodium (Colace Capsule) 100 mg BIDPRN PRN PO FOR CONSTIPATION 04/01/24 02:00 Acetaminophen (Tylenol Tablet) 650 mg Q6HP PRN PO PAIN SCALE 1-3 OR TEMP>100.4 04/01/24 02:00 Apixaban (Eliquis) 5 mg BID PO 04/01/24 10:00 04/01/24 21:30 Nitroglycerin (Ntrostat Sublingual) 0.4 mg Q5MINP PRN SL FOR CHEST PAIN 04/01/24 03:15 Morphine Sulfate 2 mg Q30M PRN IV FOR CHEST PAIN 04/01/24 03:15 Furosemide (Lasix Injection) 40 mg DAILY IV 04/02/24 10:00 Terazosin HCl (Hytrin) 2 mg HS PO 04/01/24 22:00 04/01/24 21:31 Carvedilol (Coreg Tablet) 3.125 mg Q12HR PO 04/01/24 22:00 04/01/24 21:32 Vital Signs Vital Signs Date Time Temp Pulse Resp B/P (MAP) Pulse Ox O2 Delivery O2 Flow Rate FiO2 04/01/24 21:32 92 147/85 04/01/24 21:00 98.8 18 100 98.8 04/01/24 20:00 Nasal Cannula* 2 28 Physical Exam Gen.: Patient lying in bed in no apparent distress. On supplemental oxygen. Head: Normocephalic, atraumatic. Eyes: EOMI/PERRLA. Ears: Normal hearing. Normal anatomy. Neck/trachea: Trachea midline, supple. Nose: Normal external anatomy. Mouth: Moist mucous membranes. Chest: Decreased air entry bilaterally. No wheezing or rhonchi. Cardiovascular: Positive S1, positive S2. Regular rate and rhythm. Abdomen: Positive bowel sounds in all 4 quadrants. Soft, non-tender, non- distended. : Deferred. Rectal: Deferred. Skin: Warm, dry. Intact. Extremities: 2+ radial pulses bilaterally. No lower extremity edema. Neuro: Awake, alert, oriented x3. No gross motor or sensory deficits. Cranial nerves II through XII intact. Gait not assessed. Labs/Diagnostic Data Labs Test 04/01/24 19:30 04/01/24 12:21 04/01/24 10:00 04/01/24 06:25 Range/Units Urine Color Yellow Yellow Urine Clarity Clear Clear Urine pH 5.5 5.0-9.0 Urine Specific [place] 1.027 1.001-1.035 Urine Protein Trace H Negative Urine Ketones 1+ H Negative Urine Blood Negative Negative /uL Urine Nitrite Negative Negative Urine Bilirubin Negative Negative Urine Urobilinogen Normal Negative mg/dL Urine Leukocyte Esterase Negative Negative /uL Urine RBC 1 0 - 3 /hpf Urine WBC 2 0 - 3 /hpf Urine Squamous Epithelial Cells Few <5 /hpf Urine Bacteria Few H None Seen /hpf Urine Glucose Normal Normal mg/dL Lactic Acid Level 1.9 0.4-2.0 mmol/L White Blood Count 19.8 #H 4.4-10.8 10^3/uL Red Blood Count 2.37 L 4.5-5.90 10^6/uL Hemoglobin 7.5 #L 13.5-17.5 g/dL Hematocrit 22.8 #L 41.0-53.0 % Mean Corpuscular Volume 96.5 80.0-100.0 fL Mean Corpuscular Hemoglobin 31.9 28.0-32.0 pg Mean Corpuscular Hemoglobin Concent 33.0 32.0-36.0 g/dL Red Cell Distribution Width 15.5 H 11.8-14.3 % Platelet Count 307 140-450 10^3/uL Mean Platelet Volume 9.2 6.9-10.8 fL Neutrophils (%) (Auto) 82.8 H 37.0-80.0 % Lymphocytes (%) (Auto) 9.8 L 10.0-50.0 % Monocytes (%) (Auto) 7.2 0.0-12.0 % Eosinophils (%) (Auto) 0.1 0.0-7.0 % Basophils (%) (Auto) 0.1 0.0-2.0 % Neutrophils # (Auto) 16.4 H 1.6-8.6 10 ^3/uL Lymphocytes # (Auto) 1.9 0.4-5.4 10 ^3/uL Monocytes # (Auto) 1.4 H 0-1.3 10 ^3/uL Eosinophils # (Auto) 0 0-0.8 10 ^3/uL Basophils # (Auto) 0 0-0.2 10 ^3/uL Nucleated Red Blood Cells 0.1 % Sodium Level 140 136-145 mmol/L Potassium Level 4.4 3.5-5.1 mmol/L Chloride Level 110 H 98-107 mmol/L Carbon Dioxide Level 21 20-31 mmol/L Anion Gap 9 5-15 Blood Urea Nitrogen 36 H 9-23 mg/dL Creatinine 1.43 H 0.700-1.30 mg/dL Glomerular Filtration Rate Calc 47 >90 mL/min BUN/Creatinine Ratio 25.2 H 10.0-20.0 Serum Glucose 132 H 74-106 mg/dL Calcium Level 8.6 L 8.7-10.4 mg/dL Magnesium Level 2.1 1.6-2.6 mg/dL Total Bilirubin 0.5 0.2-1.0 mg/dL Aspartate Amino Transferase (AST) 74 H 13-40 U/L Alanine Aminotransferase (ALT) 149 H 7-40 U/L Alkaline Phosphatase 83 46-116 U/L Total Protein 5.0 L 5.7-8.2 g/dL Albumin 2.8 L 3.2-4.8 g/dL POC Glucose 119 H 70-106 mg/dl Test 04/01/24 03:50 04/01/24 02:07 03/31/24 15:44 Range/Units Troponin I High Sensitivity 7 </=54 ng/L Thyroid Stimulating Hormone (TSH) 2.97 0.55-4.78 uIU/mL Differential Total Cells Counted 100.0 100 Neutrophils % (Manual) 89 H 37.0-80.0 Band Neutrophils % (Manual) 3 Lymphocytes % (Manual) 8 L 10.0-50.0 Monocytes % (Manual) 0 0-12 Eosinophils % (Manual) 0 0-7 Basophils % (Manual) 0 0.0-2.0 Metamyelocytes % (manual) 0 Myelocytes % (Manual) 0 Promyelocytes % (Manual) 0 Blast Cells % (Manual) 0 Reactive Lymphocytes 0 Platelet Estimate Adequate B-Type Natriuretic Peptide 125.51 0-100 pg/mL Microbiology Date/Time Source Procedure Growth Status 04/01/24 06:28 Nose MRSA Screen - Final Complete Assessment Impression: Pneumonia, likely gram negative Dependence on supplemental oxygen Atrial fibrillation Pleural effusion Atelectasis Anemia, symptomatic Plan: Supplemental oxygen 3 LPM NC Titrate to keep O2 sats above 92%. Taper O2 as tolerated. Continue antibiotics Incentive spirometry Eliquis Diurese to euvolemia w/ Lasix QD Monitor renal function. Monitor electrolytes. Supplement as necessary. Monitor ins and outs. Obtain PT/INR Plan for right thoracentesis to evacuate right pleural effusion. DVT prophylaxis. Prognosis: Poor given patient's multiple co-morbidities. Rest of plan per hospitalist and other consultants. Thank you, Dr. Hills, for allowing me to participate in this patient's care. Further recommendations will depend on the patient's clinical course. Please do not hesitate to contact me if you have any questions or concerns. This medical document was created using an electronic medical record system with [employer] dictation system. Although these documentations are being carefully reviewed, there may still be some phonetic and typographical changes. The errors are purely typographical, due to imperfection on the software program, and do not reflect any compromise in the patient's medical care. Plan discussed with: Patient, Other (KIYA Kaplan/MD Hills) ANGELA THURSTON MD Apr 01, 2024 23:31
[2024-04-02] VITALS (12 sets, daily range): BP systolic 80–158; BP diastolic 43–69; PULSE 69–95; RESP 12–19; TEMP 97–98.8; O2SAT 97–100
[2024-04-02 06:40] LABS: Basophils # (auto) 0 10 ^3/uL (0-0.2); Eosinophils # (auto) 0 10 ^3/uL (0-0.8); Hematocrit 19.9 % (41.0-53.0); Lymphocytes # (auto) 1.7 10 ^3/uL (0.4-5.4)
[2024-04-02 06:45] LABS: Basophils % (auto) 0.2 % (0.0-2.0); Eosinophils % (auto) 0.3 % (0.0-7.0); Lymphocytes % (auto) 13.2 % (10.0-50.0); Mean Corpuscular Hemoglobin 31.8 pg (28.0-32.0); Mean Corpuscular Hgb Conc. 33.2 g/dL (32.0-36.0); Mean Corpuscular Volume 95.7 fL (80.0-100.0); Monocytes # (auto) 0.9 10 ^3/uL (0-1.3); Monocytes % (auto) 7.3 % (0.0-12.0); Neutrophils # (auto) 10.2 10 ^3/uL (1.6-8.6); Nucleated Red Blood Cells % 0.2 %; Platelet Count (auto) 259 10^3/uL (140-450); Red Blood Cells 2.08 10^6/uL (4.5-5.90); White Blood Cell 12.9 10^3/uL (4.4-10.8)
[2024-04-02 06:54] LABS: INR 1.3 (0.9-1.15); Prothrombin Time 13.5 sec (9.3-11.8)
[2024-04-02 07:03] LABS: Alkaline Phosphatase 80 U/L (46-116); Anion Gap 7 (5-15); BUN/Creatinine Ratio 25.4 (10.0-20.0); Carbon Dioxide 26 mmol/L (20-31); Glucose 106 mg/dL (74-106); Potassium 3.9 mmol/L (3.5-5.1); Sodium 141 mmol/L (136-145)
[2024-04-02 07:05] LABS: Bilirubin, Total 0.6 mg/dL (0.2-1.0)
[2024-04-02 07:13] LABS: Alanine Aminotransferase 129 U/L (7-40); Albumin 2.8 g/dL (3.2-4.8); Aspartate Aminotransferase 73 U/L (13-40); Blood Urea Nitrogen 36 mg/dL (9-23); Calcium 8.6 mg/dL (8.7-10.4); Chloride 108 mmol/L (98-107)
[2024-04-02 07:31] LABS: Hemoglobin 6.6 g/dL (13.5-17.5)
--- NOTE | 2024-04-02 08:58 | DVHPN2 ---
Subjective No new complaints Hb dropped to 6.6 No bleeding No abd pain or hematemesis or melena Changes from previous H/P or p: Changes Eyes: No Pain, No Vision change, No Conjunctivae inflammation, No Eyelid inflammation, No Other, No Redness ENT: No Ear pain, No Ear discharge, No Nose pain, No Nose discharge, No Nose congestion, No Mouth pain, No Mouth swelling, No Throat pain, No Throat swelling, No Other Cardiovascular: No Chest Pain, No Palpitations, No Orthopnea, No Paroxysmal Noc. Dyspnea, No Edema, No Lt Headedness; Other (Atrial fibrillation) Respiratory: No Cough, No Dry, No Shortness of breath, No SOB with excertion, No Wheezing, No Hemoptysis, No Pleuritic Pain, No Sputum, No Other Gastrointestinal: No Nausea, No Vomiting, No Abdominal Pain, No Diarrhea, No Constipation, No Melena, No Hematochezia, No Other Genitourinary: No Dysuria, No Frequency, No Incontinence, No Hematuria, No Retention, No Other Musculoskeletal: other (Right leg pain); No neck pain, No shoulder pain, No arm pain, No back pain, No hand pain, No leg pain, No foot pain Skin: No Rash, No Lesions, No Jaundice, No Bruising, No Other Objective Vitals Vital Signs Date Time Temp Pulse Resp B/P (MAP) Pulse Ox O2 Delivery O2 Flow Rate FiO2 04/02/24 05:00 98.8 71 19 99/51 (67) 99 98.8 04/01/24 20:00 Nasal Cannula* 2 28 Intake/Output Intake and Output 04/02/24 07:00 Intake Total 1310 ml Output Total 2120 ml Balance -810 ml Intake Oral 250 ml IV Total 1060 ml Output Urine Total 2120 ml General Appearance: Alert, Oriented X3, Cooperative, mild distress Lungs: Clear to auscultation, Normal air movement Cardiovascular: Regular rate, Normal S1, Normal S2 Abdomen: Normal bowel sounds, Soft, No tenderness Extremities: Other (1+ edema B) Medications Current Medications Medications Dose Ordered Sig/Renan Route Start Time Stop Time Status Last Admin Dose Admin Atorvastatin Calcium 20 mg HS PO 04/01/24 22:00 04/01/24 21:31 20 MG Piperacillin Sod/ Tazobactam Sod 100 ml @ 25 mls/hr Q8H IV 04/01/24 08:00 04/02/24 00:00 25 MLS/HR Levothyroxine Sodium 75 mcg QAM@0600 PO 04/01/24 06:00 04/02/24 05:55 75 MCG Apixaban 2.5 mg BID PO 04/01/24 10:00 UNV Acetaminophen/ Hydrocodone Bitart 1 tab Q4HP PRN PO 04/01/24 02:00 04/02/24 06:24 1 TAB Ondansetron HCl 4 mg Q4HP PRN IV 04/01/24 02:00 Docusate Sodium 100 mg BIDPRN PRN PO 04/01/24 02:00 Acetaminophen 650 mg Q6HP PRN PO 04/01/24 02:00 Apixaban 5 mg BID PO 04/01/24 10:00 04/01/24 21:30 5 MG Nitroglycerin 0.4 mg Q5MINP PRN SL 04/01/24 03:15 Morphine Sulfate 2 mg Q30M PRN IV 04/01/24 03:15 Furosemide 40 mg DAILY IV 04/02/24 10:00 Terazosin HCl 2 mg HS PO 04/01/24 22:00 04/01/24 21:31 2 MG Carvedilol 3.125 mg Q12HR PO 04/01/24 22:00 04/01/24 21:32 3.125 MG Laboratory Results Laboratory Tests 04/02/24 05:37 Chemistry Test 04/01/24 10:00 04/02/24 05:37 Albumin 2.8 g/dL (3.2-4.8) L 2.8 g/dL (3.2-4.8) L Calcium Level 8.6 mg/dL (8.7-10.4) L 8.6 mg/dL (8.7-10.4) L Magnesium Level 2.1 mg/dL (1.6-2.6) 2.0 mg/dL (1.6-2.6) Total Protein 5.0 g/dL (5.7-8.2) L 5.0 g/dL (5.7-8.2) L Coagulation Test 04/02/24 05:37 Prothrombin Time 13.5 sec (9.3-11.8) H Prothrombin Time INR 1.30 (0.9-1.15) H LFT Test 04/01/24 10:00 04/02/24 05:37 Alanine Aminotransferase (ALT) 149 U/L (7-40) H 129 U/L (7-40) H Alkaline Phosphatase 83 U/L (46-116) 80 U/L (46-116) Aspartate Amino Transferase (AST) 74 U/L (13-40) H 73 U/L (13-40) H Total Bilirubin 0.5 mg/dL (0.2-1.0) 0.6 mg/dL (0.2-1.0) Urinalysis Test 04/01/24 19:30 Urine Color Yellow (Yellow) Urine Clarity Clear (Clear) Urine pH 5.5 (5.0-9.0) Urine Specific [place] 1.027 (1.001-1.035) Urine Protein Trace (Negative) H Urine Ketones 1+ (Negative) H Urine Blood Negative /uL (Negative) Urine Nitrite Negative (Negative) Urine Bilirubin Negative (Negative) Urine Urobilinogen Normal mg/dL (Negative) Urine Leukocyte Esterase Negative /uL (Negative) Urine RBC 1 /hpf (0 - 3) Urine WBC 2 /hpf (0 - 3) Urine Squamous Epithelial Cells Few /hpf (<5) Urine Bacteria Few /hpf (None Seen) H Urine Glucose Normal mg/dL (Normal) Microbiology Microbiology Date/Time Source Procedure Growth Status 04/01/24 06:28 Nose MRSA Screen - Final Complete 04/01/24 00:25 Blood Blood Culture - Preliminary NO GROWTH AFTER 24 HOURS OF INCUBATION. Resulted Assessment/Plan Assessment/Plan Generalized weakness CKD Hypothyroidism Afib Recent pneumonia COPD CAD h/o CABG Diastolic HF Mixed hyperlipidemia Obesity Anemia, acute on chronic, most likely due to CKD PLAN: 04/01/24: Physical therapy DC IV fluids Lasix Zosyn IV Eliquis Lipitor 04/02/24: DC IV fluids Increase Lasix to 40 mg bid Transfuse 1 units RBCs Check occult blood in stools Thoracentesis per Dr. Mckeon Hold Eliquis Physical therapy Zosyn for PNA Protonix Plan discussed with: Patient My Orders Orders - SHANE FULTON MD Procedure Category Date Status Time Pt Request For Service PT 04/01/24 Logged 09:09 * Swallow Request ST 04/01/24 Transmitted 12:04 Mechanical Soft Diet DIET 04/01/24 Transmitted Dinner Furosemide Injection PHA 04/02/24 In Process (Lasix Injection) 10:00 Date of Service: Apr 02, 2024 Billing Provider: SHANE FULTON MD Common Visit Codes: NOT BILLABLE SHANE FULTON MD Apr 02, 2024 08:58
[2024-04-02] MEDS: FUROSEMIDE 40 MG/4 ML VIAL IV SCH (10:00)
[2024-04-02] MEDS ORDERED: FUROSEMIDE 40 MG/4 ML VIAL IV SCH (10:00)
[2024-04-02] MEDS: PANTOPRAZOLE 40 MG/10 ML VIAL INJ IV SCH (10:12)
--- NOTE | 2024-04-02 18:21 | DVHPN2 ---
Progress Note - Dictate Date Seen: Apr 02, 2024 Medical Necessity Reason Pt with a Central, PICC or Fol: Yes The following are medically ne: Khan Catheter Reason for khan catheter: Strict I&O Subjective Patient seen and examined at bedside. Remains on supplemental oxygen Overnight events reviewed. vital signs Vital Sign Date Time Temp Pulse Resp B/P (MAP) Pulse Ox O2 Delivery O2 Flow Rate FiO2 04/02/24 18:00 97.8 80 16 113/62 (79) 100 97.8 04/02/24 08:00 Nasal Cannula* 3 32 Total Intake and Output 04/01/24 04/01/24 04/02/24 15:00 23:00 07:00 Intake Total 100 ml 1010 ml 200 ml Output Total 520 ml 1600 ml Balance 100 ml 490 ml -1400 ml medications Current Medications Medications Dose Ordered Sig/Renan Route Start Time Stop Time Status Last Admin Dose Admin Atorvastatin Calcium 20 mg HS PO 04/01/24 22:00 04/01/24 21:31 20 MG Piperacillin Sod/ Tazobactam Sod 100 ml @ 25 mls/hr Q8H IV 04/01/24 08:00 04/02/24 10:12 25 MLS/HR Levothyroxine Sodium 75 mcg QAM@0600 PO 04/01/24 06:00 04/02/24 05:55 75 MCG Apixaban 2.5 mg BID PO 04/01/24 10:00 UNV Acetaminophen/ Hydrocodone Bitart 1 tab Q4HP PRN PO 04/01/24 02:00 04/02/24 06:24 1 TAB Ondansetron HCl 4 mg Q4HP PRN IV 04/01/24 02:00 Docusate Sodium 100 mg BIDPRN PRN PO 04/01/24 02:00 Acetaminophen 650 mg Q6HP PRN PO 04/01/24 02:00 Nitroglycerin 0.4 mg Q5MINP PRN SL 04/01/24 03:15 Morphine Sulfate 2 mg Q30M PRN IV 04/01/24 03:15 Terazosin HCl 2 mg HS PO 04/01/24 22:00 04/01/24 21:31 2 MG Carvedilol 3.125 mg Q12HR PO 04/01/24 22:00 04/01/24 21:32 3.125 MG Furosemide 40 mg BID IV 04/02/24 10:00 Pantoprazole Sodium 40 mg DAILY IV 04/02/24 10:00 04/02/24 10:12 40 MG objective Gen.: Patient lying in bed in no apparent distress. On supplemental oxygen. Head: Normocephalic, atraumatic. Eyes: EOMI/PERRLA. Ears: Normal hearing. Normal anatomy. Neck/trachea: Trachea midline, supple. Nose: Normal external anatomy. Mouth: Moist mucous membranes. Chest: Decreased air entry bilaterally. No wheezing or rhonchi. Cardiovascular: Positive S1, positive S2. Regular rate and rhythm. Abdomen: Positive bowel sounds in all 4 quadrants. Soft, non-tender, non- distended. : Deferred. Rectal: Deferred. Skin: Warm, dry. Intact. Extremities: 2+ radial pulses bilaterally. No lower extremity edema. Neuro: Awake, alert, oriented x3. No gross motor or sensory deficits. Cranial nerves II through XII intact. Gait not assessed. laboratory and microbiology Laboratory Tests 04/02/24 05:37 Test 04/02/24 05:37 Range/Units Serum Glucose 106 74-106 mg/dL Assessment/Plan Impression: Pneumonia, likely gram negative Dependence on supplemental oxygen Atrial fibrillation Pleural effusion Atelectasis Events: Remains on supplemental oxygen, 2 LPM NC Taper O2 as tolerated Pt received 1 unit PRBC Monitor hemoglobin CXR (04/01/24) demonstrated small right-sided pleural effusion and/or atelectasis. Right thoracentesis planned for evacuation of right pleural effusion. Obtain CXR post procedure to assess. Continue antibiotics Incentive spirometry PT/INR elevated Labs and imaging reviewed. Rest of plan as noted below. Plan: Supplemental oxygen Titrate to keep O2 sats above 92%. Continue antibiotics Incentive spirometry Diurese to euvolemia w/ Lasix QD - currently on hold for decreased blood pressure Monitor renal function. Monitor electrolytes. Supplement as necessary. Monitor ins and outs. Plan for right thoracentesis to evacuate right pleural effusion. DVT prophylaxis. Prognosis: Poor given patient's multiple co-morbidities. Rest of plan per hospitalist and other consultants. Thank you, Dr. Hills, for allowing me to participate in this patient's care. Further recommendations will depend on the patient's clinical course. Please do not hesitate to contact me if you have any questions or concerns. This medical document was created using an electronic medical record system with Dragon computerized dictation system. Although these documentations are being carefully reviewed, there may still be some phonetic and typographical changes. The errors are purely typographical, due to imperfection on the software program, and do not reflect any compromise in the patient's medical care. Plan discussed with: Patient, Other (KIYA Gregory) ANGELA THURSTON MD Apr 02, 2024 18:21
[2024-04-03] VITALS (11 sets, daily range): BP systolic 95–127; BP diastolic 44–83; PULSE 76–90; RESP 12–18; TEMP 95.9–97.4; O2SAT 97–100
[2024-04-03 06:24] LABS: Basophils # (auto) 0 10 ^3/uL (0-0.2); Eosinophils # (auto) 0.1 10 ^3/uL (0-0.8)
[2024-04-03 06:26] LABS: Eosinophils % (auto) 0.6 % (0.0-7.0); Hematocrit 22.9 % (41.0-53.0); Hemoglobin 7.6 g/dL (13.5-17.5); Lymphocytes # (auto) 1.3 10 ^3/uL (0.4-5.4); Lymphocytes % (auto) 11.4 % (10.0-50.0); Mean Corpuscular Hgb Conc. 33.4 g/dL (32.0-36.0); Monocytes # (auto) 0.7 10 ^3/uL (0-1.3); Monocytes % (auto) 6.1 % (0.0-12.0); Neutrophils % (auto) 81.9 % (37.0-80.0); Nucleated Red Blood Cells % 0.2 %; Platelet Count (auto) 220 10^3/uL (140-450); Red Blood Cells 2.46 10^6/uL (4.5-5.90); Red Cell Distribution Width 16.9 % (11.8-14.3)
[2024-04-03 06:48] LABS: Alkaline Phosphatase 75 U/L (46-116); Anion Gap 5 (5-15); Bilirubin, Total 0.8 mg/dL (0.2-1.0); Carbon Dioxide 29 mmol/L (20-31); Chloride 107 mmol/L (98-107); Glucose 93 mg/dL (74-106); Magnesium 1.9 mg/dL (1.6-2.6); Potassium 3.8 mmol/L (3.5-5.1); Sodium 141 mmol/L (136-145)
[2024-04-03 07:03] LABS: Alanine Aminotransferase 100 U/L (7-40); Albumin 2.8 g/dL (3.2-4.8); Aspartate Aminotransferase 63 U/L (13-40); Blood Urea Nitrogen 28 mg/dL (9-23); Calcium 8.5 mg/dL (8.7-10.4); Total Protein 4.9 g/dL (5.7-8.2)
--- NOTE | 2024-04-03 11:37 | DVHPN2 ---
Subjective Still c/o right thigh pain, also tender R hip Changes from previous H/P or p: Changes Eyes: No Pain, No Vision change, No Conjunctivae inflammation, No Eyelid inflammation, No Other, No Redness ENT: No Ear pain, No Ear discharge, No Nose pain, No Nose discharge, No Nose congestion, No Mouth pain, No Mouth swelling, No Throat pain, No Throat swelling, No Other Cardiovascular: No Chest Pain, No Palpitations, No Orthopnea, No Paroxysmal Noc. Dyspnea, No Edema, No Lt Headedness; Other (Atrial fibrillation) Respiratory: No Cough, No Dry, No Shortness of breath, No SOB with excertion, No Wheezing, No Hemoptysis, No Pleuritic Pain, No Sputum, No Other Gastrointestinal: No Nausea, No Vomiting, No Abdominal Pain, No Diarrhea, No Constipation, No Melena, No Hematochezia, No Other Genitourinary: No Dysuria, No Frequency, No Incontinence, No Hematuria, No Retention, No Other Musculoskeletal: other (Right leg pain); No neck pain, No shoulder pain, No arm pain, No back pain, No hand pain, No leg pain, No foot pain Skin: No Rash, No Lesions, No Jaundice, No Bruising, No Other Objective Vitals Vital Signs Date Time Temp Pulse Resp B/P (MAP) Pulse Ox O2 Delivery O2 Flow Rate FiO2 04/03/24 09:11 80 116/61 04/03/24 08:59 95.9 18 100 95.9 04/03/24 08:05 Nasal Cannula* 3 32 Intake/Output Intake and Output 04/03/24 07:00 Intake Total 630 ml Output Total 2050 ml Balance -1420 ml Intake Oral 250 ml IV Total 80 ml Blood Product 300 ml Output Urine Total 2050 ml Stool Total 0 ml General Appearance: Alert, Oriented X3, Cooperative, mild distress Lungs: Clear to auscultation, Normal air movement Cardiovascular: Regular rate, Normal S1, Normal S2 Abdomen: Normal bowel sounds, Soft, No tenderness Extremities: Other (1+ edema B) Medications Current Medications Medications Dose Ordered Sig/Renan Route Start Time Stop Time Status Last Admin Dose Admin Atorvastatin Calcium 20 mg HS PO 04/01/24 22:00 04/02/24 22:52 20 MG Piperacillin Sod/ Tazobactam Sod 100 ml @ 25 mls/hr Q8H IV 04/01/24 08:00 04/03/24 09:10 25 MLS/HR Levothyroxine Sodium 75 mcg QAM@0600 PO 04/01/24 06:00 04/03/24 05:30 75 MCG Apixaban 2.5 mg BID PO 04/01/24 10:00 UNV Acetaminophen/ Hydrocodone Bitart 1 tab Q4HP PRN PO 04/01/24 02:00 04/03/24 05:30 1 TAB Ondansetron HCl 4 mg Q4HP PRN IV 04/01/24 02:00 Docusate Sodium 100 mg BIDPRN PRN PO 04/01/24 02:00 Acetaminophen 650 mg Q6HP PRN PO 04/01/24 02:00 Nitroglycerin 0.4 mg Q5MINP PRN SL 04/01/24 03:15 Morphine Sulfate 2 mg Q30M PRN IV 04/01/24 03:15 Terazosin HCl 2 mg HS PO 04/01/24 22:00 04/02/24 22:51 2 MG Carvedilol 3.125 mg Q12HR PO 04/01/24 22:00 04/02/24 22:52 3.125 MG Furosemide 40 mg BID IV 04/02/24 10:00 04/03/24 09:10 40 MG Pantoprazole Sodium 40 mg DAILY IV 04/02/24 10:00 04/03/24 09:11 40 MG Laboratory Results Laboratory Tests 04/03/24 06:00 Chemistry Test 04/03/24 06:00 Albumin 2.8 g/dL (3.2-4.8) L Calcium Level 8.5 mg/dL (8.7-10.4) L Magnesium Level 1.9 mg/dL (1.6-2.6) Total Protein 4.9 g/dL (5.7-8.2) L LFT Test 04/03/24 06:00 Alanine Aminotransferase (ALT) 100 U/L (7-40) H Alkaline Phosphatase 75 U/L (46-116) Aspartate Amino Transferase (AST) 63 U/L (13-40) H Total Bilirubin 0.8 mg/dL (0.2-1.0) Urinalysis Test 04/01/24 19:30 Urine Color Yellow (Yellow) Urine Clarity Clear (Clear) Urine pH 5.5 (5.0-9.0) Urine Specific [place] 1.027 (1.001-1.035) Urine Protein Trace (Negative) H Urine Ketones 1+ (Negative) H Urine Blood Negative /uL (Negative) Urine Nitrite Negative (Negative) Urine Bilirubin Negative (Negative) Urine Urobilinogen Normal mg/dL (Negative) Urine Leukocyte Esterase Negative /uL (Negative) Urine RBC 1 /hpf (0 - 3) Urine WBC 2 /hpf (0 - 3) Urine Squamous Epithelial Cells Few /hpf (<5) Urine Bacteria Few /hpf (None Seen) H Urine Glucose Normal mg/dL (Normal) Microbiology Microbiology Date/Time Source Procedure Growth Status 04/01/24 06:28 Nose MRSA Screen - Final Complete 04/01/24 00:25 Blood Blood Culture - Preliminary NO GROWTH AFTER 48 HOURS OF INCUBATION. Resulted Assessment/Plan Assessment/Plan Generalized weakness CKD Hypothyroidism Afib Recent pneumonia COPD CAD h/o CABG Diastolic HF Mixed hyperlipidemia Obesity Anemia, acute on chronic, most likely due to CKD PLAN: 04/01/24: Physical therapy DC IV fluids Lasix Zosyn IV Eliquis Lipitor 04/02/24: DC IV fluids Increase Lasix to 40 mg bid Transfuse 1 units RBCs Check occult blood in stools Thoracentesis per Dr. Mckeon Hold Eliquis Physical therapy Zosyn for PNA Protonix 04/03/24: R hip pain: CT R hip Anemia w hypotension: Transfuse one more unit RBCs CKD HF: Lasix Pneumonia: Zosyn Physical therapy Plan discussed with: Patient, Spouse My Orders Orders - SHANE FULTON MD Procedure Category Date Status Time Packedcells -Active BBK 04/03/24 Transmitted Bleeding 11:31 Type And Screen BBK 04/03/24 Transmitted 11:31 Ct R Hip With Out CT 04/03/24 Logged Contrast 11:31 Date of Service: Apr 03, 2024 Billing Provider: HSANE FULTON MD Common Visit Codes: NOT BILLABLE SHANE FULTON MD Apr 03, 2024 11:37
--- NOTE | 2024-04-03 14:08 | DVH ---
INDICATION: pain, fall COMPARISON: None TECHNIQUE: CT of the right was performed without contrast. Volume transverse images were obtained a nd reconstructed in multiple planes using bone and soft tissue algorithms. CONTRAST: None Radiation Dose Information: CT Dose: CTDI volume is 25.67 mGy. Dose-length product is 1080.14 mGy*cm FINDINGS: The alignment is normal. The joint spaces are normal. There is no fracture, dislocation, or focal osseous lesions. Right hip prosthesis is noted. Heterogeneous mass in the right pelvis measuring 10 cm long 5.8 cm in transverse dimension 5.3 cm in AP dimension. Communication with a soft tissue mass adjacent the right iliac bone which appears heter ogeneous and measures 8.5 cm in transverse dimension and 5.3 cm in AP dimension. Is may represent an abscess or hematoma. IMPRESSION: Right hip prosthesis in place. No acute fracture There is a right pelvic mass which appears heterogeneous and measures 10 x 5.8 cm. It appears to comm unicate with a mass along the right iliac bone which measures 8.5 x 5.3 cm. Findings may represent ab scess or hematoma.
--- NOTE | 2024-04-03 16:55 | DVHINCON2 ---
Date Seen: Apr 03, 2024 Referring Physician jose f Reason for Consultation atrial Fibrillation History of Present Illness 88-year-old male with PMH for chronic atrial fibrillation on Eliquis, CAD s/p CABG approximately 30 years ago, PTCA stent 2009, prostate CA, COPD, HTN, HLD presents to the hospital with generalized weakness and right lower extremity pain. Patient states that pain got so severe that patient came to the hospital. Upon presentation to the hospital patient was evaluated and workup showed initial hemoglobin 10.8 decreasing down to 7.5 in 6.6, WBC of 13.7 up to 19.8, lactic acid 5.8, troponin trending negative x3. EKG showing atrial fibrillation with rapid ventricular response at 108 beats per minute, nonspecific T-wave abnormality. Right lower extremity venous duplex negative for DVT. CXR showed right-sided pleural effusion. Past Medical History CAD s/p CABG 30 years ago PTCA stent 2009 Chronic atrial fibrillation on Eliquis HTN HLD COPD Past Surgical History CABG Family History: FH: myocardial infarction FATHER Family member MOTHER FATHER Glaucoma Social History Denies alcohol, tobacco, or illicit drug use Allergies: Coded Allergies: NO KNOWN ALLERGIES (Unverified , 04/17/17) Home Meds Active Scripts Doxycycline Monohydrate (Doxycycline Monohydrate) 100 Mg Cap, 1 CAP PO BID, #20 CAP Prov:SHANE FULTON MD 03/30/24 Methylprednisolone (Medrol Dosepak) 4 Mg Attila, 4 MG PO UD, #21 TAB UAD Prov:SHANE FULTON MD 03/30/24 Reported Medications Ezetimibe (Zetia) 10 Mg Tab, 1 TAB PO DAILY for 90 Days, #90 03/28/24 Furosemide (Furosemide) 20 Mg Tab, 1 TAB PO 3XW for 84 Days, #36 TAKE 1 TABLET BY MOUTH 3 TIMES A WEEK. 03/28/24 Amlodipine Besylate (Amlodipine Besylate) 5 Mg Tab, 1 TAB PO DAILY for 90 Days, #90 03/28/24 Carbamazepine (Carbamazepine) 200 Mg Tab, 1 TAB PO BID for 30 Days, #60 03/26/24 Bicalutamide (Bicalutamide) 50 Mg Tab, 1 TAB PO DAILY for 90 Days, #90 03/26/24 Fluticasone Propionate (Nasal) (Fluticasone Propionate) 50 Mcg/Act Spr, 1 SPRAY NATALIA DAILY for 60 Days, #16 1/4/25 Metoprolol Tartrate (Lopressor) 25 Mg Tb, 0.5 TAB PO DAILY for 90 Days, #45 03/26/24 Terazosin Hcl (Terazosin Hcl) 2 Mg Cap, 1 CAP PO HS for 90 Days, #90 03/26/24 Ketoconazole (Ketoconazole) 2 % Cre, 1 TOP DAILY for 30 Days, #30 03/26/24 Losartan Potassium (Losartan Potassium) 25 Mg Tab, 1 TAB PO DAILY for 90 Days, #90 03/26/24 Apixaban Base (ELIQUIS) 2.5 Mg Tab, 1 TAB PO BID for 30 Days, #60 03/26/24 Brimonidine Tartrate (Brimonidine Tartrate) 0.2 % Delaney, 1 DROP LEFTEYE BID for 75 Days, #10 03/26/24 Rosuvastatin Calcium (Rosuvastatin Calcium) 40 Mg Tab, 1 TAB PO HS for 90 Days, #90 03/26/24 Ferrous Sulfate (Ferosul) 325 Mg Tab, 1 TAB PO 3XW for 91 Days, #39 TAKE 1 TABLET BY MOUTH 3 TIMES A WEEK. 03/26/24 Levothyroxine Sodium (Levothyroxine Sodium) 75 Mcg Tab, 1 TAB PO DAILY for 90 Days, #90 03/26/24 Budesonide (Inhalation) (Budesonide) 0.5 Mg/2 Ml Viviana, 0.5 MG IN BID 04/17/17 Nitroglycerin (NTROSTAT SUBLINGUAL) 0.4 Mg Sl, 0.4 MG SL PRN for 30 Days, #100 *MAY REPEAT EVERY 5 MINUTES X 3 TOTAL IF NO RELIEF, INITIATE ANALGESIC THERAPY. NOTIFY PHYSICIAN *Do not crush. 04/17/17 Latanoprost (LATANOPROST) 0.005 % Delaney, 1 DROP EACHEYE BID for 68 Days, #9 04/17/17 Review of Systems Constitutional: No: Fever, Chills, Sweats, , Other positive: Weakness, Malaise Eyes: No: Pain, Vision change, Conjunctivae inflammation, Eyelid inflammation, Other, Redness ENT: No: Ear pain, Ear discharge, Nose pain, Nose discharge, Nose congestion, Mouth pain, Mouth swelling, Throat pain, Throat swelling, Other Respiratory: No: Cough, Dry, , Wheezing, Hemoptysis, Pleuritic Pain, Sputum, Wheezing, Other positive: Shortness of breath, SOB with exertion Cardiovascular: ; No: Chest Pain Palpitations, Orthopnea, Paroxysmal Noc. Dyspnea, Edema, Lt Headedness, Other Gastrointestinal: No: Nausea, Vomiting, Abdominal Pain, Diarrhea, Constipation, Melena, Hematochezia, Other Genitourinary: No Dysuria, No Frequency, No Incontinence, No Hematuria, No Retention, No Other Musculoskeletal: neck pain; No: other, shoulder pain, arm pain, back pain, hand pain, , foot pain positive: right leg pain Skin: No: Rash, Lesions, Jaundice, Bruising, Other Neurological: Other (Dizziness, headache.); No: Weakness, Numbness, Incoordination, Change in speech, Confusion, Seizures Vital Signs Vital Signs Date Time Temp Pulse Resp B/P (MAP) Pulse Ox O2 Delivery O2 Flow Rate FiO2 04/03/24 14:37 97.2 90 16 106/64 97.2 04/03/24 13:04 100 04/03/24 08:05 Nasal Cannula* 3 32 Physical Exam General appearance: Ill-appearing, in mild acute distress. HEENT: Exam shows: Normocephalic, atraumatic, PERRLA, EOMI Neck: Supple, no bruits Chest: Equal chest excursion bilaterally. Breath sounds rhonchi/rales. Heart: Rhythm: IRRegular rate; no murmur or gallop Abdomen: Exam shows: Soft, nontender, nondistended Musculoskeletal: No clubbing, no cyanosis, no lower extremity edema Dermatology: Skin warm, moist. Neurological: Exam shows: Alert and oriented x4, normal speech Available prior records, labs, EKG, rhythm strips reviewed and interpreted Labs/Diagnostic Data Labs Test 04/03/24 06:00 04/02/24 05:37 04/01/24 19:30 04/01/24 12:21 Range/Units White Blood Count 11.0 H 4.4-10.8 10^3/uL Red Blood Count 2.46 L 4.5-5.90 10^6/uL Hemoglobin 7.6 #L 13.5-17.5 g/dL Hematocrit 22.9 #L 41.0-53.0 % Mean Corpuscular Volume 93.0 80.0-100.0 fL Mean Corpuscular Hemoglobin 31.0 28.0-32.0 pg Mean Corpuscular Hemoglobin Concent 33.4 32.0-36.0 g/dL Red Cell Distribution Width 16.9 H 11.8-14.3 % Platelet Count 220 140-450 10^3/uL Mean Platelet Volume 8.8 6.9-10.8 fL Neutrophils (%) (Auto) 81.9 H 37.0-80.0 % Lymphocytes (%) (Auto) 11.4 10.0-50.0 % Monocytes (%) (Auto) 6.1 0.0-12.0 % Eosinophils (%) (Auto) 0.6 0.0-7.0 % Basophils (%) (Auto) 0.0 0.0-2.0 % Neutrophils # (Auto) 9.0 H 1.6-8.6 10 ^3/uL Lymphocytes # (Auto) 1.3 0.4-5.4 10 ^3/uL Monocytes # (Auto) 0.7 0-1.3 10 ^3/uL Eosinophils # (Auto) 0.1 0-0.8 10 ^3/uL Basophils # (Auto) 0 0-0.2 10 ^3/uL Nucleated Red Blood Cells 0.2 % Sodium Level 141 136-145 mmol/L Potassium Level 3.8 3.5-5.1 mmol/L Chloride Level 107 98-107 mmol/L Carbon Dioxide Level 29 20-31 mmol/L Anion Gap 5 5-15 Blood Urea Nitrogen 28 H 9-23 mg/dL Creatinine 1.22 0.700-1.30 mg/dL Glomerular Filtration Rate Calc 57 >90 mL/min BUN/Creatinine Ratio 23.0 H 10.0-20.0 Serum Glucose 93 74-106 mg/dL Calcium Level 8.5 L 8.7-10.4 mg/dL Magnesium Level 1.9 1.6-2.6 mg/dL Total Bilirubin 0.8 0.2-1.0 mg/dL Aspartate Amino Transferase (AST) 63 H 13-40 U/L Alanine Aminotransferase (ALT) 100 H 7-40 U/L Alkaline Phosphatase 75 46-116 U/L Total Protein 4.9 L 5.7-8.2 g/dL Albumin 2.8 L 3.2-4.8 g/dL Prothrombin Time 13.5 H 9.3-11.8 sec Prothrombin Time INR 1.30 H 0.9-1.15 Urine Color Yellow Yellow Urine Clarity Clear Clear Urine pH 5.5 5.0-9.0 Urine Specific [place] 1.027 1.001-1.035 Urine Protein Trace H Negative Urine Ketones 1+ H Negative Urine Blood Negative Negative /uL Urine Nitrite Negative Negative Urine Bilirubin Negative Negative Urine Urobilinogen Normal Negative mg/dL Urine Leukocyte Esterase Negative Negative /uL Urine RBC 1 0 - 3 /hpf Urine WBC 2 0 - 3 /hpf Urine Squamous Epithelial Cells Few <5 /hpf Urine Bacteria Few H None Seen /hpf Urine Glucose Normal Normal mg/dL Lactic Acid Level 1.9 0.4-2.0 mmol/L Test 04/01/24 06:25 04/01/24 03:50 04/01/24 02:07 03/31/24 15:44 Range/Units POC Glucose 119 H 70-106 mg/dl Troponin I High Sensitivity 7 </=54 ng/L Thyroid Stimulating Hormone (TSH) 2.97 0.55-4.78 uIU/mL Differential Total Cells Counted 100.0 100 Neutrophils % (Manual) 89 H 37.0-80.0 Band Neutrophils % (Manual) 3 Lymphocytes % (Manual) 8 L 10.0-50.0 Monocytes % (Manual) 0 0-12 Eosinophils % (Manual) 0 0-7 Basophils % (Manual) 0 0.0-2.0 Metamyelocytes % (manual) 0 Myelocytes % (Manual) 0 Promyelocytes % (Manual) 0 Blast Cells % (Manual) 0 Reactive Lymphocytes 0 Platelet Estimate Adequate B-Type Natriuretic Peptide 125.51 0-100 pg/mL Microbiology Date/Time Source Procedure Growth Status 04/01/24 06:28 Nose MRSA Screen - Final Complete 04/01/24 00:25 Blood Blood Culture - Preliminary NO GROWTH AFTER 48 HOURS OF INCUBATION. Resulted Assessment Chronic atrial fibrillation CAD s/p CABG, PTCA stent Anemia Mild acute on chronic HFpEF Pleural effusion HLD Plan/Recommendation * Rate controlled. Continue Coreg. Eliquis held in setting of anemia * Monitoring H&H. S/p PRBC transfusion. * Pulmonology on board, possible thoracentesis. Continue IV antibiotics. * Continue diuresis with Lasix 40 mg IV twice daily. Monitor strict I&Os. * Recent echo with preserved LV and RV function, grade 2 LV DD. No significant valvular structural abnormalities. * CT showing right pelvis heterogeneous mass 10 cm by 5.8 cm x 5.3 cm. Communication was soft tissue mass adjacent to right iliac bone which appears heterogeneous and measures 8.5 cm by 5.3 cm possible abscess versus hematoma. Case Discussed with Dr Rodriguez. Rate controlled, continued on Coreg. Recent echo with normal EF. Continue diuresing. Hold anticoagulation therapy. Monitoring H&H. Critical care, time spent: 40 minutes This medical document was created using an electronic medical record system with voice recognition software and computerized dictation system. Although this document has been carefully reviewed, there might still be some phonetic and typographical errors. Occasional wrong-word or ``sound-alike substitutions may have occurred due to the inherent limitations of voice recognition software. These areas are purely typographical due to imperfections of the software programs and do not reflect any compromise in the patient's medical care. Please read the chart carefully and recognize, using context, where these substitutions have occurred. Thank you for allowing me to participate in the management of this patient. The treatment plan was discussed with and agreed upon by patient/family including requesting consultants and ordering of imaging/procedures. Plan discussed with: Patient, Spouse NYHA Physical activity limitations: Class2(Slight)fatigue,sob Date of Service: Apr 03, 2024 Billing Provider: LUAN BARDALES Cardiology Common Codes: [id number] INP/OBS CARE (High), [id number] CARE 30-74 MIN LUAN BARDALES Apr 03, 2024 16:55
--- NOTE | 2024-04-03 22:37 | DVHINCON2 ---
Date Seen: Apr 03, 2024 Referring Physician Елена Reason for Consultation Atrial Fibrillation History of Present Illness This is an 88-year-old male with a PMH of chronic atrial fibrillation on Eliquis, CAD s/p CABG approximately 30 years ago, PTCA stent 2009, prostate CA, COPD, HTN, HLD presents to the ED with complaints of generalized weakness and right lower extremity pain. Patient states that pain got so severe that patient came to the ED for further evaluation. Upon presentation to the hospital patient was evaluated and workup showed initial hemoglobin 10.8 decreasing down to 7.5 in 6.6, WBC of 13.7 up to 19.8, lactic acid 5.8, troponin trending negative x3. EKG showing atrial fibrillation with rapid ventricular response at 108 beats per minute, nonspecific T-wave abnormality. Right lower extremity venous duplex negative for DVT. CXR showed right-sided pleural effusion. Patient was admitted to the hospital. I am asked to consult on this patient. Family History: FH: myocardial infarction FATHER Family member MOTHER FATHER Glaucoma Allergies: Coded Allergies: NO KNOWN ALLERGIES (Unverified , 04/17/17) Home Meds Active Scripts Doxycycline Monohydrate (Doxycycline Monohydrate) 100 Mg Cap, 1 CAP PO BID, #20 CAP Prov:SHANE FULTON MD 03/30/24 Methylprednisolone (Medrol Dosepak) 4 Mg Attila, 4 MG PO UD, #21 TAB UAD Prov:SHANE FULTON MD 03/30/24 Reported Medications Ezetimibe (Zetia) 10 Mg Tab, 1 TAB PO DAILY for 90 Days, #90 03/28/24 Furosemide (Furosemide) 20 Mg Tab, 1 TAB PO 3XW for 84 Days, #36 TAKE 1 TABLET BY MOUTH 3 TIMES A WEEK. 03/28/24 Amlodipine Besylate (Amlodipine Besylate) 5 Mg Tab, 1 TAB PO DAILY for 90 Days, #90 03/28/24 Carbamazepine (Carbamazepine) 200 Mg Tab, 1 TAB PO BID for 30 Days, #60 03/26/24 Bicalutamide (Bicalutamide) 50 Mg Tab, 1 TAB PO DAILY for 90 Days, #90 03/26/24 Fluticasone Propionate (Nasal) (Fluticasone Propionate) 50 Mcg/Act Spr, 1 SPRAY NATALIA DAILY for 60 Days, #16 03/26/24 Metoprolol Tartrate (Lopressor) 25 Mg Tb, 0.5 TAB PO DAILY for 90 Days, #45 03/26/24 Terazosin Hcl (Terazosin Hcl) 2 Mg Cap, 1 CAP PO HS for 90 Days, #90 03/26/24 Ketoconazole (Ketoconazole) 2 % Cre, 1 TOP DAILY for 30 Days, #30 03/26/24 Losartan Potassium (Losartan Potassium) 25 Mg Tab, 1 TAB PO DAILY for 90 Days, #90 03/26/24 Apixaban Base (ELIQUIS) 2.5 Mg Tab, 1 TAB PO BID for 30 Days, #60 03/26/24 Brimonidine Tartrate (Brimonidine Tartrate) 0.2 % Delaney, 1 DROP LEFTEYE BID for 75 Days, #10 03/26/24 Rosuvastatin Calcium (Rosuvastatin Calcium) 40 Mg Tab, 1 TAB PO HS for 90 Days, #90 03/26/24 Ferrous Sulfate (Ferosul) 325 Mg Tab, 1 TAB PO 3XW for 91 Days, #39 TAKE 1 TABLET BY MOUTH 3 TIMES A WEEK. 03/26/24 Levothyroxine Sodium (Levothyroxine Sodium) 75 Mcg Tab, 1 TAB PO DAILY for 90 Days, #90 03/26/24 Budesonide (Inhalation) (Budesonide) 0.5 Mg/2 Ml Viviana, 0.5 MG IN BID 04/17/17 Nitroglycerin (NTROSTAT SUBLINGUAL) 0.4 Mg Sl, 0.4 MG SL PRN for 30 Days, #100 *MAY REPEAT EVERY 5 MINUTES X 3 TOTAL IF NO RELIEF, INITIATE ANALGESIC THERAPY. NOTIFY PHYSICIAN *Do not crush. 04/17/17 Latanoprost (LATANOPROST) 0.005 % Delaney, 1 DROP EACHEYE BID for 68 Days, #9 04/17/17 Review of Systems Constitutional: No: Fever, Chills, Sweats, , Other positive: Weakness, Malaise Eyes: No: Pain, Vision change, Conjunctivae inflammation, Eyelid inflammation, Other, Redness ENT: No: Ear pain, Ear discharge, Nose pain, Nose discharge, Nose congestion, Mouth pain, Mouth swelling, Throat pain, Throat swelling, Other Respiratory: No: Cough, Dry, , Wheezing, Hemoptysis, Pleuritic Pain, Sputum, Wheezing, Other positive: Shortness of breath, SOB with exertion Cardiovascular: ; No: Chest Pain Palpitations, Orthopnea, Paroxysmal Noc. D yspnea, Edema, Lt Headedness, Other Gastrointestinal: No: Nausea, Vomiting, Abdominal Pain, Diarrhea, Constipation, Melena, Hematochezia, Other Genitourinary: No Dysuria, No Frequency, No Incontinence, No Hematuria, No Retention, No Other Musculoskeletal: neck pain; No: other, shoulder pain, arm pain, back pain, hand pain, , foot pain positive: right leg pain Skin: No: Rash, Lesions, Jaundice, Bruising, Other Neurological: Other (Dizziness, headache.); No: Weakness, Numbness, Incoordination, Change in speech, Confusion, Seizures Vital Signs Vital Signs Date Time Temp Pulse Resp B/P (MAP) Pulse Ox O2 Delivery O2 Flow Rate FiO2 04/03/24 18:12 97.1 82 12 119/71 (87) 100 97.1 04/03/24 08:05 Nasal Cannula* 3 32 Physical Exam GENERAL: Awake, alert, oriented. Ill-appearing. LUNGS: Clear. CARDIOVASCULAR: Heart sounds are good. ABDOMEN: Soft. Labs/Diagnostic Data Labs Test 04/03/24 06:00 04/02/24 05:37 04/01/24 19:30 04/01/24 12:21 Range/Units White Blood Count 11.0 H 4.4-10.8 10^3/uL Red Blood Count 2.46 L 4.5-5.90 10^6/uL Hemoglobin 7.6 #L 13.5-17.5 g/dL Hematocrit 22.9 #L 41.0-53.0 % Mean Corpuscular Volume 93.0 80.0-100.0 fL Mean Corpuscular Hemoglobin 31.0 28.0-32.0 pg Mean Corpuscular Hemoglobin Concent 33.4 32.0-36.0 g/dL Red Cell Distribution Width 16.9 H 11.8-14.3 % Platelet Count 220 140-450 10^3/uL Mean Platelet Volume 8.8 6.9-10.8 fL Neutrophils (%) (Auto) 81.9 H 37.0-80.0 % Lymphocytes (%) (Auto) 11.4 10.0-50.0 % Monocytes (%) (Auto) 6.1 0.0-12.0 % Eosinophils (%) (Auto) 0.6 0.0-7.0 % Basophils (%) (Auto) 0.0 0.0-2.0 % Neutrophils # (Auto) 9.0 H 1.6-8.6 10 ^3/uL Lymphocytes # (Auto) 1.3 0.4-5.4 10 ^3/uL Monocytes # (Auto) 0.7 0-1.3 10 ^3/uL Eosinophils # (Auto) 0.1 0-0.8 10 ^3/uL Basophils # (Auto) 0 0-0.2 10 ^3/uL Nucleated Red Blood Cells 0.2 % Sodium Level 141 136-145 mmol/L Potassium Level 3.8 3.5-5.1 mmol/L Chloride Level 107 98-107 mmol/L Carbon Dioxide Level 29 20-31 mmol/L Anion Gap 5 5-15 Blood Urea Nitrogen 28 H 9-23 mg/dL Creatinine 1.22 0.700-1.30 mg/dL Glomerular Filtration Rate Calc 57 >90 mL/min BUN/Creatinine Ratio 23.0 H 10.0-20.0 Serum Glucose 93 74-106 mg/dL Calcium Level 8.5 L 8.7-10.4 mg/dL Magnesium Level 1.9 1.6-2.6 mg/dL Total Bilirubin 0.8 0.2-1.0 mg/dL Aspartate Amino Transferase (AST) 63 H 13-40 U/L Alanine Aminotransferase (ALT) 100 H 7-40 U/L Alkaline Phosphatase 75 46-116 U/L Total Protein 4.9 L 5.7-8.2 g/dL Albumin 2.8 L 3.2-4.8 g/dL Prothrombin Time 13.5 H 9.3-11.8 sec Prothrombin Time INR 1.30 H 0.9-1.15 Urine Color Yellow Yellow Urine Clarity Clear Clear Urine pH 5.5 5.0-9.0 Urine Specific [place] 1.027 1.001-1.035 Urine Protein Trace H Negative Urine Ketones 1+ H Negative Urine Blood Negative Negative /uL Urine Nitrite Negative Negative Urine Bilirubin Negative Negative Urine Urobilinogen Normal Negative mg/dL Urine Leukocyte Esterase Negative Negative /uL Urine RBC 1 0 - 3 /hpf Urine WBC 2 0 - 3 /hpf Urine Squamous Epithelial Cells Few <5 /hpf Urine Bacteria Few H None Seen /hpf Urine Glucose Normal Normal mg/dL Lactic Acid Level 1.9 0.4-2.0 mmol/L Test 04/01/24 06:25 04/01/24 03:50 04/01/24 02:07 03/31/24 15:44 Range/Units POC Glucose 119 H 70-106 mg/dl Troponin I High Sensitivity 7 </=54 ng/L Thyroid Stimulating Hormone (TSH) 2.97 0.55-4.78 uIU/mL Differential Total Cells Counted 100.0 100 Neutrophils % (Manual) 89 H 37.0-80.0 Band Neutrophils % (Manual) 3 Lymphocytes % (Manual) 8 L 10.0-50.0 Monocytes % (Manual) 0 0-12 Eosinophils % (Manual) 0 0-7 Basophils % (Manual) 0 0.0-2.0 Metamyelocytes % (manual) 0 Myelocytes % (Manual) 0 Promyelocytes % (Manual) 0 Blast Cells % (Manual) 0 Reactive Lymphocytes 0 Platelet Estimate Adequate B-Type Natriuretic Peptide 125.51 0-100 pg/mL Microbiology Date/Time Source Procedure Growth Status 04/01/24 06:28 Nose MRSA Screen - Final Complete 04/01/24 00:25 Blood Blood Culture - Preliminary NO GROWTH AFTER 48 HOURS OF INCUBATION. Resulted Assessment Chronic atrial fibrillation. CAD s/p CABG, PTCA stent. Anemia. Mild acute on chronic HFpEF. Pleural effusion. HLD. Plan/Recommendation I agree with your ongoing assessment and care of plan. Rate controlled. Continue Coreg. Eliquis held in setting of anemia Monitoring H&H. Continue IV antibiotics. Continue diuresis with Lasix 40 mg IV twice daily. Monitor strict I&Os. Recent echo with preserved LV and RV function, grade 2 LV DD. No significant valvular structural abnormalities. Hold anticoagulation therapy. Additional plan as per the hospital course. Plan discussed with: Patient NYHA Physical activity limitations: Class2(Slight)fatigue,sob Date of Service: Apr 03, 2024 Billing Provider: MARRY HAWLEY MD Cardiology Common Codes: [id number] INP/OBS CARE (High), [id number] CARE 30-74 MIN MARRY HAWLEY MD Apr 03, 2024 18:58
--- NOTE | 2024-04-03 23:09 | DVHPN2 ---
Progress Note - Dictate Date Seen: Apr 03, 2024 Medical Necessity Reason Pt with a Central, PICC or Fol: Yes The following are medically ne: Khan Catheter Reason for khan catheter: Strict I&O Subjective Patient seen and examined at bedside. Remains on supplemental oxygen Overnight events reviewed. vital signs Vital Sign Date Time Temp Pulse Resp B/P (MAP) Pulse Ox O2 Delivery O2 Flow Rate FiO2 04/03/24 22:00 105/58 04/03/24 21:58 79 04/03/24 21:00 97.4 18 100 97.4 04/03/24 08:05 Nasal Cannula* 3 32 Total Intake and Output 04/02/24 04/02/24 04/03/24 15:00 23:00 07:00 Intake Total 80 ml 450 ml 100 ml Output Total 500 ml 1550 ml Balance 80 ml -50 ml -1450 ml medications Current Medications Medications Dose Ordered Sig/Renan Route Start Time Stop Time Status Last Admin Dose Admin Atorvastatin Calcium 20 mg HS PO 04/01/24 22:00 04/03/24 22:25 20 MG Piperacillin Sod/ Tazobactam Sod 100 ml @ 25 mls/hr Q8H IV 04/01/24 08:00 04/03/24 18:25 25 MLS/HR Levothyroxine Sodium 75 mcg QAM@0600 PO 04/01/24 06:00 04/03/24 05:30 75 MCG Apixaban 2.5 mg BID PO 04/01/24 10:00 UNV Acetaminophen/ Hydrocodone Bitart 1 tab Q4HP PRN PO 04/01/24 02:00 04/03/24 18:24 1 TAB Ondansetron HCl 4 mg Q4HP PRN IV 04/01/24 02:00 Docusate Sodium 100 mg BIDPRN PRN PO 04/01/24 02:00 Acetaminophen 650 mg Q6HP PRN PO 04/01/24 02:00 Nitroglycerin 0.4 mg Q5MINP PRN SL 04/01/24 03:15 Morphine Sulfate 2 mg Q30M PRN IV 04/01/24 03:15 Terazosin HCl 2 mg HS PO 04/01/24 22:00 04/02/24 22:51 2 MG Carvedilol 3.125 mg Q12HR PO 04/01/24 22:00 04/02/24 22:52 3.125 MG Furosemide 40 mg BID IV 04/02/24 10:00 04/03/24 09:10 40 MG Pantoprazole Sodium 40 mg DAILY IV 04/02/24 10:00 04/03/24 09:11 40 MG objective Gen.: Patient lying in bed in no apparent distress. On supplemental oxygen. Head: Normocephalic, atraumatic. Eyes: EOMI/PERRLA. Ears: Normal hearing. Normal anatomy. Neck/trachea: Trachea midline, supple. Nose: Normal external anatomy. Mouth: Moist mucous membranes. Chest: Decreased air entry bilaterally. No wheezing or rhonchi. Cardiovascular: Positive S1, positive S2. Regular rate and rhythm. Abdomen: Positive bowel sounds in all 4 quadrants. Soft, non-tender, non- distended. : Deferred. Rectal: Deferred. Skin: Warm, dry. Intact. Extremities: 2+ radial pulses bilaterally. No lower extremity edema. Neuro: Awake, alert, oriented x3. No gross motor or sensory deficits. Cranial nerves II through XII intact. Gait not assessed. laboratory and microbiology Laboratory Tests 04/03/24 06:00 Test 04/03/24 06:00 Range/Units Serum Glucose 93 74-106 mg/dL Assessment/Plan Impression: Pneumonia, likely gram negative Dependence on supplemental oxygen Atrial fibrillation Pleural effusion Atelectasis Events: Remains on supplemental oxygen, 2 LPM NC Taper O2 as tolerated Pt received 1 unit PRBC yesterday, 1 unit today Monitor hemoglobin Continue bronchodilators Continue antibiotics Incentive spirometry Monitor PT/INR Protonix for GI prophylaxis. Diurese as tolerated w/ Lasix BID Monitor renal function Monitor ins and outs CXR (04/01/24) demonstrated small right-sided pleural effusion and/or atelectasis. Right thoracentesis planned for evacuation of right pleural effusion. Labs and imaging reviewed. Rest of plan as noted below. Plan: Supplemental oxygen Titrate to keep O2 sats above 92%. Continue antibiotics Incentive spirometry Diurese to euvolemia w/ Lasix BID Monitor renal function. Monitor electrolytes. Supplement as necessary. Monitor ins and outs. Plan for right thoracentesis to evacuate right pleural effusion. DVT prophylaxis. Prognosis: Poor given patient's multiple co-morbidities. Rest of plan per hospitalist and other consultants. Thank you, Dr. Hills, for allowing me to participate in this patient's care. Further recommendations will depend on the patient's clinical course. Please do not hesitate to contact me if you have any questions or concerns. This medical document was created using an electronic medical record system with [employer] dictation system. Although these documentations are being carefully reviewed, there may still be some phonetic and typographical changes. The errors are purely typographical, due to imperfection on the software program, and do not reflect any compromise in the patient's medical care. Plan discussed with: Patient, Other (KIYA Gregory) ANGELA THURSTON MD Apr 03, 2024 23:09
[2024-04-04] VITALS (7 sets, daily range): BP systolic 97–110; BP diastolic 62–87; PULSE 66–98; RESP 15–90; TEMP 96.2–98.1; O2SAT 90–100
[2024-04-04 08:39] LABS: Basophils # (auto) 0 10 ^3/uL (0-0.2); Basophils % (auto) 0.1 % (0.0-2.0); Eosinophils # (auto) 0.1 10 ^3/uL (0-0.8); Eosinophils % (auto) 0.7 % (0.0-7.0); Hematocrit 29.2 % (41.0-53.0); Lymphocytes # (auto) 1.3 10 ^3/uL (0.4-5.4); Lymphocytes % (auto) 11.6 % (10.0-50.0); Mean Corpuscular Hemoglobin 31.5 pg (28.0-32.0); Mean Corpuscular Hgb Conc. 34.3 g/dL (32.0-36.0); Mean Corpuscular Volume 91.9 fL (80.0-100.0); Monocytes # (auto) 0.7 10 ^3/uL (0-1.3); Monocytes % (auto) 6.4 % (0.0-12.0); Neutrophils # (auto) 9.4 10 ^3/uL (1.6-8.6); Neutrophils % (auto) 81.2 % (37.0-80.0); Nucleated Red Blood Cells % 0.1 %; Platelet Count (auto) 198 10^3/uL (140-450); Red Blood Cells 3.18 10^6/uL (4.5-5.90); Red Cell Distribution Width 16.1 % (11.8-14.3); White Blood Cell 11.6 10^3/uL (4.4-10.8)
[2024-04-04 09:02] LABS: Alkaline Phosphatase 76 U/L (46-116); Anion Gap 6 (5-15); BUN/Creatinine Ratio 18.8 (10.0-20.0); Blood Urea Nitrogen 22 mg/dL (9-23); Carbon Dioxide 29 mmol/L (20-31); Chloride 104 mmol/L (98-107); Glucose 85 mg/dL (74-106); Magnesium 1.9 mg/dL (1.6-2.6); Sodium 139 mmol/L (136-145)
[2024-04-04 09:03] LABS: Alanine Aminotransferase 81 U/L (7-40); Aspartate Aminotransferase 48 U/L (13-40); Calcium 8.4 mg/dL (8.7-10.4); Potassium 3.5 mmol/L (3.5-5.1)
[2024-04-04 09:04] LABS: Albumin 2.9 g/dL (3.2-4.8); Bilirubin, Total 0.9 mg/dL (0.2-1.0)
--- NOTE | 2024-04-04 13:59 | CONS ---
Pharmacy Clinical Information: From Heart Failure Fallout Report on CQM Application, AgustoAgustin is an 88 year old male with PMH of CAD, COPD, HTN, HLD, DM, Afib, and prostate cancer. His home medications for diabetes is not known. HA1c of 5.7% on 03/26/24 is within ADA goal <7%. According to the 2024 ADA guidelines, insulin should be initiated or intensified for treatment of persistent hyperglycemia (Glu >180 mg/dL). Since his serum glucose levels have been <180 mg/dL, no antihyperglycemic agent is needed at this time. FELICITA TORRES PHARMACIST Apr 04, 2024 13:59
--- NOTE | 2024-04-04 19:59 | DVHNC2 ---
Procedure - Ultrasound-guided RIGHT thoracentesis procedure note: Physician: Dr Cuate Mckeon Time out time: 0 pm Patient medications and allergies reviewed. The risks and benefits of the pr ocedure and the sedation options and risk were discussed with the patient's healthcare proxy. All questions were answered and informed consent was obtained. Patient identification and proposed procedure were verified prior to the procedure by the physician, and a nurse in the patient's room. The heart rate, respiratory rate, oxygen saturations, blood pressure, adequacy of pulmon kasandra ventilation, and response to care were monitored throughout the procedure. The physical status of the patient was reassessed after the procedure. Date: 04/04/2024 Consent: Consent was obtained from patient's healthcare proxy prior to procedure. Indication, risks, and benefits were explained at length. Procedure summary: A time-out was performed and a chest x-ray was reviewed prior to procedure. The appropriate site was confirmed and marked. My hands were washed immediately prior to the procedure, I wore a surgical cap, mask with protective eyewear, sterile gown and sterile gloves throughout the procedure. The patient was prepped and draped in a sterile manner using chlorhexidine scrub after the appropriate level was percussed and confirmed by ultrasound. 1% lidocaine was used to anesthetize the skin, subcutaneous tissue, superior aspect of the rib periosteum and parietal pleura. A finder needle was then introduced over the superior aspect of the rib to locate the pleural fluid; yellow fluid was aspirated. Thoracentesis needle was then introduced through the skin incision into the pleural space using negative aspiration pressure. The thoracentesis catheter was then threaded without difficulty. 550 mL's of yellow colored fluid were removed without difficulty. The catheter was then removed. No immediate complications were noted during the procedure. A postprocedure chest x-ray is pending at the time of this note. The pleural fluid will be sent for cultures and cytology. Estimated blood loss is less than 5 mL's. CPT: 37746 ANGELA MCKEON MD Apr 04, 2024 19:59
[2024-04-04 21:51] LABS: Body Fluid Red Blood Cells 2202 CUMM (0-2000); Body Fluid White Blood Cells 793 CUMM (0-200)
--- NOTE | 2024-04-04 21:52 | DVH ---
CHEST RADIOGRAPH Indication: s/p right thoracentesis Technique: Single frontal view of the chest was obtained COMPARISON: XY CHEST XRAY 1 VIEW on DOS: 04/01/24, XY CHEST XRAY 1 VIEW on DOS: 03/27/24, XY CHEST DIVYA BLE on DOS: 03/27/24, XY CHEST PORTABLE on DOS: 03/25/24 FINDINGS: Lines and Tubes: None Lungs: Bibasilar atelectasis Pleura: Interval decrease in right effusion which is now trace. No significant pneumothorax. No pneumothorax. Cardiomediastinal contours: Unremarkable Bones: Unremarkable IMPRESSION: 1. Interval decrease in right effusion which is now trace. No significant pneumothorax.
[2024-04-04 22:16] LABS: Body Fluid Polymorphonuclear 37 % (0-25)
--- NOTE | 2024-04-04 23:13 | DVHPN2 ---
Progress Note - Dictate Date Seen: Apr 04, 2024 Medical Necessity Reason Pt with a Central, PICC or Fol: Yes The following are medically ne: Khan Catheter Reason for khan catheter: Strict I&O Subjective Patient seen and examined at bedside. Remains on supplemental oxygen Overnight events reviewed. vital signs Vital Sign Date Time Temp Pulse Resp B/P (MAP) Pulse Ox O2 Delivery O2 Flow Rate FiO2 04/04/24 22:19 82 122/81 04/04/24 17:00 97.4 16 100 97.4 04/04/24 08:00 Nasal Cannula* 3 32 Total Intake and Output 04/03/24 04/03/24 04/04/24 15:00 23:00 07:00 Intake Total 300 ml 1200 ml 850 ml Output Total 1100 ml Balance 300 ml 100 ml 850 ml medications Current Medications Medications Dose Ordered Sig/Renan Route Start Time Stop Time Status Last Admin Dose Admin Atorvastatin Calcium 20 mg HS PO 04/01/24 22:00 04/04/24 22:19 20 MG Piperacillin Sod/ Tazobactam Sod 100 ml @ 25 mls/hr Q8H IV 04/01/24 08:00 04/04/24 16:34 25 MLS/HR Levothyroxine Sodium 75 mcg QAM@0600 PO 04/01/24 06:00 04/04/24 06:20 75 MCG Apixaban 2.5 mg BID PO 04/01/24 10:00 UNV Acetaminophen/ Hydrocodone Bitart 1 tab Q4HP PRN PO 04/01/24 02:00 04/04/24 16:49 1 TAB Ondansetron HCl 4 mg Q4HP PRN IV 04/01/24 02:00 Docusate Sodium 100 mg BIDPRN PRN PO 04/01/24 02:00 Acetaminophen 650 mg Q6HP PRN PO 04/01/24 02:00 Nitroglycerin 0.4 mg Q5MINP PRN SL 04/01/24 03:15 Morphine Sulfate 2 mg Q30M PRN IV 04/01/24 03:15 Terazosin HCl 2 mg HS PO 04/01/24 22:00 04/04/24 22:18 2 MG Carvedilol 3.125 mg Q12HR PO 04/01/24 22:00 04/04/24 22:19 3.125 MG Furosemide 40 mg BID IV 04/02/24 10:00 04/04/24 22:17 40 MG Pantoprazole Sodium 40 mg DAILY IV 04/02/24 10:00 04/04/24 10:15 40 MG objective Gen.: Patient lying in bed in no apparent distress. On supplemental oxygen. Head: Normocephalic, atraumatic. Eyes: EOMI/PERRLA. Ears: Normal hearing. Normal anatomy. Neck/trachea: Trachea midline, supple. Nose: Normal external anatomy. Mouth: Moist mucous membranes. Chest: Decreased air entry bilaterally. No wheezing or rhonchi. Cardiovascular: Positive S1, positive S2. Regular rate and rhythm. Abdomen: Positive bowel sounds in all 4 quadrants. Soft, non-tender, non- distended. : Deferred. Rectal: Deferred. Skin: Warm, dry. Intact. Extremities: 2+ radial pulses bilaterally. No lower extremity edema. Neuro: Awake, alert, oriented x3. No gross motor or sensory deficits. Cranial nerves II through XII intact. Gait not assessed. laboratory and microbiology Laboratory Tests 04/04/24 07:19 Test 04/04/24 07:19 Range/Units Serum Glucose 85 74-106 mg/dL Assessment/Plan Impression: Pneumonia, likely gram negative Dependence on supplemental oxygen Atrial fibrillation Pleural effusion Atelectasis Anemia, symptomatic Events: Remains on supplemental oxygen, 3 LPM NC Taper O2 as tolerated Pt received 1 unit PRBC yesterday Hemoglobin is stable - continue to monitor Plan to obtain limited chest ultrasound to assess if pleural effusion is amenable to thoracentesis. Continue bronchodilators PRN Continue antibiotics Incentive spirometry Blood cultures show no growth for 72 hours Monitor PT/INR Protonix QD for GI prophylaxis. Diurese as tolerated w/ Lasix BID Monitor renal function Monitor ins and outs CXR (04/01/24) demonstrated small right-sided pleural effusion and/or atelectasis. Right thoracentesis planned for evacuation of right pleural effusion. Labs and imaging reviewed. Rest of plan as noted below. Plan: Supplemental oxygen Titrate to keep O2 sats above 92%. Continue antibiotics Incentive spirometry Diurese to euvolemia w/ Lasix BID Monitor renal function. Monitor electrolytes. Supplement as necessary. Monitor ins and outs. Plan for right thoracentesis to evacuate right pleural effusion. DVT prophylaxis. Prognosis: Poor given patient's multiple co-morbidities. Rest of plan per hospitalist and other consultants. Thank you, Dr. Hills, for allowing me to participate in this patient's care. Further recommendations will depend on the patient's clinical course. Please do not hesitate to contact me if you have any questions or concerns. This medical document was created using an electronic medical record system with [employer] dictation system. Although these documentations are being carefully reviewed, there may still be some phonetic and typographical changes. The errors are purely typographical, due to imperfection on the software program, and do not reflect any compromise in the patient's medical care. Plan discussed with: Patient, Other (KIYA Maldonado) ANGELA THURSTON MD Apr 04, 2024 23:13
--- NOTE | 2024-04-04 23:45 | DVHPN2 ---
Progress Note - Dictate Date Seen: Apr 04, 2024 Medical Necessity Reason Pt with a Central, PICC or Fol: Yes The following are medically ne: Khan Catheter Reason for khan catheter: Strict I&O Subjective Patient was seen and evaluated in follow up. Patient c/o SOB. Patient underwent ultrasound-guided right thoracentesis with removal of 550 mL's of yellow colored fluid. WBC 11.6. LFTs are minimally elevated. Chest x-ray shows interval decrease in right effusion which is now trace. No significant pneumothorax. Telemetry reviewed. vital signs Vital Sign Date Time Temp Pulse Resp B/P (MAP) Pulse Ox O2 Delivery O2 Flow Rate FiO2 04/04/24 23:19 72 118/65 04/04/24 17:00 97.4 16 100 97.4 04/04/24 08:00 Nasal Cannula* 3 32 Total Intake and Output 04/03/24 04/03/24 04/04/24 15:00 23:00 07:00 Intake Total 300 ml 1200 ml 850 ml Output Total 1100 ml Balance 300 ml 100 ml 850 ml medications Current Medications Medications Dose Ordered Sig/Renan Route Start Time Stop Time Status Last Admin Dose Admin Atorvastatin Calcium 20 mg HS PO 04/01/24 22:00 04/04/24 22:19 20 MG Piperacillin Sod/ Tazobactam Sod 100 ml @ 25 mls/hr Q8H IV 04/01/24 08:00 04/04/24 16:34 25 MLS/HR Levothyroxine Sodium 75 mcg QAM@0600 PO 04/01/24 06:00 04/04/24 06:20 75 MCG Apixaban 2.5 mg BID PO 04/01/24 10:00 UNV Acetaminophen/ Hydrocodone Bitart 1 tab Q4HP PRN PO 04/01/24 02:00 04/04/24 16:49 1 TAB Ondansetron HCl 4 mg Q4HP PRN IV 04/01/24 02:00 Docusate Sodium 100 mg BIDPRN PRN PO 04/01/24 02:00 Acetaminophen 650 mg Q6HP PRN PO 04/01/24 02:00 Nitroglycerin 0.4 mg Q5MINP PRN SL 04/01/24 03:15 Morphine Sulfate 2 mg Q30M PRN IV 04/01/24 03:15 Terazosin HCl 2 mg HS PO 04/01/24 22:00 04/04/24 22:18 2 MG Carvedilol 3.125 mg Q12HR PO 04/01/24 22:00 04/04/24 22:19 3.125 MG Furosemide 40 mg BID IV 04/02/24 10:00 04/04/24 22:17 40 MG Pantoprazole Sodium 40 mg DAILY IV 04/02/24 10:00 04/04/24 10:15 40 MG objective GENERAL: Awake, alert, oriented. Ill-appearing. LUNGS: Clear. CARDIOVASCULAR: Heart sounds are good. ABDOMEN: Soft. laboratory and microbiology Laboratory Tests 04/04/24 07:19 Test 04/04/24 07:19 Range/Units Serum Glucose 85 74-106 mg/dL Problem List Chronic atrial fibrillation. CAD s/p CABG, PTCA stent. Anemia. Mild acute on chronic HFpEF. Pleural effusion. HLD. Assessment/Plan Continued all current supportive medical care. Morphine and [place] for pain management. Lipitor. Coreg. Diuretics with Lasix. Nitro SL. GI prophylactics. IV antibiotics as ordered. Additional plan as per the hospital course. Plan discussed with: Patient MARRY HAWLEY MD Apr 04, 2024 23:45
[2024-04-05] VITALS (7 sets, daily range): BP systolic 101–134; BP diastolic 65–79; PULSE 75–100; RESP 17–20; TEMP 97.2–98.7; O2SAT 96–99
--- NOTE | 2024-04-05 12:32 | DVHPN2 ---
Subjective Seen and examined at bedside. I spoke with the patients spouse on the phone. Patient has an right abscess/mass in the hip. Will get Ortho Consult and IR. However, patient and spouse are leaning more towards Hospice care at home. Changes from previous H/P or p: No Changes Eyes: No Pain, No Vision change, No Conjunctivae inflammation, No Eyelid inflammation, No Other, No Redness ENT: No Ear pain, No Ear discharge, No Nose pain, No Nose discharge, No Nose congestion, No Mouth pain, No Mouth swelling, No Throat pain, No Throat swelling, No Other Cardiovascular: No Chest Pain, No Palpitations, No Orthopnea, No Paroxysmal Noc. Dyspnea, No Edema, No Lt Headedness; Other (Atrial fibrillation) Respiratory: No Cough, No Dry, No Shortness of breath, No SOB with excertion, No Wheezing, No Hemoptysis, No Pleuritic Pain, No Sputum, No Other Gastrointestinal: No Nausea, No Vomiting, No Abdominal Pain, No Diarrhea, No Constipation, No Melena, No Hematochezia, No Other Genitourinary: No Dysuria, No Frequency, No Incontinence, No Hematuria, No Retention, No Other Musculoskeletal: other (Right leg pain); No neck pain, No shoulder pain, No arm pain, No back pain, No hand pain, No leg pain, No foot pain Skin: No Rash, No Lesions, No Jaundice, No Bruising, No Other Objective Vitals Vital Signs Date Time Temp Pulse Resp B/P (MAP) Pulse Ox O2 Delivery O2 Flow Rate FiO2 04/05/24 09:30 117/69 04/05/24 09:30 84 04/05/24 05:00 97.2 17 98 97.2 04/04/24 20:00 Nasal Cannula* 3 32 Intake/Output Intake and Output 04/05/24 07:00 Intake Total 1175 ml Output Total 600 ml Balance 575 ml Intake Oral 975 ml IV Total 200 ml Output Urine Total 600 ml General Appearance: Alert, Oriented X3, Cooperative, mild distress Lungs: Other (Diminished) Cardiovascular: Regular rate, Normal S1, Normal S2 Abdomen: Normal bowel sounds, Soft, No tenderness Musculoskeletal: Other (Right Hip swelling/pain) Extremities: Other (1+ edema B) Medications Current Medications Medications Dose Ordered Sig/Renan Route Start Time Stop Time Status Last Admin Dose Admin Atorvastatin Calcium 20 mg HS PO 04/01/24 22:00 04/04/24 22:19 20 MG Piperacillin Sod/ Tazobactam Sod 100 ml @ 25 mls/hr Q8H IV 04/01/24 08:00 04/05/24 09:20 25 MLS/HR Levothyroxine Sodium 75 mcg QAM@0600 PO 04/01/24 06:00 04/05/24 05:27 75 MCG Apixaban 2.5 mg BID PO 04/01/24 10:00 UNV Acetaminophen/ Hydrocodone Bitart 1 tab Q4HP PRN PO 04/01/24 02:00 04/04/24 16:49 1 TAB Ondansetron HCl 4 mg Q4HP PRN IV 04/01/24 02:00 Docusate Sodium 100 mg BIDPRN PRN PO 04/01/24 02:00 Acetaminophen 650 mg Q6HP PRN PO 04/01/24 02:00 Nitroglycerin 0.4 mg Q5MINP PRN SL 04/01/24 03:15 Morphine Sulfate 2 mg Q30M PRN IV 04/01/24 03:15 Terazosin HCl 2 mg HS PO 04/01/24 22:00 04/04/24 22:18 2 MG Carvedilol 3.125 mg Q12HR PO 04/01/24 22:00 04/05/24 09:30 3.125 MG Furosemide 40 mg BID IV 04/02/24 10:00 04/05/24 09:30 40 MG Pantoprazole Sodium 40 mg DAILY IV 04/02/24 10:00 04/05/24 09:19 40 MG Laboratory Results Laboratory Tests 04/04/24 07:19 Urinalysis Test 04/01/24 19:30 Urine Color Yellow (Yellow) Urine Clarity Clear (Clear) Urine pH 5.5 (5.0-9.0) Urine Specific [place] 1.027 (1.001-1.035) Urine Protein Trace (Negative) H Urine Ketones 1+ (Negative) H Urine Blood Negative /uL (Negative) Urine Nitrite Negative (Negative) Urine Bilirubin Negative (Negative) Urine Urobilinogen Normal mg/dL (Negative) Urine Leukocyte Esterase Negative /uL (Negative) Urine RBC 1 /hpf (0 - 3) Urine WBC 2 /hpf (0 - 3) Urine Squamous Epithelial Cells Few /hpf (<5) Urine Bacteria Few /hpf (None Seen) H Urine Glucose Normal mg/dL (Normal) Microbiology Microbiology Date/Time Source Procedure Growth Status 04/04/24 19:40 Pleural Fluid Gram Stain - Final Resulted 04/04/24 19:40 Pleural Fluid Body Fluid Culture - Preliminary Resulted 04/01/24 06:28 Nose MRSA Screen - Final Complete 04/01/24 00:25 Blood Blood Culture - Preliminary NO GROWTH AFTER 72 HOURS OF INCUBATION. Resulted Assessment/Plan Assessment/Plan # Acute Resp Failure - On 4 liters oxygen # Possible Aspiration PNA - On Zosyn # Pul Edema with Pleural Effusions - s/p Thoracentesis # Right Hip Abscess/Mass - Ortho Cx - IR Drainage # Anemia - Need FOBT - Transfuses 2 PRBC # Severe protein calorie malnutrition - Dietary Cx Plan discussed with: Patient, Spouse My Orders Orders - RL JOHNSON MD Procedure Category Date Status Time *Consult Dr. Baeza CONS 04/05/24 Transmitted Val 12:02 Stool Occult Blood LAB 04/05/24 Logged 12:02 Comprehensive LAB 04/06/24 Verified Metabolic Panel 04:00 Complete Blood Count LAB 04/06/24 Verified 04:00 Magnesium LAB 04/06/24 Verified 04:00 B-Type Natriuretic LAB 04/06/24 Verified Peptide 04:00 Prothrombin Time W/ LAB 04/06/24 Verified INR 04:00 Partial LAB 04/06/24 Verified Thromboplastin Time 04:00 Chest Portable XY 04/06/24 Logged 04:00 * Radiologist Consult CONS 04/05/24 Verified 12:02 Dietary Cons For NOURISH 04/05/24 Transmitted Malnutrition 12:19 Potassium Er Tablet PHA 04/05/24 Logged (Klor-Con Tablet) 12:30 * Personal Care Worker CONS 04/05/24 Transmitted Consult Date of Service: Apr 05, 2024 Billing Provider: RL JOHNSON MD Common Visit Codes: [id number] INP/OBS CARE(HIGH) RL JOHNSON MD Apr 05, 2024 12:31
[2024-04-05] MEDS: LACTULOSE 20Gm/30ML SOLN PO ONE (13:13)
[2024-04-05] MEDS: POTASSIUM CHL 20 Meq TABLET PO ONE (13:13)
--- NOTE | 2024-04-05 22:12 | DVHPN2 ---
Progress Note - Dictate Date Seen: Apr 05, 2024 Medical Necessity Reason Pt with a Central, PICC or Fol: Yes The following are medically ne: Khan Catheter Reason for khan catheter: Strict I&O Subjective Patient was seen and evaluated in follow up. Patient is complaining of SOB. Patient is on 3 LPM NC. Patient has a right abscess/mass in the hip, pending Orth/IR eval. Patient and spouse and leaning towards Hospice care at home. Telemetry reviewed. vital signs Vital Sign Date Time Temp Pulse Resp B/P (MAP) Pulse Ox O2 Delivery O2 Flow Rate FiO2 04/05/24 17:00 97.6 79 18 117/75 (89) 99 97.6 04/05/24 08:00 Nasal Cannula* 3 32 Total Intake and Output 04/04/24 04/04/24 04/05/24 15:00 23:00 07:00 Intake Total 700 ml 475 ml Output Total 600 ml Balance 700 ml -125 ml medications Current Medications Medications Dose Ordered Sig/Renan Route Start Time Stop Time Status Last Admin Dose Admin Atorvastatin Calcium 20 mg HS PO 04/01/24 22:00 04/04/24 22:19 20 MG Piperacillin Sod/ Tazobactam Sod 100 ml @ 25 mls/hr Q8H IV 04/01/24 08:00 04/05/24 16:07 25 MLS/HR Levothyroxine Sodium 75 mcg QAM@0600 PO 04/01/24 06:00 04/05/24 05:27 75 MCG Apixaban 2.5 mg BID PO 04/01/24 10:00 UNV Acetaminophen/ Hydrocodone Bitart 1 tab Q4HP PRN PO 04/01/24 02:00 04/05/24 13:14 1 TAB Ondansetron HCl 4 mg Q4HP PRN IV 04/01/24 02:00 Docusate Sodium 100 mg BIDPRN PRN PO 04/01/24 02:00 Acetaminophen 650 mg Q6HP PRN PO 04/01/24 02:00 Nitroglycerin 0.4 mg Q5MINP PRN SL 04/01/24 03:15 Morphine Sulfate 2 mg Q30M PRN IV 04/01/24 03:15 Terazosin HCl 2 mg HS PO 04/01/24 22:00 04/04/24 22:18 2 MG Carvedilol 3.125 mg Q12HR PO 04/01/24 22:00 04/05/24 09:30 3.125 MG Furosemide 40 mg BID IV 04/02/24 10:00 04/05/24 09:30 40 MG Pantoprazole Sodium 40 mg DAILY IV 04/02/24 10:00 04/05/24 09:19 40 MG objective GENERAL: Awake, alert, oriented. Ill-appearing. LUNGS: Clear. CARDIOVASCULAR: Heart sounds are good. ABDOMEN: Soft. laboratory and microbiology Laboratory Tests 04/04/24 07:19 Test 04/04/24 07:19 Range/Units Serum Glucose 85 74-106 mg/dL Problem List Chronic atrial fibrillation. CAD s/p CABG, PTCA stent. Anemia. Mild acute on chronic HFpEF. Pleural effusion. HLD. Assessment/Plan Continued all current supportive medical care. Morphine and [place] for pain management. Lipitor. Coreg. Diuretics with Lasix. Nitro SL. GI prophylactics. IV antibiotics as ordered. Additional plan as per the hospital course. Dietary Evaluation Review Comments: 1. encourage and monitor PO intake to meet 75% of his needs 2. supplement with Nepro 240ml PO BID if appetite is not improved to meet 75% of his needs Expected Outcomes/Goals: Improve serum protein parameters. Plan discussed with: Patient MARRY HAWLEY MD Apr 05, 2024 22:12
--- NOTE | 2024-04-05 22:43 | DVHPN2 ---
Progress Note - Dictate Date Seen: Apr 05, 2024 Medical Necessity Reason Pt with a Central, PICC or Fol: Yes The following are medically ne: Khan Catheter Reason for khan catheter: Strict I&O Subjective Patient seen and examined at bedside. Remains on supplemental oxygen Overnight events reviewed. vital signs Vital Sign Date Time Temp Pulse Resp B/P (MAP) Pulse Ox O2 Delivery O2 Flow Rate FiO2 04/05/24 17:00 97.6 79 18 117/75 (89) 99 97.6 04/05/24 08:00 Nasal Cannula* 3 32 Total Intake and Output 04/04/24 04/04/24 04/05/24 15:00 23:00 07:00 Intake Total 700 ml 475 ml Output Total 600 ml Balance 700 ml -125 ml medications Current Medications Medications Dose Ordered Sig/Renan Route Start Time Stop Time Status Last Admin Dose Admin Atorvastatin Calcium 20 mg HS PO 04/01/24 22:00 04/04/24 22:19 20 MG Piperacillin Sod/ Tazobactam Sod 100 ml @ 25 mls/hr Q8H IV 04/01/24 08:00 04/05/24 16:07 25 MLS/HR Levothyroxine Sodium 75 mcg QAM@0600 PO 04/01/24 06:00 04/05/24 05:27 75 MCG Apixaban 2.5 mg BID PO 04/01/24 10:00 UNV Acetaminophen/ Hydrocodone Bitart 1 tab Q4HP PRN PO 04/01/24 02:00 04/05/24 13:14 1 TAB Ondansetron HCl 4 mg Q4HP PRN IV 04/01/24 02:00 Docusate Sodium 100 mg BIDPRN PRN PO 04/01/24 02:00 Acetaminophen 650 mg Q6HP PRN PO 04/01/24 02:00 Nitroglycerin 0.4 mg Q5MINP PRN SL 04/01/24 03:15 Morphine Sulfate 2 mg Q30M PRN IV 04/01/24 03:15 Terazosin HCl 2 mg HS PO 04/01/24 22:00 04/04/24 22:18 2 MG Carvedilol 3.125 mg Q12HR PO 04/01/24 22:00 04/05/24 09:30 3.125 MG Furosemide 40 mg BID IV 04/02/24 10:00 04/05/24 09:30 40 MG Pantoprazole Sodium 40 mg DAILY IV 04/02/24 10:00 04/05/24 09:19 40 MG objective Gen.: Patient lying in bed in no apparent distress. On supplemental oxygen. Head: Normocephalic, atraumatic. Eyes: EOMI/PERRLA. Ears: Normal hearing. Normal anatomy. Neck/trachea: Trachea midline, supple. Nose: Normal external anatomy. Mouth: Moist mucous membranes. Chest: Decreased air entry bilaterally. No wheezing or rhonchi. Cardiovascular: Positive S1, positive S2. Regular rate and rhythm. Abdomen: Positive bowel sounds in all 4 quadrants. Soft, non-tender, non- distended. : Deferred. Rectal: Deferred. Skin: Warm, dry. Intact. Extremities: 2+ radial pulses bilaterally. No lower extremity edema. Neuro: Awake, alert, oriented x3. No gross motor or sensory deficits. Cranial nerves II through XII intact. Gait not assessed. laboratory and microbiology Laboratory Tests 04/04/24 07:19 Test 04/04/24 07:19 Range/Units Serum Glucose 85 74-106 mg/dL Assessment/Plan Impression: Pneumonia, likely gram negative Dependence on supplemental oxygen Atrial fibrillation Pleural effusion Atelectasis Anemia, symptomatic Events: Remains on supplemental oxygen, 4 LPM NC Taper O2 as tolerated Pt is out of bed to chair. Hemoglobin is stable - continue to monitor S/p right thoracentesis yesterday - 550 ml yellow fluid evacuated from right pleural space. See separate procedure note for details. Chest x-ray reviewed, demonstrates interval reduction in right pleural effusion. Continue bronchodilators PRN Continue antibiotics Incentive spirometry Monitor PT/INR Protonix QD for GI prophylaxis. Maintain euvolemia - Lasix BID Monitor renal function Monitor ins and outs Labs and imaging reviewed. Rest of plan as noted below. Plan: Supplemental oxygen Titrate to keep O2 sats above 92%. Continue antibiotics Incentive spirometry Diurese to euvolemia w/ Lasix BID Monitor renal function. Monitor electrolytes. Supplement as necessary. Monitor ins and outs. S/p right thoracentesis. DVT prophylaxis. Prognosis: Poor given patient's multiple co-morbidities. Rest of plan per hospitalist and other consultants. Thank you, Dr. Hills, for allowing me to participate in this patient's care. Further recommendations will depend on the patient's clinical course. Please do not hesitate to contact me if you have any questions or concerns. This medical document was created using an electronic medical record system with [employer] dictation system. Although these documentations are being carefully reviewed, there may still be some phonetic and typographical changes. The errors are purely typographical, due to imperfection on the software program, and do not reflect any compromise in the patient's medical care. Dietary Evaluation Review Comments: 1. encourage and monitor PO intake to meet 75% of his needs 2. supplement with Nepro 240ml PO BID if appetite is not improved to meet 75% of his needs Expected Outcomes/Goals: Improve serum protein parameters. Plan discussed with: Patient, Other (KIYA Maldonado) ANGELA THURSTON MD Apr 05, 2024 22:43
[2024-04-06 01:00] VITALS: BP 120/69; PULSE 89; RESP 14; TEMP 97.6; O2SAT 99
[2024-04-06 05:00] VITALS: BP 116/69; PULSE 68; RESP 15; TEMP 97.5; O2SAT 98
--- NOTE | 2024-04-06 07:12 | DVH ---
CHEST RADIOGRAPH Indication: sob Technique: Single frontal view of the chest was obtained Comparison: XY CHEST XRAY 1 VIEW on DOS: 04/04/24, XY CHEST XRAY 1 VIEW on DOS: 04/01/24, XY CHEST XRAY 1 VIEW on DOS: 03/27/24, XY CHEST PORTABLE on DOS: 03/27/24, XY CHEST PORTABLE on DOS: 03/25/24, XY CHEST XRAY 1 VIEW on DOS: 04/04/24 FINDINGS: Lines and Tubes: None Lungs: Bibasilar atelectasis Pleura: Interval decrease in right effusion which is now trace. No significant pneumothorax. No pneumothorax. Cardiomediastinal contours: Unremarkable Bones: Unremarkable IMPRESSION: 1. No interval change.
[2024-04-06 08:30] VITALS: PULSE 71; PULSE 73; RESP 19; O2SAT 99
[2024-04-06 09:00] VITALS: BP 108/56; PULSE 71; RESP 19; TEMP 97.7; O2SAT 99
--- NOTE | 2024-04-06 09:15 | DVHDS2 ---
Discharge Summary Date of Admission Apr 01, 2024 at 03:12 Date of Discharge: Apr 06, 2024 Admitting Diagnosis Possible Aspiration PNA Labs/Diagnostic Data: Laboratory Results Test 04/04/24 19:40 04/04/24 07:19 04/02/24 05:37 04/01/24 19:30 Body Fluid Source Pleural fluid Body Fluid pH 7.0 Body Fluid WBC (Manual) 793 CUMM (0-200) Body Fluid RBC (Manual) 2202 CUMM (0-2000) Body Fluid Mononuclear Cells 63 % Body Fluid Polymorphonuclear Cells 37 % (0-25) White Blood Count 11.6 10^3/uL (4.4-10.8) Red Blood Count 3.18 10^6/uL (4.5-5.90) Hemoglobin 10.0 g/dL (13.5-17.5) Hematocrit 29.2 % (41.0-53.0) Mean Corpuscular Volume 91.9 fL (80.0-100.0) Mean Corpuscular Hemoglobin 31.5 pg (28.0-32.0) Mean Corpuscular Hemoglobin Concent 34.3 g/dL (32.0-36.0) Red Cell Distribution Width 16.1 % (11.8-14.3) Platelet Count 198 10^3/uL (140-450) Mean Platelet Volume 9.4 fL (6.9-10.8) Neutrophils (%) (Auto) 81.2 % (37.0-80.0) Lymphocytes (%) (Auto) 11.6 % (10.0-50.0) Monocytes (%) (Auto) 6.4 % (0.0-12.0) Eosinophils (%) (Auto) 0.7 % (0.0-7.0) Basophils (%) (Auto) 0.1 % (0.0-2.0) Neutrophils # (Auto) 9.4 10 ^3/uL (1.6-8.6) Lymphocytes # (Auto) 1.3 10 ^3/uL (0.4-5.4) Monocytes # (Auto) 0.7 10 ^3/uL (0-1.3) Eosinophils # (Auto) 0.1 10 ^3/uL (0-0.8) Basophils # (Auto) 0 10 ^3/uL (0-0.2) Nucleated Red Blood Cells 0.1 % Sodium Level 139 mmol/L (136-145) Potassium Level 3.5 mmol/L (3.5-5.1) Chloride Level 104 mmol/L (98-107) Carbon Dioxide Level 29 mmol/L (20-31) Anion Gap 6 (5-15) Blood Urea Nitrogen 22 mg/dL (9-23) Creatinine 1.17 mg/dL (0.700-1.30) Glomerular Filtration Rate Calc 60 mL/min (>90) BUN/Creatinine Ratio 18.8 (10.0-20.0) Serum Glucose 85 mg/dL (74-106) Calcium Level 8.4 mg/dL (8.7-10.4) Magnesium Level 1.9 mg/dL (1.6-2.6) Total Bilirubin 0.9 mg/dL (0.2-1.0) Aspartate Amino Transferase (AST) 48 U/L (13-40) Alanine Aminotransferase (ALT) 81 U/L (7-40) Alkaline Phosphatase 76 U/L (46-116) Total Protein 5.0 g/dL (5.7-8.2) Albumin 2.9 g/dL (3.2-4.8) Prothrombin Time 13.5 sec (9.3-11.8) Prothrombin Time INR 1.30 (0.9-1.15) Urine Color Yellow (Yellow) Urine Clarity Clear (Clear) Urine pH 5.5 (5.0-9.0) Urine Specific [place] 1.027 (1.001-1.035) Urine Protein Trace (Negative) Urine Ketones 1+ (Negative) Urine Blood Negative /uL (Negative) Urine Nitrite Negative (Negative) Urine Bilirubin Negative (Negative) Urine Urobilinogen Normal mg/dL (Negative) Urine Leukocyte Esterase Negative /uL (Negative) Urine RBC 1 /hpf (0 - 3) Urine WBC 2 /hpf (0 - 3) Urine Squamous Epithelial Cells Few /hpf (<5) Urine Bacteria Few /hpf (None Seen) Urine Glucose Normal mg/dL (Normal) Test 04/01/24 12:21 04/01/24 06:25 04/01/24 03:50 04/01/24 02:07 Lactic Acid Level 1.9 mmol/L (0.4-2.0) POC Glucose 119 mg/dl (70-106) Troponin I High Sensitivity 7 ng/L (</=54) Thyroid Stimulating Hormone (TSH) 2.97 uIU/mL (0.55-4.78) Test 03/31/24 15:44 Differential Total Cells Counted 100.0 (100) Neutrophils % (Manual) 89 (37.0-80.0) Band Neutrophils % (Manual) 3 Lymphocytes % (Manual) 8 (10.0-50.0) Monocytes % (Manual) 0 (0-12) Eosinophils % (Manual) 0 (0-7) Basophils % (Manual) 0 (0.0-2.0) Metamyelocytes % (manual) 0 Myelocytes % (Manual) 0 Promyelocytes % (Manual) 0 Blast Cells % (Manual) 0 Reactive Lymphocytes 0 Platelet Estimate Adequate B-Type Natriuretic Peptide 125.51 pg/mL (0-100) Other Laboratory Tests 04/04/24 07:19 Brief Hx & Hospital Course: The patient is a 88-year-old male with past medical history prostate cancer, Coronary artery disease, COPD, hypertension, and hyperlipidemia who presented to [facility] ED with complaint of right lower extremity pain and swelling. Patient reports pain progressively get worse, unable to bear weight on his right foot, getting worse that prompted this visit. Patient was recently discharged from this hospital with diagnosis of AFib and pneumonia. Patient was seen and evaluated in the ED, laboratory data shows WBC 13.7, hemoglobin 10.8, hematocrit 32.4, platelets 355, sodium 136, potassium 4.7, BUN 33, creatinine 1.27, GFR 54, glucose 184, troponin 5, lactic acid 5.8 trending down to 3.6, EKG showed AFib with RVR at a rate of 108, normal QRS interval, QTC 467, left axis deviation, possible old inferior or anteroseptal infarct, nonspecific T changes. Extremity venous study shows no sonographic evidence of DVT in the right leg, chest x-ray revealing small right-sided pleural effusion and/or atelectasis, superimposed infection not excluded. Patient was started on IV antibiotic regimen Zosyn. Patient was found to have a Right Retroperitoneal Hematoma, IR was consulted no surgery indicated. Patient and spouse want to be discharged home with hospice and focus on comfort care. Condition at Discharge: Poor Final Diagnosis/Problems List # Acute Resp Failure - On 4 liters oxygen # Possible Aspiration PNA - On Zosyn # Pul Edema with Pleural Effusions - s/p Thoracentesis # Right Hip Abscess/Mass. Retroperitoneal Hematoma - Ortho Cx - No surgery # Anemia - Need FOBT - Transfused 2 PRBC # Severe protein calorie malnutrition - Dietary Cx Discharge Disposition: Hospice - Home Discharge Instruct/Medications Diet: Regular Activity: Light activity Follow Up/Referral: PER HOSPICE MD Medications: per hospice MD Discharge Statement: "Patient was advised to return to the ER or call 911 if any headaches, dizziness, shortness of breath, chest pain, abdominal pain, bleeding, fevers, or worsening of medical condition. Patient was counseled about treatment plan, medications, possible side effects, patientverbalized understanding. All questions were answered to the best of my ability. This discharge took greater then 30 minutes in planning, reviewing documentation, counseling the patient, and discussing with other team members." ASSESSMENT ASSESSMENT Assessment Date of Service: Apr 06, 2024 Billing Provider: RL JOHNSON MD Common Visit Codes: 05259-FNL/OBS DISCH DAY >30min RL JOHNSON MD Apr 06, 2024 09:15
--- NOTE | 2024-04-06 10:25 | DVHINCON2 ---
Date of service: Apr 06, 2024 Reason for Consultation Right hip pain History of Present Illness Mr. Liz is an 88-year-old male who was brought to the hospital due to right lower extremity pain and swelling that was progressively worsening without a known incident or injury. Patient reports that he began experiencing pain over the last few weeks but since being admitted to the hospital and being started on pain medication he notes that he has significantly improved and has been able to walk a little bit better. Patient is otherwise feeling well denying any other complaints or concerns during my evaluation. Past Medical History AFib, CAD, Cancer (PROSTATE), COPD, High Lipids, HTN Past Surgical History CABG, PTCA, and right MONIQUE Family History: FH: myocardial infarction FATHER Family member MOTHER FATHER Glaucoma Family History Noncontributory Social History Patient denies smoking, EtOH, or illicit substance abuse Allergies: Coded Allergies: NO KNOWN ALLERGIES (Unverified , 04/17/17) Home Meds Active Scripts Doxycycline Monohydrate (Doxycycline Monohydrate) 100 Mg Cap, 1 CAP PO BID, #20 CAP Prov:SHANE FULTON MD 03/30/24 Methylprednisolone (Medrol Dosepak) 4 Mg Attila, 4 MG PO UD, #21 TAB UAD Prov:SHANE FULTON MD 03/30/24 Reported Medications Ezetimibe (Zetia) 10 Mg Tab, 1 TAB PO DAILY for 90 Days, #90 03/28/24 Furosemide (Furosemide) 20 Mg Tab, 1 TAB PO 3XW for 84 Days, #36 TAKE 1 TABLET BY MOUTH 3 TIMES A WEEK. 03/28/24 Amlodipine Besylate (Amlodipine Besylate) 5 Mg Tab, 1 TAB PO DAILY for 90 Days, #90 03/28/24 Carbamazepine (Carbamazepine) 200 Mg Tab, 1 TAB PO BID for 30 Days, #60 03/26/24 Bicalutamide (Bicalutamide) 50 Mg Tab, 1 TAB PO DAILY for 90 Days, #90 03/26/24 Fluticasone Propionate (Nasal) (Fluticasone Propionate) 50 Mcg/Act Spr, 1 SPRAY NATALIA DAILY for 60 Days, #16 03/26/24 Metoprolol Tartrate (Lopressor) 25 Mg Tb, 0.5 TAB PO DAILY for 90 Days, #45 03/26/24 Terazosin Hcl (Terazosin Hcl) 2 Mg Cap, 1 CAP PO HS for 90 Days, #90 03/26/24 Ketoconazole (Ketoconazole) 2 % Cre, 1 TOP DAILY for 30 Days, #30 03/26/24 Losartan Potassium (Losartan Potassium) 25 Mg Tab, 1 TAB PO DAILY for 90 Days, #90 03/26/24 Apixaban Base (ELIQUIS) 2.5 Mg Tab, 1 TAB PO BID for 30 Days, #60 03/26/24 Brimonidine Tartrate (Brimonidine Tartrate) 0.2 % Delaney, 1 DROP LEFTEYE BID for 75 Days, #10 03/26/24 Rosuvastatin Calcium (Rosuvastatin Calcium) 40 Mg Tab, 1 TAB PO HS for 90 Days, #90 03/26/24 Ferrous Sulfate (Ferosul) 325 Mg Tab, 1 TAB PO 3XW for 91 Days, #39 TAKE 1 TABLET BY MOUTH 3 TIMES A WEEK. 03/26/24 Levothyroxine Sodium (Levothyroxine Sodium) 75 Mcg Tab, 1 TAB PO DAILY for 90 Days, #90 03/26/24 Budesonide (Inhalation) (Budesonide) 0.5 Mg/2 Ml Viviana, 0.5 MG IN BID 04/17/17 Nitroglycerin (NTROSTAT SUBLINGUAL) 0.4 Mg Sl, 0.4 MG SL PRN for 30 Days, #100 *MAY REPEAT EVERY 5 MINUTES X 3 TOTAL IF NO RELIEF, INITIATE ANALGESIC THERAPY. NOTIFY PHYSICIAN *Do not crush. 04/17/17 Latanoprost (LATANOPROST) 0.005 % Delaney, 1 DROP EACHEYE BID for 68 Days, #9 04/17/17 Review of Systems 10 point review of systems negative except as per HPI Vital Signs Vital Signs Date Time Temp Pulse Resp B/P (MAP) Pulse Ox O2 Delivery O2 Flow Rate FiO2 04/06/24 09:00 97.7 71 19 108/56 (73) 99 97.7 04/05/24 20:00 Nasal Cannula* 3 32 Physical Exam General appearance: A&O x4 in no acute distress HEENT: Normal ENT inspection, pharynx normal, TMs normal Neck: Full range of motion, nontender, normal inspection Respiratory: Chest nontender, without accessory muscle use, no respiratory distress Cardiovascular: No edema, no JVD, normal peripheral pulses Gastrointestinal: Soft, nontender, no organomegaly. Musculoskeletal: right hip range of motion 0-130 with mild pain on movement, no calf tenderness, normal capillary refill, no pedal edema, neurovascularly intact. Skin: Dry, normal color, warm Lymphatic: No adenopathy Labs/Diagnostic Data Labs Test 04/04/24 19:40 04/04/24 07:19 04/02/24 05:37 04/01/24 19:30 Range/Units Body Fluid Source Pleural fluid Body Fluid pH 7.0 Body Fluid WBC (Manual) 793 H 0-200 CUMM Body Fluid RBC (Manual) 2202 H 0-2000 CUMM Body Fluid Mononuclear Cells 63 % Body Fluid Polymorphonuclear Cells 37 H 0-25 % White Blood Count 11.6 H 4.4-10.8 10^3/uL Red Blood Count 3.18 L 4.5-5.90 10^6/uL Hemoglobin 10.0 #L 13.5-17.5 g/dL Hematocrit 29.2 #L 41.0-53.0 % Mean Corpuscular Volume 91.9 80.0-100.0 fL Mean Corpuscular Hemoglobin 31.5 28.0-32.0 pg Mean Corpuscular Hemoglobin Concent 34.3 32.0-36.0 g/dL Red Cell Distribution Width 16.1 H 11.8-14.3 % Platelet Count 198 140-450 10^3/uL Mean Platelet Volume 9.4 6.9-10.8 fL Neutrophils (%) (Auto) 81.2 H 37.0-80.0 % Lymphocytes (%) (Auto) 11.6 10.0-50.0 % Monocytes (%) (Auto) 6.4 0.0-12.0 % Eosinophils (%) (Auto) 0.7 0.0-7.0 % Basophils (%) (Auto) 0.1 0.0-2.0 % Neutrophils # (Auto) 9.4 H 1.6-8.6 10 ^3/uL Lymphocytes # (Auto) 1.3 0.4-5.4 10 ^3/uL Monocytes # (Auto) 0.7 0-1.3 10 ^3/uL Eosinophils # (Auto) 0.1 0-0.8 10 ^3/uL Basophils # (Auto) 0 0-0.2 10 ^3/uL Nucleated Red Blood Cells 0.1 % Sodium Level 139 136-145 mmol/L Potassium Level 3.5 3.5-5.1 mmol/L Chloride Level 104 98-107 mmol/L Carbon Dioxide Level 29 20-31 mmol/L Anion Gap 6 5-15 Blood Urea Nitrogen 22 9-23 mg/dL Creatinine 1.17 0.700-1.30 mg/dL Glomerular Filtration Rate Calc 60 >90 mL/min BUN/Creatinine Ratio 18.8 10.0-20.0 Serum Glucose 85 74-106 mg/dL Calcium Level 8.4 L 8.7-10.4 mg/dL Magnesium Level 1.9 1.6-2.6 mg/dL Total Bilirubin 0.9 0.2-1.0 mg/dL Aspartate Amino Transferase (AST) 48 H 13-40 U/L Alanine Aminotransferase (ALT) 81 H 7-40 U/L Alkaline Phosphatase 76 46-116 U/L Total Protein 5.0 L 5.7-8.2 g/dL Albumin 2.9 L 3.2-4.8 g/dL Prothrombin Time 13.5 H 9.3-11.8 sec Prothrombin Time INR 1.30 H 0.9-1.15 Urine Color Yellow Yellow Urine Clarity Clear Clear Urine pH 5.5 5.0-9.[address] [place] 1.027 1.001-1.035 Urine Protein Trace H Negative Urine Ketones 1+ H Negative Urine Blood Negative Negative /uL Urine Nitrite Negative Negative Urine Bilirubin Negative Negative Urine Urobilinogen Normal Negative mg/dL Urine Leukocyte Esterase Negative Negative /uL Urine RBC 1 0 - 3 /hpf Urine WBC 2 0 - 3 /hpf Urine Squamous Epithelial Cells Few <5 /hpf Urine Bacteria Few H None Seen /hpf Urine Glucose Normal Normal mg/dL Test 04/01/24 12:21 04/01/24 06:25 04/01/24 03:50 04/01/24 02:07 Range/Units Lactic Acid Level 1.9 0.4-2.0 mmol/L POC Glucose 119 H 70-106 mg/dl Troponin I High Sensitivity 7 </=54 ng/L Thyroid Stimulating Hormone (TSH) 2.97 0.55-4.78 uIU/mL Test 03/31/24 15:44 Range/Units Differential Total Cells Counted 100.0 100 Neutrophils % (Manual) 89 H 37.0-80.0 Band Neutrophils % (Manual) 3 Lymphocytes % (Manual) 8 L 10.0-50.0 Monocytes % (Manual) 0 0-12 Eosinophils % (Manual) 0 0-7 Basophils % (Manual) 0 0.0-2.0 Metamyelocytes % (manual) 0 Myelocytes % (Manual) 0 Promyelocytes % (Manual) 0 Blast Cells % (Manual) 0 Reactive Lymphocytes 0 Platelet Estimate Adequate B-Type Natriuretic Peptide 125.51 0-100 pg/mL Microbiology Date/Time Source Procedure Growth Status 04/04/24 19:40 Pleural Fluid Gram Stain - Final Resulted 04/04/24 19:40 Pleural Fluid Body Fluid Culture - Preliminary Resulted 04/01/24 06:28 Nose MRSA Screen - Final Complete 04/01/24 00:25 Blood Blood Culture - Final NO GROWTH AFTER 5 DAYS OF INCUBATION. Complete Right lower extremity venous Doppler ultrasound reviewed and demonstrated: No s onographic evidence of DVT in the right leg. Hip CT scan reviewed and demonstrated: Right hip prosthesis in place. No acute fracture There is a right pelvic mass which appears heterogeneous and measures 10 x 5.8 cm. It appears to communicate with a mass along the right iliac bone which measures 8.5 x 5.3 cm. Findings may represent abscess or hematoma. Assessment Right hip pain S/P right total hip arthroplasty Plan/Recommendation I had a lengthy discussion with the patient and after discussing his case and reviewing his imaging studies with Dr. Palafox we have recommended against any surgical intervention at this time and instead advised to continue with conservative treatment with rice and pain control given his symptoms have improved since being admitted and is able to bear weight and move with only mild pain. I advised the patient to follow up with our office on an outpatient basis for further evaluation once he has been discharged home. He understood and agreed. Thank for allowing us to participate in the care of your patient. Plan discussed with: Patient NASIM FGIUEROA ELIO Apr 06, 2024 10:25
[2024-04-06 11:40] LABS: Basophils # (auto) 0 10 ^3/uL (0-0.2); Basophils % (auto) 0.2 % (0.0-2.0); Eosinophils # (auto) 0.1 10 ^3/uL (0-0.8); Eosinophils % (auto) 1.1 % (0.0-7.0); Hematocrit 31.6 % (41.0-53.0); Hemoglobin 10.6 g/dL (13.5-17.5); INR 1.14 (0.9-1.15); Lymphocytes # (auto) 1.2 10 ^3/uL (0.4-5.4); Lymphocytes % (auto) 10.7 % (10.0-50.0); Mean Corpuscular Hemoglobin 31.3 pg (28.0-32.0); Mean Corpuscular Hgb Conc. 33.6 g/dL (32.0-36.0); Mean Corpuscular Volume 93.1 fL (80.0-100.0); Monocytes # (auto) 0.7 10 ^3/uL (0-1.3); Monocytes % (auto) 6.7 % (0.0-12.0); Neutrophils # (auto) 8.8 10 ^3/uL (1.6-8.6); Neutrophils % (auto) 81.3 % (37.0-80.0); Nucleated Red Blood Cells % 0.1 %; Partial Thromboplastin Time 31.8 SEC (24.5-34.5); Platelet Count (auto) 215 10^3/uL (140-450); Prothrombin Time 11.9 sec (9.3-11.8); White Blood Cell 10.8 10^3/uL (4.4-10.8)
[2024-04-06 12:01] LABS: Alkaline Phosphatase 82 U/L (46-116); Anion Gap 4 (5-15); Aspartate Aminotransferase 37 U/L (13-40); BUN/Creatinine Ratio 17.3 (10.0-20.0); Bilirubin, Total 0.9 mg/dL (0.2-1.0); Blood Urea Nitrogen 19 mg/dL (9-23); Carbon Dioxide 33 mmol/L (20-31); Chloride 104 mmol/L (98-107); Glucose 104 mg/dL (74-106); Potassium 3.5 mmol/L (3.5-5.1); Sodium 141 mmol/L (136-145)
[2024-04-06 12:02] LABS: Alanine Aminotransferase 56 U/L (7-40); Albumin 3.1 g/dL (3.2-4.8); Total Protein 5.5 g/dL (5.7-8.2)
[2024-04-06 13:06] LABS: Protein, Body Fluid 2.3 g/dL (.)
--- NOTE | 2024-04-06 19:08 | DVHPN2 ---
Progress Note - Dictate Date Seen: Apr 06, 2024 Medical Necessity Reason Pt with a Central, PICC or Fol: Yes The following are medically ne: Khan Catheter Reason for khan catheter: Strict I&O Subjective Patient was seen and evaluated in follow up. Patient has no new complaints at this time. Patient denies any cardiac symptoms. Patient is cardiac stable for discharge. Telemetry reviewed. vital signs Vital Sign Date Time Temp Pulse Resp B/P (MAP) Pulse Ox O2 Delivery O2 Flow Rate FiO2 04/06/24 09:00 97.7 71 19 108/56 (73) 99 97.7 04/06/24 08:30 Nasal Cannula* 4 36 Total Intake and Output 04/05/24 04/05/24 04/06/24 15:00 23:00 07:00 Intake Total 100 ml 1060 ml 600 ml Output Total 900 ml Balance 100 ml 160 ml 600 ml medications Current Medications Medications Dose Ordered Sig/Renan Route Start Time Stop Time Status Last Admin Dose Admin Apixaban 2.5 mg BID PO 04/01/24 10:00 UNV objective GENERAL: Awake, alert, oriented. Ill-appearing. LUNGS: Clear. CARDIOVASCULAR: Heart sounds are good. ABDOMEN: Soft. laboratory and microbiology Laboratory Tests 04/06/24 10:53 Test 04/06/24 10:53 Range/Units Serum Glucose 104 74-106 mg/dL Problem List Chronic atrial fibrillation. CAD s/p CABG, PTCA stent. Anemia. Mild acute on chronic HFpEF. Pleural effusion. HLD. Assessment/Plan Continued all current supportive medical care. Morphine and [place] for pain management. Lipitor. Coreg. Diuretics with Lasix. Nitro SL. GI prophylactics. IV antibiotics as ordered. Additional plan as per the hospital course. Dietary Evaluation Review Comments: 1. encourage and monitor PO intake to meet 75% of his needs 2. supplement with Nepro 240ml PO BID if appetite is not improved to meet 75% of his needs Expected Outcomes/Goals: Improve serum protein parameters. Plan discussed with: Patient MARRY HAWLEY MD Apr 06, 2024 14:12
--- NOTE | 2024-04-06 22:30 | DVHPN2 ---
Progress Note - Dictate Date Seen: Apr 06, 2024 Medical Necessity Reason Pt with a Central, PICC or Fol: Yes The following are medically ne: Khan Catheter Reason for khan catheter: Strict I&O Subjective Patient seen and examined at bedside. Remains on supplemental oxygen Overnight events reviewed. vital signs Vital Sign Date Time Temp Pulse Resp B/P (MAP) Pulse Ox O2 Delivery O2 Flow Rate FiO2 04/06/24 09:00 97.7 71 19 108/56 (73) 99 97.7 04/06/24 08:30 Nasal Cannula* 4 36 Total Intake and Output 04/05/24 04/05/24 04/06/24 15:00 23:00 07:00 Intake Total 100 ml 1060 ml 600 ml Output Total 900 ml Balance 100 ml 160 ml 600 ml medications Current Medications Medications Dose Ordered Sig/Renan Route Start Time Stop Time Status Last Admin Dose Admin Apixaban 2.5 mg BID PO 04/01/24 10:00 UNV objective Gen.: Patient lying in bed in no apparent distress. On supplemental oxygen. Head: Normocephalic, atraumatic. Eyes: EOMI/PERRLA. Ears: Normal hearing. Normal anatomy. Neck/trachea: Trachea midline, supple. Nose: Normal external anatomy. Mouth: Moist mucous membranes. Chest: Decreased air entry bilaterally. No wheezing or rhonchi. Cardiovascular: Positive S1, positive S2. Regular rate and rhythm. Abdomen: Positive bowel sounds in all 4 quadrants. Soft, non-tender, non- distended. : Deferred. Rectal: Deferred. Skin: Warm, dry. Intact. Extremities: 2+ radial pulses bilaterally. No lower extremity edema. Neuro: Awake, alert, oriented x3. No gross motor or sensory deficits. Cranial nerves II through XII intact. Gait not assessed. laboratory and microbiology Laboratory Tests 04/06/24 10:53 Test 04/06/24 10:53 Range/Units Serum Glucose 104 74-106 mg/dL Assessment/Plan Impression: Pneumonia, likely gram negative Dependence on supplemental oxygen Atrial fibrillation Pleural effusion Atelectasis Anemia, symptomatic Events: Remains on supplemental oxygen, 4 LPM NC Taper O2 as tolerated Hemoglobin is stable - continue to monitor S/p right thoracentesis on 04/04/24 - 550 ml yellow fluid evacuated from right pleural space. See separate procedure note for details. Continue bronchodilators PRN Continue antibiotics Incentive spirometry Monitor PT/INR Protonix QD for GI prophylaxis. Patient is stable for discharge from the pulmonary standpoint. Labs and imaging reviewed. Rest of plan as noted below. Plan: Supplemental oxygen Titrate to keep O2 sats above 92%. Continue antibiotics Incentive spirometry Monitor renal function. Monitor electrolytes. Supplement as necessary. Monitor ins and outs. S/p right thoracentesis. DVT prophylaxis. Prognosis: Poor given patient's multiple co-morbidities. Rest of plan per hospitalist and other consultants. Thank you, Dr. Hills, for allowing me to participate in this patient's care. Further recommendations will depend on the patient's clinical course. Please do not hesitate to contact me if you have any questions or concerns. This medical document was created using an electronic medical record system with [employer] dictation system. Although these documentations are being carefully reviewed, there may still be some phonetic and typographical changes. The errors are purely typographical, due to imperfection on the software program, and do not reflect any compromise in the patient's medical care. Dietary Evaluation Review Comments: 1. encourage and monitor PO intake to meet 75% of his needs 2. supplement with Nepro 240ml PO BID if appetite is not improved to meet 75% of his needs Expected Outcomes/Goals: Improve serum protein parameters. Plan discussed with: Patient, Other (KIYA Agrawal) ANGELA THURSTON MD Apr 06, 2024 22:29
== END 2024-04-06 12:30 | disposition hospice, home (50) | DRG 871 ==
LOC: EDUNIT# 14:22 → ER 14:22 → EDBD 14:22 → OVERFLOW 04-01 03:12 → TELE-EAST 04-01 05:30
PROVIDERS: ADMIT Internal Medicine Geriatric Medicine; ATTEND Internal Medicine Geriatric Medicine
PROC: 30233N1 Transfusion of Nonautologous Red Blood Cells into Peripheral Vein, Percutaneous Approach (ICD-10-PCS; 2024-04-02)
PROC: 0W993ZX Drainage of Right Pleural Cavity, Percutaneous Approach, Diagnostic (ICD-10-PCS; principal; 2024-04-04)
DX: A41.9 Sepsis, unspecified organism (principal); E43 Unspecified severe protein-calorie malnutrition; J69.0 Pneumonitis due to inhalation of food and vomit; I50.33 Acute on chronic diastolic (congestive) heart failure; J96.00 Acute respiratory failure, unspecified whether with hypoxia or hypercapnia; K68.3 Retroperitoneal hematoma; J15.69 Pneumonia due to other Gram-negative bacteria; L02.415 Cutaneous abscess of right lower limb; I48.20 Chronic atrial fibrillation, unspecified; I13.0 Hypertensive heart and chronic kidney disease with heart failure and stage 1 through stage 4 chronic kidney disease, or unspecified chronic kidney disease; J91.8 Pleural effusion in other conditions classified elsewhere; E66.9 Obesity, unspecified; N18.9 Chronic kidney disease, unspecified; Z99.81 Dependence on supplemental oxygen; E03.9 Hypothyroidism, unspecified; E78.2 Mixed hyperlipidemia; I25.10 Atherosclerotic heart disease of native coronary artery without angina pectoris; J44.9 Chronic obstructive pulmonary disease, unspecified; R73.9 Hyperglycemia, unspecified; D64.9 Anemia, unspecified; Z79.01 Long term (current) use of anticoagulants; Z95.1 Presence of aortocoronary bypass graft; Z85.46 Personal history of malignant neoplasm of prostate; Z96.641 Presence of right artificial hip joint; Z82.49 Family history of ischemic heart disease and other diseases of the circulatory system; Z51.5 Encounter for palliative care; I25.2 Old myocardial infarction; Z68.26 Body mass index [BMI] 26.0-26.9, adult
CPT/HCPCS: 32555; 36415; 71045; 73700; 80048; 80053; 81001; 82962; 83605; 83735; 83880; 83986; 84443; 84484; 85007; 85025; 85027; 85610; 85730; 86850; 86900; 86901; 86920; 87040; 87081; 87205; 89051; 92610; 93005; 93971; 97110; 97116; 97163; 97530; G0378; J2470; J2543